=== PATIENT | male | born 1955 ===

== ENCOUNTER → 2020-10-21 10:22 | Outpatient (BNVA) | payer OTHER, SELFPAY | PROVIDERS: PCP Internal Medicine Medical Oncology; Visit Provider Surgery Vascular Surgery ==

== ENCOUNTER 2020-11-01 09:42 | Outpatient (REF) | payer OTHER, SELFPAY ==
--- NOTE | ~2020-11-01 | US_ITS ---
EXAMINATION: US ANTONY COMPLETE US COLOR-FLOW ARTERIAL DUPLEX, LOWER EXTREMITY, BILATERAL VELOCITY MEASUREMENTS TO THE POPLITEAL ARTERIES CLINICAL INFORMATION: Peripheral vascular disease. COMPARISON: None. TECHNIQUE: Real-time ultrasound and Doppler techniques (integrating B-mode 2D vascular images, Doppler spectral analysis and color flow Doppler imaging) were utilized to interrogate the bilateral lower extremities. . FINDINGS: ANTONY: Right: 0.68. Left: 0.85. The right brachial artery measures 170 mmHg with the left brachial artery pressure measuring 192 mmHg, question right innominate or subclavian artery stenosis. RIGHT LOWER EXTREMITY: The right common femoral artery has a triphasic waveform with peak systolic velocity of 195 cm/s. The right profunda femoral artery has a triphasic waveform with peak systolic velocity of 329 cm/s. The proximal superficial femoral artery has a triphasic waveform with peak systolic velocity of 141 cm/s. There is calcified plaque seen throughout the superficial femoral artery. Mid superficial femoral artery has a monophasic waveform with peak systolic velocity of 319. The distal superficial femoral artery has a monophasic waveform with peak systolic velocity of 55 cm/s. The popliteal artery has a monophasic waveform with peak systolic velocity of 35 cm/s. The posterior tibial artery has a biphasic waveform with peak systolic velocity of 55 cm/s. The peroneal has a monophasic waveform with a peak systolic velocity of 36 cm/s. LEFT LOWER EXTREMITY: Common femoral artery demonstrates a triphasic waveform with peak systolic velocity of 170 cm/s. The profunda femoral artery has a biphasic waveform with peak systolic velocity of 213 cm/s. The proximal superficial femoral artery has a biphasic waveform with peak systolic velocity of 132 cm/s. The mid superficial femoral artery has a biphasic waveform with peak systolic velocity of 264 cm/s. The distal superficial femoral artery has a biphasic waveform with peak systolic velocity of 84 cm/s. The popliteal artery has a biphasic waveform with peak systolic velocity of 97 cm/s. Posterior tibial artery has a biphasic waveform with peak systolic velocity of 60 cm/s. The peroneal has a biphasic waveform with peak systolic velocity of 65 cm/s. US/US arterial duplex LE BI IMPRESSION: 1. Bilateral calcified vessels throughout. 2. Right ANTONY of 0.68 corresponding to moderate arterial disease. 3. Left ANTONY is 0.85 corresponding to a mild arterial disease. 4. Right lower extremity duplex Doppler evaluation demonstrates elevation of the right profunda femoral artery velocity consistent with hemodynamically significant stenosis at its origin. There is also elevation of the mid superficial femoral artery velocity with monophasic waveform present and large amount of calcified plaque representing a hemodynamically significant stenosis. 5. Left lower extremity duplex Doppler ultrasound evaluation demonstrates hemodynamically significant stenoses within the profunda femoral artery and mid superficial femoral artery.
== END 2020-11-01 09:43 | disposition home or self-care (01) ==
LOC: HO.US 09:42
PROVIDERS: PCP Internal Medicine Medical Oncology; Visit Provider Surgery Vascular Surgery
DX: I70.213 Atherosclerosis of native arteries of extremities with intermittent claudication, bilateral legs (principal)
CPT/HCPCS: 93923; 93925

== ENCOUNTER → 2020-11-19 11:39 | Outpatient (BNVA) | payer OTHER, SELFPAY | PROVIDERS: PCP Internal Medicine Medical Oncology; Visit Provider Surgery Vascular Surgery ==

== ENCOUNTER 2020-11-24 07:28 | Day surgery (SDC) | payer OTHER, SELFPAY ==
[2020-11-24 07:51] VITALS: BMI 25.9
[2020-11-24 08:02] LABS: MANUAL DIFF FLAG NO
[2020-11-24 08:04] LABS: Basophils Percent Auto 0.4 % (0-2); Eosinophils Absolute Auto 0.2 X10*3/uL (0.0-0.4); Eosinophils Percent Auto 3.2 % (0-4); Hemoglobin 15.4 g/dl (14.0-18.0); Imm Gran Abs Auto 0.01 X10*3/uL (0.00-0.03); Imm Gran Pct Auto 0.1 % (0.0-0.4); Lymphocytes Absolute Auto 2.5 X10*3/uL (1.2-4.9); Lymphocytes Percent Auto 34.7 % (20-40); Mean Corpuscular HGB Conc 32.8 g/dl (31.0-36.0); Mean Corpuscular Hemoglobin 28.1 pg (27.0-33.0); Mean Corpuscular Volume 85.6 fL (80-98); Mean Platelet Volume 9.9 fL (9.4-12.4); Monocytes Absolute Auto 0.6 X10*3/uL (0.1-1.2); Monocytes Percent Auto 8.9 % (2-11); Neutrophils Absolute Auto 3.8 X10*3/uL (2.0-8.3); Neutrophils Percent Auto 52.7 % (45-73); Platelet Count 162 X10*3/uL (160-400); Red Blood Count 5.49 X10*6/uL (4.60-5.80); White Blood Count 7.2 X10*3/uL (4.8-10.8)
[2020-11-24] MEDS: 0.9 % Sodium Chloride 1,000 ML 100 ML IVCONT (08:12)
[2020-11-24 08:15] LABS: Partial Thromboplastin Time 32.2 SEC (24.1-38.0)
[2020-11-24 08:16] LABS: Prothrombin Time 11.4 SEC (10.8-13.0)
[2020-11-24 08:35] LABS: Anion Gap 10 (12-20); Blood Urea Nitrogen 16 mg/dL (9-16); Calcium 9.3 mg/dL (8.4-10.2); Carbon Dioxide 30 mmol/L (22-29); Chloride 103 mmol/L (96-108); Creatinine Clr Calc Pharmacy 65.4; Estimated Glomerular Filt Rate > 60; Glucose Random 112 mg/dL (60-115); Potassium 4.6 mmol/L (3.3-5.1); Sodium 138 mmol/L (135-145)
--- NOTE | 2020-11-24 12:09 | W.PM.OPN ---
Operative Note Operative Note Date of Service: 11/24/20 Narrative: Angiogram report from [facility] Preoperative diagnosis: Atherosclerosis of right lower extremity with activity limiting claudication Postoperative diagnosis: Same Procedure: 1. Ultrasound-guided left common femoral access 2. Aortogram with bilateral lower extremity runoff 3. Atherectomy and plasty of right SFA Surgeon:David Shelton M.D. Electromechanical Assembly Technician:None Anesthesia: Local with moderate conscious sedation for a total of 54 minutes, performed by md Specimens:none Drains:none Estimated blood loss: Less than 10 ml Indications: 65-year-old gentleman with activity limiting claudication. He had noninvasive testing which demonstrated SFA disease. He now presents for endovascular intervention. The patient has signed the informed consent after reviewing risks, complications, benefits, and alternatives previously discussed with the patient in my office. The patient was given the opportunity to ask any additional questions or voice any concerns. All questions were answered to the patient's satisfaction. Procedure in detail: Patient was brought to the angiography suite prior to which a time-out was called for patient identification and site verification. Bilateral groins were prepped and draped in the standard surgical fashion. Under ultrasound guidance left common femoral was punctured with micro puncture needle and wire. Subsequently a precision 4 [place] sheath was then placed. The FeedRoom wire was advanced to the level of the aorta. 4 [place] Flush catheter was brought up and parked at the level of the renal arteries. Aortogram was then undertaken. Catheter was brought down to the level of the iliac bifurcation. Iliacs were subsequently imaged. Catheter was then brought in up and over to the right side SFA. Runoff study was then undertaken. At this point we identified the mid SFA high-grade lesion. We were able to traverse this with an 035 wire. At this 5000 units of systemic heparin was given. An up and over 6 [place] sheath was then placed and have right side. We then exchanged out for a spider wire. A Hawk 1 atherectomy device was used in the mid SFA. For passes of the atherectomy device was then undertaken. Once this was accomplished it demonstrated reasonable result. We followed this up with a drug coated 6 x 80 balloon. This was brought into position under 3 minutes. And insufflated for a total of 3 minutes in duration. Once this was accomplished catheter wire sheath was brought back to the ipsilateral side. Through the sheath the left lower extremity runoff was then undertaken. Once this is accomplished StarClose closure device was then placed. At the end of the case sponge instrument counts were correct. Patient tolerated the procedure well. Returned to recovery with stable vitals. Interpretation of films: 1. Ultrasound demonstrates appropriate femoral puncture. Image of which was saved. 2. Aortogram demonstrates appropriate caliber aorta. Minimal disease. Appropriate take-off of the renals. 3. Iliac images demonstrate good flow through bilateral iliacs. Mild tortuosity. 4. Right lower extremity study demonstrated good flow through the common femoral and profundus SFA had good flow in the proximal portion midportion had high-grade stenosis immediately reconstituted good flow through the popliteal and 3 vessel runoff. 5. Left over lower extremity runoff study was a mere image of the right. Good flow through the common femoral and profundus mid SFA had a high-grade stenosis. Goes all the way down normal flow down into the popliteal and good 3 vessel runoff. 6. Completion right lower extremity image demonstrated excellent flow through the right SFA. Conclusion: 1. Successful atherectomy and plasty of right SFA. Due to the use of a drug coated balloon he will require a minimum of 6 months of Plavix and aspirin. This note is constructed using voice recognition software. While every effort has been made to ensure accuracy, hand singer errors may have been included. Thank you for allowing me to participate in the care of your patient. Yours sincerely, David Shelton MD, FACS, R.P.V.I.
[2020-11-24 12:30] VITALS: BP 170/78; PULSE 85; RESP 17; TEMP 36.2; O2SAT 98
[2020-11-24] MEDS: Clopidogrel Bisulfate 300 MG TABLET PO (12:43)
[2020-11-24 12:45] VITALS: BP 167/80; PULSE 80; RESP 17; O2SAT 98
[2020-11-24 13:00] VITALS: BP 177/80; PULSE 83; RESP 17; O2SAT 98
[2020-11-24 13:15] VITALS: BP 160/79; PULSE 88; RESP 17; O2SAT 98
[2020-11-24 13:30] VITALS: BP 171/83; PULSE 81; RESP 17; TEMP 36.4; O2SAT 98
--- NOTE | 2020-11-24 13:45 | PC.NURSE ---
Patient arrived to pacu with a nickel size hematoma to left groin. 1230 noted hematoma to be increasing in size from nickel to golfball then to tennis ball by 1245. Pressure and ice applied hematoma stable. Dr. shelton notified and questioned if still ok to be discharged at 1400. Dr. Shelton said yes.
[2020-11-24 14:00] VITALS: BP 153/85; PULSE 81; RESP 17; TEMP 36.7; O2SAT 97
== END 2020-11-24 11:20 | disposition home or self-care (01) ==
PROVIDERS: PCP Internal Medicine Medical Oncology; Visit Provider Surgery Vascular Surgery
DX: I70.211 Atherosclerosis of native arteries of extremities with intermittent claudication, right leg (principal); H91.90 Unspecified hearing loss, unspecified ear; E78.5 Hyperlipidemia, unspecified; Z79.82 Long term (current) use of aspirin
CPT/HCPCS: 36415; 37225; 76937; 80048; 85025; 85610; 85730; 99152; 99153; C1714; C1725; C1760; C1769; C1884; C1887; J2250; J3010; Q9967

== ENCOUNTER → 2020-12-09 14:58 | Outpatient (BNVA) | payer OTHER, SELFPAY | PROVIDERS: PCP Internal Medicine Medical Oncology; Visit Provider Surgery Vascular Surgery ==

== ENCOUNTER 2021-03-07 08:22 | Outpatient (REF) | payer OTHER, SELFPAY ==
--- NOTE | ~2021-03-07 | US_ITS ---
EXAMINATION: US ANTONY COMPLETE US COLOR-FLOW ARTERIAL DUPLEX, LOWER EXTREMITY, BILATERAL VELOCITY MEASUREMENTS TO THE POPLITEAL ARTERIES CLINICAL INFORMATION: Peripheral vascular disease. COMPARISON: Comparison is made to a previous study dated 11/01/2020. TECHNIQUE: Real-time ultrasound and Doppler techniques (integrating B-mode 2D vascular images, Doppler spectral analysis and color flow Doppler imaging) were utilized to interrogate the bilateral lower extremities. . FINDINGS: ANTONY: Right: 0.89. Previously, 0.68. This is improved. Left: 0.84. Previously, 0.85. The right brachial artery measures 195 mmHg with the left brachial artery pressure measuring 179 mmHg, question right innominate or subclavian artery stenosis. RIGHT LOWER EXTREMITY: The right common femoral artery has a triphasic waveform with peak systolic velocity of 240 cm/s. Previously, this measured 1 95 cm/s. The right profunda femoral artery has a triphasic waveform with peak systolic velocity of 259 cm/s. Previously, this measured 329 cm/s. The proximal superficial femoral artery has a triphasic waveform with peak systolic velocity of 217 cm/s. Previously, this measured 141 cm/s. There is calcified plaque seen throughout the superficial femoral artery. Mid superficial femoral artery has a biphasic waveform with peak systolic velocity of 124 cm/s. Previously, 319. This represents an improvement. The distal superficial femoral artery has a biphasic waveform with peak systolic velocity of 227 cm/s. Previously, 55 cm/s. This represents a change or a measurement that overlaps with the mid area previously. The popliteal artery has a biphasic waveform with peak systolic velocity of 93 cm/s. Previously, 35 cm/s. The posterior tibial artery has a biphasic waveform with peak systolic velocity of 95 cm/s. Previously, 55 cm/s. LEFT LOWER EXTREMITY: Common femoral artery demonstrates a biphasic waveform with peak systolic velocity of 160 cm/s. Previously, 170 cm/s. The profunda femoral artery has a triphasic waveform with peak systolic velocity of 184 cm/s. Previously, 213 cm/s. The proximal superficial femoral artery has a biphasic waveform with peak systolic velocity of 1 42 cm/s. Previously, 132 cm/s. The mid superficial femoral artery has a biphasic waveform with peak systolic velocity of 329 cm/s. Previously, 264 cm/s. The distal superficial femoral artery has a biphasic waveform with peak systolic velocity of 84 cm/s. Previously, 84 cm/s. The popliteal artery has a biphasic waveform with peak systolic velocity of 80 cm/s. Previously, 97 cm/s. Posterior tibial artery has a biphasic waveform with peak systolic velocity of 25 cm/s. Previously, 60 cm/s. US/US arterial duplex LE BI IMPRESSION: 1. Bilateral calcified vessels throughout. 2. Right ANTONY of 0.89 is improved and represents mild arterial disease. Previously this measured 0.68. 3. Left ANTONY is 0.84 corresponding to a mild arterial disease and is not significantly changed. 4. Right lower extremity duplex Doppler evaluation demonstrates elevation of the right common femoral artery, profunda femoral artery, proximal right superficial femoral artery, distal right superficial femoral artery velocity consistent with hemodynamically significant stenosis. 5. Left lower extremity duplex Doppler ultrasound evaluation demonstrates hemodynamically significant stenoses within the mid superficial femoral artery. This was seen previously and is likely unchanged.
== END 2021-03-07 08:23 | disposition home or self-care (01) ==
LOC: HO.US 08:22
PROVIDERS: PCP Internal Medicine Medical Oncology; Visit Provider Surgery Vascular Surgery
DX: I70.213 Atherosclerosis of native arteries of extremities with intermittent claudication, bilateral legs (principal)
CPT/HCPCS: 93923; 93925

== ENCOUNTER → 2021-03-24 15:10 | Outpatient (BNVA) | payer OTHER, SELFPAY | PROVIDERS: PCP Internal Medicine Medical Oncology; Visit Provider Surgery Vascular Surgery ==

== ENCOUNTER 2021-06-16 06:17 | Outpatient (REF) | payer OTHER, SELFPAY ==
[2021-06-16 06:23] LABS: MANUAL DIFF FLAG NO
[2021-06-16 07:40] LABS: Basophils Percent Auto 0.5 % (0-2); Eosinophils Absolute Auto 0.2 X10*3/uL (0.0-0.4); Eosinophils Percent Auto 3.6 % (0-4); Hematocrit 45.3 % (42.0-52.0); Imm Gran Abs Auto 0.02 X10*3/uL (0.00-0.03); Imm Gran Pct Auto 0.3 % (0.0-0.4); Lymphocytes Absolute Auto 2.3 X10*3/uL (1.2-4.9); Lymphocytes Percent Auto 37.9 % (20-40); Mean Corpuscular HGB Conc 33.1 g/dl (31.0-36.0); Mean Corpuscular Hemoglobin 28.1 pg (27.0-33.0); Mean Platelet Volume 10.5 fL (9.4-12.4); Monocytes Absolute Auto 0.6 X10*3/uL (0.1-1.2); Monocytes Percent Auto 9.8 % (2-11); Neutrophils Absolute Auto 2.9 x10*3/uL (2.0-8.3); Neutrophils Percent Auto 47.9 % (45-73); Platelet Count 179 X10*3/uL (160-400); Red Blood Count 5.33 X10*6/uL (4.60-5.80); Red Cell Distribution Width 12.7 % (11.0-16.0); White Blood Count 6.1 X10*3/uL (4.8-10.8)
[2021-06-16 08:30] LABS: Alanine Aminotransferase 21 U/L (0-40); Albumin Level 4.1 g/dL (3.5-5.0); Alkaline Phosphatase 69 U/L (39-117); Anion Gap 11 (12-20); Aspartate Amino Transferase 20 U/L (5-37); Bilirubin Total 0.6 mg/dL (0.0-1.0); Blood Urea Nitrogen 17 mg/dL (9-16); Calcium 8.9 mg/dL (8.4-10.2); Carbon Dioxide 27 mmol/L (22-29); Chloride 106 mmol/L (96-108); Cholesterol 193 mg/dL; Estimated Glomerular Filt Rate > 60; Glucose Fasting 120 mg/dL (60-99); HDL Cholesterol 51 mg/dL; LDL Cholesterol Calculated 124 mg/dl; Potassium 4.7 mmol/L (3.3-5.1); Sodium 139 mmol/L (135-145); Total Protein 6.9 g/dL (6.5-8.0); Triglycerides 91 mg/dL; Uric Acid 7.3 mg/dL (3.4-7.0)
[2021-06-16 08:40] LABS: Prostate Specific Antigen 1.71 ng/mL (<0.05-4.0)
== END 2021-06-16 06:18 | disposition home or self-care (01) ==
LOC: HO.LAB 06:17
PROVIDERS: PCP Internal Medicine Medical Oncology; Visit Provider Internal Medicine Medical Oncology
DX: Z12.5 Encounter for screening for malignant neoplasm of prostate (principal); E78.5 Hyperlipidemia, unspecified; E66.3 Overweight
CPT/HCPCS: 36415; 80053; 80061; 84153; 84550; 85025

== ENCOUNTER 2021-06-23 11:26 | Outpatient (REF) | payer OTHER, SELFPAY | END 2021-06-23 11:27 | disposition home or self-care (01) | LOC: HO.LAB 11:26 | PROVIDERS: PCP Internal Medicine Medical Oncology; Visit Provider Internal Medicine Medical Oncology | DX: Z20.822 Contact with and (suspected) exposure to COVID-19 (principal) | CPT/HCPCS: C9803; U0003; U0005 ==

== ENCOUNTER 2021-09-29 13:18 | Outpatient (REF) | payer OTHER, SELFPAY ==
--- NOTE | ~2021-09-29 | US_ITS ---
EXAMINATION: ANKLE-BRACHIAL INDICES SINGLE LEVEL PULSE VOLUME RECORDING ARTERIAL DUPLEX BILATERAL LEGS CLINICAL INFORMATION: Peripheral arterial disease. Right atherectomy. COMPARISON: 03/07/2021 TECHNIQUE: Ankle-brachial indices and PVR at the ankle were obtained. Duplex Doppler of the bilateral lower extremity arterial systems was performed. FINDINGS: RIGHT: Ankle-brachial index: 1.02 PVR: Normal Common femoral: PSV 229 cm/s. Triphasic waveform. Deep femoral: PSV 253 cm/s. Triphasic waveform. Proximal superficial femoral: PSV 297 cm/s. Biphasic waveform. Visible moderate stenosis. Mid superficial femoral: PSV 142 cm/s. Biphasic waveform. Distal superficial femoral: PSV 202 cm/s. Biphasic waveform. Popliteal: PSV 94 cm/s. Biphasic waveform. Posterior tibial: PSV 110 cm/s. Biphasic waveform. Peroneal: PSV 54 cm/s. Biphasic waveform. LEFT: Ankle-brachial index: 0.74 PVR: Mildly abnormal Common femoral: PSV 152 cm/s. Biphasic waveform. Deep femoral: PSV 221 cm/s. Triphasic waveform. Proximal superficial femoral: PSV 129 cm/s. Triphasic waveform. Mid superficial femoral: PSV 456 cm/s. Triphasic waveform. Visible severe stenosis. Distal superficial femoral: PSV 72 cm/s. Triphasic waveform. Popliteal: PSV 75 cm/s. Monophasic waveform. Posterior tibial: PSV the cm/s. Monophasic waveform. Peroneal: PSV 38 cm/s. Monophasic waveform. US/US arterial duplex LE BI IMPRESSION: Right: Normal ANTONY 1.02 and normal PVR. Diffuse femoropopliteal and tibial atherosclerotic disease with a moderate focal stenosis in the proximal superficial femoral artery. Left: Abnormal ANTONY 0.74 and abnormal PVR. Diffuse femoropopliteal and tibial atherosclerotic disease with a severe focal stenosis in the mid superficial femoral artery.
--- NOTE | ~2021-09-29 | US_ITS ---
EXAMINATION: ANKLE-BRACHIAL INDICES SINGLE LEVEL PULSE VOLUME RECORDING ARTERIAL DUPLEX BILATERAL LEGS CLINICAL INFORMATION: Peripheral arterial disease. Right atherectomy. COMPARISON: 03/07/2021 TECHNIQUE: Ankle-brachial indices and PVR at the ankle were obtained. Duplex Doppler of the bilateral lower extremity arterial systems was performed. FINDINGS: RIGHT: Ankle-brachial index: 1.02 PVR: Normal Common femoral: PSV 229 cm/s. Triphasic waveform. Deep femoral: PSV 253 cm/s. Triphasic waveform. Proximal superficial femoral: PSV 297 cm/s. Biphasic waveform. Visible moderate stenosis. Mid superficial femoral: PSV 142 cm/s. Biphasic waveform. Distal superficial femoral: PSV 202 cm/s. Biphasic waveform. Popliteal: PSV 94 cm/s. Biphasic waveform. Posterior tibial: PSV 110 cm/s. Biphasic waveform. Peroneal: PSV 54 cm/s. Biphasic waveform. LEFT: Ankle-brachial index: 0.74 PVR: Mildly abnormal Common femoral: PSV 152 cm/s. Biphasic waveform. Deep femoral: PSV 221 cm/s. Triphasic waveform. Proximal superficial femoral: PSV 129 cm/s. Triphasic waveform. Mid superficial femoral: PSV 456 cm/s. Triphasic waveform. Visible severe stenosis. Distal superficial femoral: PSV 72 cm/s. Triphasic waveform. Popliteal: PSV 75 cm/s. Monophasic waveform. Posterior tibial: PSV the cm/s. Monophasic waveform. Peroneal: PSV 38 cm/s. Monophasic waveform. US/US ANTONY complete IMPRESSION: Right: Normal ANTONY 1.02 and normal PVR. Diffuse femoropopliteal and tibial atherosclerotic disease with a moderate focal stenosis in the proximal superficial femoral artery. Left: Abnormal ANTONY 0.74 and abnormal PVR. Diffuse femoropopliteal and tibial atherosclerotic disease with a severe focal stenosis in the mid superficial femoral artery.
== END 2021-09-29 13:19 | disposition home or self-care (01) ==
LOC: HO.US 13:18
PROVIDERS: PCP Internal Medicine Medical Oncology; Visit Provider Surgery Vascular Surgery
DX: I73.9 Peripheral vascular disease, unspecified (principal)
CPT/HCPCS: 93923; 93925

== ENCOUNTER → 2021-10-06 14:58 | Outpatient (BNVA) | payer OTHER, SELFPAY | PROVIDERS: PCP Internal Medicine Medical Oncology; Visit Provider Surgery Vascular Surgery ==

== ENCOUNTER 2021-12-01 06:37 | Outpatient (REF) | payer OTHER, SELFPAY ==
[2021-12-01 06:52] LABS: MANUAL DIFF FLAG NO
[2021-12-01 07:22] LABS: Basophils Percent Auto 0.5 % (0-2); Eosinophils Absolute Auto 0.2 X10*3/uL (0.0-0.4); Eosinophils Percent Auto 3.5 % (0-4); Hematocrit 44.3 % (42.0-52.0); Hemoglobin 14.6 g/dl (14.0-18.0); Imm Gran Abs Auto 0.01 X10*3/uL (0.00-0.03); Imm Gran Pct Auto 0.2 % (0.0-0.4); Lymphocytes Absolute Auto 2.5 X10*3/uL (1.2-4.9); Lymphocytes Percent Auto 41.5 % (20-40); Mean Corpuscular Volume 84.9 fL (80.0-98.0); Mean Platelet Volume 10.1 fL (9.4-12.4); Monocytes Absolute Auto 0.6 X10*3/uL (0.1-1.2); Neutrophils Absolute Auto 2.7 x10*3/uL (2.0-8.3); Neutrophils Percent Auto 44.3 % (45-73); Platelet Count 153 X10*3/uL (160-400); Red Blood Count 5.22 X10*6/uL (4.60-5.80); Red Cell Distribution Width 12.5 % (11.0-16.0)
[2021-12-01 07:49] LABS: Alanine Aminotransferase 20 U/L (0-40); Albumin Level 4.1 g/dL (3.5-5.0); Alkaline Phosphatase 69 U/L (39-117); Anion Gap 12 (12-20); Aspartate Amino Transferase 19 U/L (5-37); Bilirubin Total 0.7 mg/dL (0.0-1.0); Blood Urea Nitrogen 16 mg/dL (9-16); Calcium 9.4 mg/dL (8.4-10.2); Carbon Dioxide 26 mmol/L (22-29); Chloride 105 mmol/L (96-108); Cholesterol 204 mg/dL; Estimated Glomerular Filt Rate > 60; Glucose Fasting 124 mg/dL (60-99); HDL Cholesterol 50 mg/dL; LDL Cholesterol Calculated 138 mg/dl; Potassium 5.4 mmol/L (3.3-5.1); Sodium 138 mmol/L (135-145); Total Protein 6.8 g/dL (6.5-8.0); Triglycerides 84 mg/dL
[2021-12-01 08:12] LABS: Prostate Specific Antigen 1.43 ng/mL (<0.05-4.0)
== END 2021-12-01 06:38 | disposition home or self-care (01) ==
LOC: HO.LAB 06:37
PROVIDERS: PCP Internal Medicine Medical Oncology; Visit Provider Internal Medicine Medical Oncology
DX: E78.5 Hyperlipidemia, unspecified (principal); I10 Essential (primary) hypertension; N52.9 Male erectile dysfunction, unspecified
CPT/HCPCS: 36415; 80053; 80061; 84153; 85025

== ENCOUNTER 2022-06-05 15:55 | Outpatient (REF) | payer OTHER, SELFPAY ==
--- NOTE | ~2022-06-05 | XR_ITS ---
EXAMINATION: XR HIP, RIGHT XR HIP, LEFT CLINICAL INFORMATION: Bilateral hip pain. COMPARISON: Pelvic radiographs 06/05/2022. TECHNIQUE: Each hip is imaged in AP and frog-lateral projections. There are a total of 4 views, 2 on each side. FINDINGS: No hip joint narrowing or erosive change on either side. No visible chondrocalcinosis. Minor bilateral spurring greater trochanters. Soft tissue planes appears symmetric. Normal bony mineralization. No destructive process. Pubis unremarkable. Vasectomy clips present. XR/XR hip RT min 2V IMPRESSION: -No hip joint narrowing or erosive change. -Minor bilateral spurring greater trochanters.
--- NOTE | ~2022-06-05 | XR_ITS ---
EXAMINATION: XR HIP, RIGHT XR HIP, LEFT CLINICAL INFORMATION: Bilateral hip pain. COMPARISON: Pelvic radiographs 06/05/2022. TECHNIQUE: Each hip is imaged in AP and frog-lateral projections. There are a total of 4 views, 2 on each side. FINDINGS: No hip joint narrowing or erosive change on either side. No visible chondrocalcinosis. Minor bilateral spurring greater trochanters. Soft tissue planes appears symmetric. Normal bony mineralization. No destructive process. Pubis unremarkable. Vasectomy clips present. XR/XR hip LT min 2V IMPRESSION: -No hip joint narrowing or erosive change. -Minor bilateral spurring greater trochanters.
--- NOTE | ~2022-06-05 | XR_ITS ---
EXAMINATION: XR PELVIS XR SACRUM/COCCYX CLINICAL INFORMATION: Low back pain and bilateral hip pain. COMPARISON: Bilateral hip radiographs 06/05/2022 TECHNIQUE: AP view pelvis is performed. The sacrum and coccyx are imaged in 3 views. There are a total of 4 views FINDINGS: Normal bony mineralization. No fracture, dislocation, destructive process. There are degenerative changes lower lumbar spine with disc narrowing and vertebral spurring. The SI joints show no diastases or ankylosis or erosive change. The pubis is unremarkable. Bowel gas normal. There are atherosclerotic calcifications iliac and femoral arteries. XR/XR pelvis 1-2V IMPRESSION: 1. No fracture or destructive process. 2. Degenerative changes lower lumbar spine. 3. Unremarkable SI joints.
--- NOTE | ~2022-06-05 | XR_ITS ---
EXAMINATION: XR PELVIS XR SACRUM/COCCYX CLINICAL INFORMATION: Low back pain and bilateral hip pain. COMPARISON: Bilateral hip radiographs 06/05/2022 TECHNIQUE: AP view pelvis is performed. The sacrum and coccyx are imaged in 3 views. There are a total of 4 views FINDINGS: Normal bony mineralization. No fracture, dislocation, destructive process. There are degenerative changes lower lumbar spine with disc narrowing and vertebral spurring. The SI joints show no diastases or ankylosis or erosive change. The pubis is unremarkable. Bowel gas normal. There are atherosclerotic calcifications iliac and femoral arteries. XR/XR sacrum coccyx min 2V IMPRESSION: 1. No fracture or destructive process. 2. Degenerative changes lower lumbar spine. 3. Unremarkable SI joints.
== END 2022-06-05 15:56 | disposition home or self-care (01) ==
LOC: HO.XRAY 15:55
PROVIDERS: PCP Internal Medicine Medical Oncology; Visit Provider Internal Medicine Medical Oncology
DX: M25.551 Pain in right hip (principal); M25.552 Pain in left hip; M54.50 Low back pain, unspecified
CPT/HCPCS: 72170; 72220; 73502

== ENCOUNTER 2022-09-28 13:13 | Outpatient (REF) | payer OTHER, SELFPAY ==
--- NOTE | ~2022-09-28 | US_ITS ---
EXAMINATION: ANKLE-BRACHIAL INDICES SINGLE LEVEL PULSE VOLUME RECORDING ARTERIAL DUPLEX BILATERAL LEGS CLINICAL INFORMATION: Peripheral vascular disease COMPARISON: 09/29/21. TECHNIQUE: Ankle-brachial indices and PVR at the ankle were obtained. Duplex Doppler of the bilateral lower extremity arterial systems was performed. FINDINGS: RIGHT: Ankle-brachial index: 1.06. Prior 1.02. PVR: Normal Common femoral: PSV 258 cm/s. Biphasic waveform. Deep femoral: PSV 122 cm/s. Triphasic waveform. Proximal superficial femoral: PSV 141 cm/s. Triphasic waveform. Mid superficial femoral: PSV 122 cm/s. Triphasic waveform. Distal superficial femoral: PSV 128 cm/s. Biphasic waveform. Popliteal: PSV 73 cm/s. Triphasic waveform. Posterior tibial: PSV 90 cm/s. Biphasic waveform. Peroneal: PSV 60 cm/s. Triphasic waveform. LEFT: Ankle-brachial index: 0.75. Prior 0.74. PVR: Mildly abnormal Common femoral: PSV 114 cm/s. Biphasic waveform. Deep femoral: PSV 94 cm/s. Triphasic waveform. Proximal superficial femoral: PSV 76 cm/s. Triphasic waveform. Mid superficial femoral: PSV 239 cm/s. Monophasic waveform. Moderate focal stenosis. Distal superficial femoral: PSV 74 cm/s. Monophasic waveform. Popliteal: PSV 52 cm/s. Monophasic waveform. Posterior tibial: PSV 66 cm/s. Monophasic waveform. Peroneal: PSV 40 cm/s. Monophasic waveform. US/US arterial duplex LE BI IMPRESSION: Right: Normal ANTONY 1.06 and normal PVR. Diffuse femoropopliteal and tibial atherosclerotic disease without hemodynamically significant stenosis. Left: Abnormal ANTONY 0.75 and mildly abnormal PVR. Diffuse femoropopliteal and tibial atherosclerotic disease with a moderate focal stenosis in the mid superficial femoral artery.
== END 2022-09-28 13:14 | disposition home or self-care (01) ==
LOC: HO.US 13:13
PROVIDERS: PCP Internal Medicine Medical Oncology; Visit Provider Surgery Vascular Surgery
DX: I70.213 Atherosclerosis of native arteries of extremities with intermittent claudication, bilateral legs (principal)
CPT/HCPCS: 93925

== ENCOUNTER → 2022-11-03 08:05 | Outpatient (REF) | payer OTHER, SELFPAY ==
--- NOTE | 2022-11-03 08:08 | CA_ITS ---
Acquisition Time: 2022-11-03 08:19:40 Total Exercise Time: 00:06:00 Test Indications: SOB Medications: Protocol: RASHEED Max HR: 131 BPM 86% of Pred: 151 BPM Max BP: 200/044 mmHG Max Work Load: 7.0 METS Exercise stress test with exercise 6 min of Rasheed protocol, achieving 86% MPHR, with report of hip pain and calf tightness with request to stop, without anginal symptoms, with isolated PACs and PVCs, atrial cuplets, with hypertensive response to exercise with max BP 200/44, with EKG changes meeting critieria for ischemia: 2-3mm downsloping ST depression inferiorly, V3-V6 with slow gradual improvement in recovery. EKGs back to baseline after 12 minutes. Test reviewed with Dr Mcgarry. Pt is on aspirin and metoprolol. He denies exertional angina Informed of + stress test findings and that he needs further cardiac evaluation. Instructed on light physical activity only. ED care if needed for any symptoms. Message sent to Dr Perez with report and recommendation for exercise nuclear stress test and cardiology consult. Referred By: Daniele Perez Overread By: BC RASHEED
== END ==
LOC: HO.CARD 08:05
PROVIDERS: PCP Internal Medicine Medical Oncology; Visit Provider Internal Medicine Medical Oncology
DX: I77.9 Disorder of arteries and arterioles, unspecified (principal); R06.09 Other forms of dyspnea
CPT/HCPCS: 93017

== ENCOUNTER 2022-11-03 09:05 | Outpatient (REF) | payer OTHER, SELFPAY ==
[2022-11-03 09:15] LABS: MANUAL DIFF FLAG NO
[2022-11-03 09:55] LABS: Basophils Absolute Auto 0.1 X10*3/uL (0.0-0.2); Basophils Percent Auto 0.8 % (0-2); Eosinophils Absolute Auto 0.1 X10*3/uL (0.0-0.4); Eosinophils Percent Auto 1.6 % (0-4); Hematocrit 43.5 % (42.0-52.0); Hemoglobin 14.5 g/dl (14.0-18.0); Imm Gran Abs Auto 0.02 X10*3/uL (0.00-0.03); Imm Gran Pct Auto 0.3 % (0.0-0.4); Lymphocytes Absolute Auto 1.8 X10*3/uL (1.2-4.9); Lymphocytes Percent Auto 28.6 % (20-40); Mean Corpuscular HGB Conc 33.3 g/dl (31.0-36.0); Mean Corpuscular Hemoglobin 28.4 pg (27.0-33.0); Mean Corpuscular Volume 85.1 fL (80.0-98.0); Mean Platelet Volume 10.4 fL (9.4-12.4); Monocytes Absolute Auto 0.6 X10*3/uL (0.1-1.2); Neutrophils Absolute Auto 3.7 x10*3/uL (2.0-8.3); Neutrophils Percent Auto 59.7 % (45-73); Platelet Count 191 X10*3/uL (160-400); Red Blood Count 5.11 X10*6/uL (4.60-5.80); Red Cell Distribution Width 12.6 % (11.0-16.0); White Blood Count 6.2 X10*3/uL (4.8-10.8)
[2022-11-03 10:25] LABS: Alanine Aminotransferase 23 U/L (0-40); Albumin Level 4.1 g/dL (3.5-5.0); Alkaline Phosphatase 76 U/L (39-117); Anion Gap 13 (12-20); Aspartate Amino Transferase 20 U/L (5-37); Bilirubin Total 0.7 mg/dL (0.0-1.0); Blood Urea Nitrogen 16 mg/dL (9-16); Calcium 9.1 mg/dL (8.4-10.2); Carbon Dioxide 26 mmol/L (22-29); Chloride 107 mmol/L (96-108); Cholesterol 210 mg/dL; Estimated Glomerular Filt Rate 57; Glucose Fasting 111 mg/dL (60-99); HDL Cholesterol 50 mg/dL; LDL Cholesterol Calculated 145 mg/dl; Potassium 5.1 mmol/L (3.3-5.1); Sodium 141 mmol/L (135-145); Total Protein 6.9 g/dL (6.5-8.0); Triglycerides 77 mg/dL
== END 2022-11-03 09:06 | disposition home or self-care (01) ==
LOC: HO.LAB 09:05
PROVIDERS: Visit Provider Internal Medicine Medical Oncology
DX: Z13.89 Encounter for screening for other disorder (principal)
CPT/HCPCS: 36415; 80053; 80061; 84153; 85025

== ENCOUNTER → 2022-11-09 09:01 | Outpatient (BNVA) | payer OTHER, SELFPAY | PROVIDERS: PCP Internal Medicine Medical Oncology; Visit Provider Surgery Vascular Surgery | DX: Z13.89 Encounter for screening for other disorder (principal) ==

== ENCOUNTER → 2022-11-14 07:54 | Outpatient (REF) | payer OTHER, SELFPAY ==
--- NOTE | ~2022-11-14 | NM_ITS ---
EXERCISE MYOCARDIAL PERFUSION STUDY INDICATION: Chest pain, assess for ischemia TECHNIQUE: The patient was brought in for an exercise perfusion study on 11/14/2022. Patient performed exercise as per Jomar protocol and was injected 25 mCi of sestamibi once target heart rate was achieved. Images were obtained using the SPECT gamma camera interlaced with the gating device. Images were obtained in supine position. Resting perfusion study was performed on 11/15/2022. Patient was administered 25 mCi of sestamibi intravenously at rest. Images were then obtained in supine position. Images were processed with the software and compared side to side in short axis, horizontal long axis and vertical long axis views. Total DLP 90mGy-cm. FINDINGS: Raw images were reviewed. The stress perfusion study showed no significant perfusion abnormality. Both uncorrected as well as CT attenuation corrected images were reviewed. The gated study shows normal LV systolic function with calculated LVEF of 53%. LV cavity is normal in size. The gated study shows normal wall thickening and contraction of segments. Resting study shows no significant perfusion abnormality. Gating at rest reveals normal wall motion with ejection fraction at 68%. The findings are consistent with no clear reversible or fixed perfusion defects. NM/NM amanda perf SPECT rest & str IMPRESSION: 1. Myocardial perfusion imaging study shows likely normal myocardial perfusion. 2. Gated LVEF is 53% during stress and 68% during rest. 3. Transient ischemic dilatation not present. EKG component of the test reported separately.
--- NOTE | 2022-11-14 08:01 | CA_ITS ---
Acquisition Time: 2022-11-14 08:11:34 Total Exercise Time: 00:04:00 Test Indications: ABN ETT Medications: SEE H Protocol: RASHEED Max HR: 134 BPM 88% of Pred: 151 BPM Max BP: 194/058 mmHG Max Work Load: 5.7 METS Exercise stress test exercise 4 min of Rasheed protocol achieving 88% MPHR, with 3/10 right chest pressure, with PAC, PVCs, short atrial runs, with elevated blood pressures at baseline and normotensive response to exercise, with EKG changes meeting criteria for ischemia: 2-3mm downslop depression lead V3-V6, and inferiorly with slow gradual improvement in recovery. In recovery his chest discomfort quickly resolved, Nuclear images pending. Test reviewed with Dr Hurtado Finding of abnormal stress test reviewed with pt. Tang Treadmill score Neg 15, high risk. Need for cardiac cath reviewed with him and he states understanding. Will obtain preprocedure labs today. Will arrange for echocardiogram. Will continue on aspirin and Metoprolol. Will add Atorvastatin and Isosorbide. Need for each medication reviewed with him and the importance stressed. Instructed on light physical activity only and to seek ED care for symptoms that persist. Informed of high risk for ID. Cardiology consult as soon as can be arranged. Referred By: Daniele Perez Overread By: BC RASHEED
[2022-11-14 10:28] LABS: MANUAL DIFF FLAG NO
[2022-11-14 10:41] LABS: Basophils Percent Auto 0.4 % (0-2); Eosinophils Absolute Auto 0.1 X10*3/uL (0.0-0.4); Eosinophils Percent Auto 1.1 % (0-4); Hematocrit 45.2 % (42.0-52.0); Hemoglobin 14.8 g/dl (14.0-18.0); Imm Gran Abs Auto 0.02 X10*3/uL (0.00-0.03); Imm Gran Pct Auto 0.3 % (0.0-0.4); Lymphocytes Absolute Auto 1.7 X10*3/uL (1.2-4.9); Lymphocytes Percent Auto 23.7 % (20-40); Mean Corpuscular HGB Conc 32.7 g/dl (31.0-36.0); Mean Corpuscular Hemoglobin 27.7 pg (27.0-33.0); Mean Corpuscular Volume 84.5 fL (80.0-98.0); Mean Platelet Volume 9.9 fL (9.4-12.4); Monocytes Absolute Auto 0.6 X10*3/uL (0.1-1.2); Neutrophils Absolute Auto 4.9 x10*3/uL (2.0-8.3); Neutrophils Percent Auto 66.5 % (45-73); Platelet Count 150 X10*3/uL (160-400); Red Blood Count 5.35 X10*6/uL (4.60-5.80); Red Cell Distribution Width 12.8 % (11.0-16.0); White Blood Count 7.3 X10*3/uL (4.8-10.8)
[2022-11-14 10:45] LABS: INTERNATIONAL NORM RATIO 0.9 (0.9-1.1); Prothrombin Time 10.8 SEC (10.0-13.1)
[2022-11-14 11:26] LABS: Anion Gap 10 (12-20); Blood Urea Nitrogen 16 mg/dL (9-16); Calcium 9.2 mg/dL (8.4-10.2); Carbon Dioxide 29 mmol/L (22-29); Chloride 107 mmol/L (96-108); Estimated Glomerular Filt Rate 57; Glucose Random 116 mg/dL (60-115); Potassium 5.4 mmol/L (3.3-5.1); Sodium 141 mmol/L (135-145)
== END ==
LOC: HO.CARD 07:54
PROVIDERS: Nurse Practitioner Family; PCP Internal Medicine Medical Oncology; Visit Provider Internal Medicine Medical Oncology
DX: R94.39 Abnormal result of other cardiovascular function study (principal); I24.9 Acute ischemic heart disease, unspecified; I25.10 Atherosclerotic heart disease of native coronary artery without angina pectoris; R07.89 Other chest pain; E87.5 Hyperkalemia
CPT/HCPCS: 36415; 78452; 80048; 85025; 85610; 93005; 93017; A9500; J0280; J2785

== ENCOUNTER → 2022-11-15 08:02 | Outpatient (REF) | payer OTHER, SELFPAY ==
--- NOTE | 2022-11-15 08:05 | CA_ITS ---
Transthoracic Echocardiogram Patient (Last, First, Middle): Wilbert Dinero, Gender: Male Date of : 1955 Age: 67 Procedure Date: 11/15/2022 Procedure Type: Transthoracic Echocardiogram Location: OP Height: 175.26 cm Weight: 82.1 kg BSA: 1.98 m2 Heart Rate: 72 bpm BP: 160 / 70 mmHg Wardrobe Specialist: JENNIFER Referring MD: Cassi Frankel SALES ENGAGEMENT MANAGER-Miguel Boiler Water Tester: William Hurtado MD Symptoms: R94.39 - Abnormal result of other cardiovascular function study Study Quality: Adequate ECG Rhythm: Sinus Conclusions: - 1. Low normal LV ejection fraction 50-55% with impaired relaxation filling pattern with possible RCA territory wall motion abnormality 2. Mild mitral calcification with mild mitral regurgitation 3. Normal RV systolic pressure 4. No gross pericardial effusion Findings Left Ventricle Normal left ventricular cavity size. There is normal left ventricular wall thickness. The left ventricular systolic function is low normal. The visually estimated ejection fraction is between 50-55%. Spectral Doppler is indicative of an impaired relaxation filling pattern. E/E prime ratio is between 8 and 15 consistent with indeterminate filling pressures. Wall Motion Rest Echo Findings The basal inferior and basal inferoseptal segments are hypokinetic. All other scored wall segments showed normal motion. Right Ventricle Normal right ventricular cavity size and systolic function. Atria The left atrium is mildly dilated. Interatrial shunt cannot be excluded. The right atrium is normal in size. Aortic Valve Normal aortic valve structure and function. There is no aortic valve stenosis. There is no aortic valve regurgitation. Mitral Valve There is mild anterior and posterior mitral leaflet thickening. There is mild mitral annular calcification. There is mild mitral valve regurgitation. There is no mitral valve stenosis. Pulmonic Valve The pulmonic valve was not well visualized. Tricuspid Valve Likely normal tricuspid valve structure and function. There is trace tricuspid valve regurgitation. The right ventricular systolic pressure is normal. Normal right atrial pressure. There is no evidence of pulmonary hypertension. Great Vessels All visible segments of the aorta are normal in size. The pulmonary artery was not well visualized. Venous The inferior vena cava is normal in size and collapses greater than 50% with inspiration. Pericardium/Pleural There is no evidence of pericardial effusion. Prior Study Comparison No prior study available for comparison. Measurements 2D Linear Measurements IVSd: 1.14 0.6-0.9/0.6-1.0 cm LVIDd: 4.55 3.9-5.3/4.2-5.9 cm LVIDd Index: 2.30 2.4-3.2/2.2-3.1 cm/m2 LVIDs: 3.09 2.0-3.6 cm LVPWd: 0.97 0.7-1.1 cm LA Diam: 4.10 2.7-3.8/3.0-4.0 cm LAIDs Index: 2.07 1.5-2.3 cm/m2 LV Mass: 209.12 67-162/88-224 g LV Mass Index: 105.62 43-95/49-115 g/m2 LVOT Diam: 1.90 3.0+(-)1.3 cm 2D Systolic Function EF 4C: 53.20 >55% EF 2C: 50.80 >55% EF BiP: 53.50 >55% Mitral Valve MV Pk E: 0.74 MV PK A: 0.70 MV Decel Time: 189.00 E/A: 1.00 E'Lateral: 8.59 E'Medial: 7.53 E/E' Med: 9.80 E/E' Lat: 8.60 PHT: 55.00 MVA PHT: 4.00 Decel Henry: 3.90 Aortic Valve AoV Pk Francisco J: 1.22 AoV Mn Francisco J: 0.87 AoV VTI: 0.29 AoV Pk Grad: 6.00 Aov Mn Grad: 3.00 QIANA Cont.VTI: 2.04 LVOT LVOT Pk Francisco J: 0.86 LVOT Mn Francisco J: 0.63 LVOT VTI: 0.21 LVOT Pk Grad: 3.00 LVOT Mn Grad: 2.00 LVOT Diam: 1.90 LVOT Area: 2.84 Diastolic Function MV Pk E: 0.74 MV Pk A: 0.70 E/A: 1.00 E'Medial: 7.53 E/E' Med: 9.80 E' Laterial: 8.59 E/E' Lat: 8.60 Right Ventricle TAPSE (mm): 26.30 Tricuspid Valve TR Pk Francisco J: 1.83 TR Pk Grad: 13.00 RA Press: 3.00 RVSP: 16.00 Great Vessels Aorta Sinus of Valsalva: 3.20 2.0-3.5 cm Ao Asc: 3.10 2.1-3.4 cm Pulmonary Valve PV Pk Francisco J: 1.00 Peak PV Grad: 4.00 Updated in Other Vendor System with Status of Final William Hurtado MD electronically signed on 11/15/2022 3:40:06 PM with status of Final
[2022-11-15 09:07] LABS: Anion Gap 12 (12-20); Blood Urea Nitrogen 17 mg/dL (9-16); Calcium 9.2 mg/dL (8.4-10.2); Carbon Dioxide 27 mmol/L (22-29); Chloride 107 mmol/L (96-108); Estimated Glomerular Filt Rate 58; Glucose Random 163 mg/dL (60-115); Potassium 4.8 mmol/L (3.3-5.1); Sodium 141 mmol/L (135-145)
== END ==
LOC: HO.CARD 08:02
PROVIDERS: Nurse Practitioner Family; PCP Internal Medicine Medical Oncology; Visit Provider Internal Medicine
DX: R07.89 Other chest pain (principal); R94.39 Abnormal result of other cardiovascular function study; E87.5 Hyperkalemia
CPT/HCPCS: 36415; 80048; 93306

== ENCOUNTER → 2022-12-25 13:49 | Outpatient (BNVA) | payer OTHER, SELFPAY | PROVIDERS: PCP Internal Medicine Medical Oncology; Visit Provider Internal Medicine ==

== ENCOUNTER 2023-01-12 15:51 | Outpatient (REF) | payer OTHER, SELFPAY ==
[2023-01-12 17:09] LABS: Anion Gap 15 (12-20); Blood Urea Nitrogen 30 mg/dL (9-16); Calcium 9.5 mg/dL (8.4-10.2); Carbon Dioxide 25 mmol/L (22-29); Chloride 104 mmol/L (96-108); Estimated Glomerular Filt Rate 50; Glucose Random 114 mg/dL (60-115); Potassium 4.8 mmol/L (3.3-5.1); Sodium 139 mmol/L (135-145)
== END 2023-01-12 15:52 | disposition home or self-care (01) ==
LOC: HO.LAB 15:51
PROVIDERS: PCP Internal Medicine Medical Oncology; Visit Provider Internal Medicine
DX: I10 Essential (primary) hypertension (principal)
CPT/HCPCS: 36415; 80048

== ENCOUNTER → 2023-01-22 09:06 | Outpatient (REF) | payer OTHER, SELFPAY ==
--- NOTE | 2023-01-22 09:09 | CA_ITS ---
Transthoracic Echocardiogram Patient (Last, First, Middle): Wilbert Dinero, Gender: Male Date of : 1955 Age: 67 Procedure Date: 01/22/2023 Procedure Type: Transthoracic Echocardiogram Location: OP Height: 175.26 cm Weight: 75.75 kg BSA: 1.91 m2 Heart Rate: bpm BP: 140 / 60 mmHg Citizenship Instructor: FRANCY Referring MD: Jason Lynn MD Symptoms: I25.10 - Atherosclerotic heart disease of [place] coronary artery without... Study Quality: Adequate ECG Rhythm: Sinus Conclusions: - The left ventricular systolic function is normal. The calculated ejection fraction is 64% by biplane method. - The basal inferior and basal inferolateral segments are hypokinetic. - Evidence suggests grade III (severe) diastolic dysfunction. - Moderate biatrial enlargement. - There is mild mitral valve regurgitation. Findings Left Ventricle Normal left ventricular cavity size. There is normal left ventricular wall thickness. The left ventricular systolic function is normal. The calculated ejection fraction is 64% by biplane method. Evidence suggests grade III (severe) diastolic dysfunction. LV peak GLS -19.4%. Wall Motion Rest Echo Findings The basal inferior and basal inferolateral segments are hypokinetic. Right Ventricle Mildly increased right ventricular cavity size. There is mildly decreased right ventricular systolic function. Atria Moderate biatrial enlargement. Aortic Valve There is a normal trileaflet aortic valve. There is no aortic valve stenosis. There is no aortic valve regurgitation. Mitral Valve There is mild anterior mitral leaflet thickening. There is mild mitral annular calcification. There is mild mitral valve regurgitation. There is no mitral valve stenosis. Pulmonic Valve The pulmonic valve is likely normal. Tricuspid Valve Normal tricuspid valve structure. There is mild tricuspid valve regurgitation. There is no evidence of pulmonary hypertension. Great Vessels The asc aorta is normal in size. Venous The inferior vena cava is normal in size and collapses greater than 50% with inspiration. Pericardium/Pleural There is a trivial pericardial effusion. Prior Study Comparison Changes noted compared to prior study dated: 11/15/2022. Progression of diastolic dysfunction. Measurements 2D Linear Measurements IVSd: 0.92 0.6-0.9/0.6-1.0 cm LVIDd: 4.98 3.9-5.3/4.2-5.9 cm LVIDd Index: 2.61 2.4-3.2/2.2-3.1 cm/m2 LVIDs: 3.38 2.0-3.6 cm LVPWd: 0.95 0.7-1.1 cm LA Diam: 3.90 2.7-3.8/3.0-4.0 cm LAIDs Index: 2.04 1.5-2.3 cm/m2 LV Mass: 206.27 67-162/88-224 g LV Mass Index: 107.99 43-95/49-115 g/m2 LVOT Diam: 2.10 3.0+(-)1.3 cm 2D Systolic Function EF 4C: 62.10 >55% EF 2C: 64.30 >55% EF BiP: 64.20 >55% Mitral Valve MV Pk E: 1.03 MV PK A: 0.50 MV Decel Time: 170.00 E/A: 2.00 E'Lateral: 9.57 E'Medial: 5.11 E/E' Med: 20.20 E/E' Lat: 10.80 PHT: 50.00 MVA PHT: 4.40 Decel Rankin: 6.06 Aortic Valve AoV Pk Francisco J: 1.34 AoV Mn Francisco J: 0.89 AoV VTI: 0.36 AoV Pk Grad: 7.00 Aov Mn Grad: 3.00 QIANA Cont.VTI: 2.24 LVOT LVOT Pk Francisco J: 1.01 LVOT Mn Francisco J: 0.64 LVOT VTI: 0.23 LVOT Pk Grad: 4.00 LVOT Mn Grad: 2.00 LVOT Diam: 2.10 LVOT Area: 3.46 Diastolic Function MV Pk E: 1.03 MV Pk A: 0.50 E/A: 2.00 E'Medial: 5.11 E/E' Med: 20.20 E' Laterial: 9.57 E/E' Lat: 10.80 Right Ventricle TAPSE (mm): 16.50 TVS' Francisco J: 9.57 Tricuspid Valve TR Pk Francisco J: 2.80 TR Pk Grad: 31.00 RA Press: 3.00 RVSP: 34.00 Great Vessels Aorta Sinus of Valsalva: 3.07 2.0-3.[address] [place]: 2.52 1.7-3.4 cm Ao Asc: 3.10 2.1-3.4 cm Updated in Other Vendor System with Status of Final Jason Lynn MD electronically signed on 01/24/2023 10:59:19 AM with status of Final
== END ==
LOC: HO.CARD 09:06
PROVIDERS: PCP Internal Medicine Medical Oncology; Visit Provider Internal Medicine
DX: I25.10 Atherosclerotic heart disease of native coronary artery without angina pectoris (principal); Z95.1 Presence of aortocoronary bypass graft
CPT/HCPCS: 93306; 93356

== ENCOUNTER 2023-01-31 15:36 | Outpatient (REF) | payer OTHER, SELFPAY ==
[2023-01-31 17:03] LABS: Anion Gap 14 (12-20); Blood Urea Nitrogen 27 mg/dL (9-16); Carbon Dioxide 25 mmol/L (22-29); Chloride 108 mmol/L (96-108); Estimated Glomerular Filt Rate 56; Glucose Random 117 mg/dL (60-115); Potassium 4.5 mmol/L (3.3-5.1); Sodium 142 mmol/L (135-145)
== END 2023-01-31 15:37 | disposition home or self-care (01) ==
LOC: HO.LAB 15:36
PROVIDERS: PCP Internal Medicine Medical Oncology; Visit Provider Internal Medicine
DX: R89.9 Unspecified abnormal finding in specimens from other organs, systems and tissues (principal)
CPT/HCPCS: 36415; 80048

== ENCOUNTER 2023-03-06 06:24 | Outpatient (REF) | payer OTHER, SELFPAY ==
[2023-03-06 06:33] LABS: MANUAL DIFF FLAG NO
[2023-03-06 07:07] LABS: Basophils Percent Auto 0.4 % (0-2); Eosinophils Absolute Auto 0.4 X10*3/uL (0.0-0.4); Eosinophils Percent Auto 5.3 % (0-4); Hematocrit 37.2 % (42.0-52.0); Hemoglobin 12.2 g/dl (14.0-18.0); Imm Gran Abs Auto 0.02 X10*3/uL (0.00-0.03); Imm Gran Pct Auto 0.3 % (0.0-0.4); Lymphocytes Absolute Auto 2.3 X10*3/uL (1.2-4.9); Lymphocytes Percent Auto 31.9 % (20-40); Mean Corpuscular HGB Conc 32.8 g/dl (31.0-36.0); Mean Corpuscular Hemoglobin 27.3 pg (27.0-33.0); Mean Corpuscular Volume 83.2 fL (80.0-98.0); Mean Platelet Volume 10.2 fL (9.4-12.4); Monocytes Absolute Auto 0.7 X10*3/uL (0.1-1.2); Monocytes Percent Auto 9.3 % (2-11); Neutrophils Absolute Auto 3.8 x10*3/uL (2.0-8.3); Neutrophils Percent Auto 52.8 % (45-73); Platelet Count 151 X10*3/uL (160-400); Red Blood Count 4.47 X10*6/uL (4.60-5.80); Red Cell Distribution Width 14.4 % (11.0-16.0); White Blood Count 7.2 X10*3/uL (4.8-10.8)
[2023-03-06 07:30] LABS: Alanine Aminotransferase 18 U/L (0-40); Albumin Level 4.1 g/dL (3.5-5.0); Alkaline Phosphatase 82 U/L (39-117); Anion Gap 15 (12-20); Aspartate Amino Transferase 20 U/L (5-37); Bilirubin Total 0.4 mg/dL (0.0-1.0); Blood Urea Nitrogen 26 mg/dL (9-16); Calcium 9.5 mg/dL (8.4-10.2); Carbon Dioxide 22 mmol/L (22-29); Chloride 108 mmol/L (96-108); Cholesterol 143 mg/dL; Estimated Glomerular Filt Rate 50; Glucose Fasting 115 mg/dL (60-99); HDL Cholesterol 54 mg/dL; LDL Cholesterol Calculated 76 mg/dl; Potassium 4.9 mmol/L (3.3-5.1); Sodium 140 mmol/L (135-145); Triglycerides 68 mg/dL
[2023-03-06 07:50] LABS: PSA,Total (Free>4and<10) 0.88 ng/mL (0.00-4.00)
== END 2023-03-06 06:25 | disposition home or self-care (01) ==
LOC: HO.LAB 06:24
PROVIDERS: PCP Internal Medicine Medical Oncology; Visit Provider Internal Medicine Medical Oncology
DX: E78.5 Hyperlipidemia, unspecified (principal); I10 Essential (primary) hypertension; N52.9 Male erectile dysfunction, unspecified; Z12.5 Encounter for screening for malignant neoplasm of prostate
CPT/HCPCS: 36415; 80053; 80061; 84153; 85025

== ENCOUNTER 2023-04-02 08:13 | Outpatient (AMB) | payer OTHER, SELFPAY ==
--- NOTE | 2023-04-02 08:22 | A.OFFVIS_ITS ---
Intake Vital Signs 04/02/23 08:24 Height 5 ft 9 in Weight 166 lb 3.657 oz BMI 24.5 BP 114/50 L Blood Pressure Location Lt brachial Position Sitting Pulse 59 Intake Visit Reasons: 3 month follow up Intake Note: 3 month follow up Dietetics Director Required: No Accompanied by: Self / Same As Patient Allergies No Known Allergies Allergy (Verified 04/02/23 08:25) Medication List - Last Reconciled 04/02/23 by Jason Lynn MD amlodipine 10 mg PO DAILY aspirin 81 mg PO DAILY atorvastatin 40 mg PO BEDTIME clopidogrel (Plavix) 75 mg PO DAILY hydrochlorothiazide 25 mg PO DAILY lisinopril 10 mg PO DAILY metoprolol tartrate 75 mg PO BID 90 days HPI HPI Comments 2 History of Present Illness Details Wilbert returns for follow-up. Due to anginal-type symptoms as well as abnormal stress test, he underwent cardiac catheterization. That showed ostial left main as well as right coronary artery disease leading to bypass surgery. Overall, he is doing fine. No specific complaints. No angina or shortness of breath. Blood pressure is running high in the past but seems better control now. Has dyslipidemia on statins. Remote history of smoking. Otherwise, has a history of vascular disease in lower extremities too. Overall, seems to be getting along fine. [facility] Medical History (Updated 12/25/22 @ 14:05 by Jason Lynn MD) Hearing loss Hyperlipemia Surgical History History of appendectomy History of hernia repair Hx of CABG Hx of colonoscopy Hx of vasectomy Family History Father No problems noted. Mother No problems noted. Sister No problems noted. Daughter No problems noted. Son No problems noted. Social History Alcohol intake: former Patient Tobacco Use Status: Former Tobacco user Review of Systems Const Denies weakness ENT Denies dizziness Card Denies chest pain, Denies chest pain with activity, Denies syncope, Denies rapid heart rate, Denies pedal edema, Denies edema, Denies leg edema, Denies lightheadedness, Denies palpitations, Denies dyspnea, Denies dyspnea on exertion and Denies orthopnea Resp Denies cough, Denies dyspnea and Denies dyspnea on exertion GI Denies hematochezia and Denies change in stool character Musc Denies abnormal gait, Denies muscle cramps, Denies muscle weakness, Denies numbness, Denies radiating pain into limb and Denies tingling Neuro Denies abnormal gait, Denies dizziness, Denies syncope, Denies numbness, Denies tingling and Denies weakness Endo Denies palpitations Physical Exam Vital Signs: Last Vital Signs Pulse 59 04/02/23 08:24 BP 114/50 L 04/02/23 08:24 BMI result Body Mass Index 24.5 Const General: comfortable and no acute distress Orientation/consciousness: patient oriented x3 HEENT Other: Unremarkable Head: Yes normal to inspection Neck Neck: Yes normal visual inspection Chest Chest palpation & inspection: normal inspection of the chest Resp Auscultation: clear to auscultation bilaterally Cardio Palpation: normal PMI Heart sounds: S1 normal heart sound present, S2 normal heart sound present, no gallops, no murmurs and no rubs GI Palpation (GI): Soft to palpation Back/Spine/Pelvis Other: unremarkable Skin General skin exam: no rashes or lesions noted Neuro General: patient oriented x3 Extrem General: Yes normal to inspection Psych Mental Status: mental status grossly normal Assessment & Plan Assessment & Plan (1) Atherosclerotic cardiovascular disease: Code(s): I25.10 - Atherosclerotic heart disease of [place] coronary artery without angina pectoris (2) Status post aorto-coronary artery bypass graft: Code(s): Z95.1 - Presence of aortocoronary bypass graft (3) Essential hypertension: Code(s): I10 - Essential (primary) hypertension (4) Other and unspecified hyperlipidemia: Code(s): E78.5 - Hyperlipidemia, unspecified Plan Overall, he is doing fine from cardiac. Continue aspirin indefinitely. Plavix for 1 year from time of surgery. Blood pressure seems well controlled. Continue beta-blockers/amlodipine. He states other blood pressure is also well within normal range and not high anymore. Continue high-dose statins. Lipids are also good. LDL 76 mg/dL. Prior to this, 145 mg/dL. Follow-up in 6 months. He will contact us with ongoing concerns. Coding Level of Care Code Est Pt Level 4 (12560) Diagnoses Atherosclerotic cardiovascular disease I25.10 Status post aorto-coronary artery bypass graft Z95.1 Essential hypertension I10 Other and unspecified hyperlipidemia E78.5
[2023-04-02 08:24] VITALS: BP 114/50; PULSE 59; BMI 24.5
== END 2023-04-02 08:35 | disposition home or self-care (01) ==
PROVIDERS: PCP Internal Medicine Medical Oncology; Referring Provider Internal Medicine Medical Oncology; Visit Provider Internal Medicine
DX: I25.10 Atherosclerotic heart disease of native coronary artery without angina pectoris (principal); Z95.1 Presence of aortocoronary bypass graft; I10 Essential (primary) hypertension; E78.5 Hyperlipidemia, unspecified
CPT/HCPCS: 99214

== ENCOUNTER → 2023-04-02 08:13 | Outpatient (BNVA) | payer OTHER, SELFPAY | PROVIDERS: PCP Internal Medicine Medical Oncology; Referring Provider Internal Medicine Medical Oncology; Visit Provider Internal Medicine ==

== ENCOUNTER 2023-06-14 12:07 | Outpatient (REF) | payer OTHER, SELFPAY ==
--- NOTE | ~2023-06-14 | XR_ITS ---
EXAMINATION: XR SHOULDER, RIGHT CLINICAL INFORMATION: Pain. COMPARISON: None available. TECHNIQUE: AP neutral and scapular Y views of the right shoulder are submitted. FINDINGS: The bones and soft tissues are normal. No fracture. Glenohumeral and acromioclavicular alignment is anatomic with normal joint space. No abnormal soft tissue calcifications. XR/XR shoulder RT min 2V IMPRESSION: Normal right shoulder.
== END 2023-06-14 12:08 | disposition home or self-care (01) ==
LOC: HO.HOSX 12:07
PROVIDERS: Visit Provider Orthopaedic Surgery
DX: M25.511 Pain in right shoulder (principal); M25.811 Other specified joint disorders, right shoulder
CPT/HCPCS: 73030

== ENCOUNTER 2023-06-14 14:29 | Outpatient (AMB) | payer OTHER, SELFPAY ==
--- NOTE | 2023-06-14 14:31 | A.OFFVIS_ITS ---
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 Pt states his pain started in November 2022 with no known injury. Pt denies any previous injections,surgeries, or PT. Pt states he has more pain at nighttime when sleeping on it and in the morning. He denies any weakness. He does not take any medicines for his discomfort. He has been stretching his shoulder which gave him fairly good relief. Allergies No Known Allergies Allergy (Verified 06/14/23 14:40) Medication List - Last Reconciled 06/15/23 by Eb Wylie MD amlodipine 10 mg PO DAILY aspirin 81 mg PO DAILY atorvastatin 40 mg PO BEDTIME clopidogrel (Plavix) 75 mg PO DAILY hydrochlorothiazide 25 mg PO DAILY lisinopril 10 mg PO DAILY metoprolol tartrate 75 mg PO BID 90 days PFSH Medical History Hearing loss Hyperlipemia Surgical History Hx of CABG Hx of colonoscopy History of hernia repair Hx of vasectomy History of appendectomy Family History Father No problems noted. Mother No problems noted. Sister No problems noted. Daughter No problems noted. Son No problems noted. Social History (Updated 06/14/23 @ 14:42 by Stefani Darby MA) Household Members: Spouse Housing: House Alcohol intake: current Alcohol intake frequency: a few times a month Patient Tobacco Use Status: Former Tobacco user Current occupational status: employed Current occupation: Right hand dominant Physical Exam Const Other: Well-nourished well-developed very friendly male awake alert and oriented x3 in no acute distress Extrem Other: Bilateral upper extremity examination shows good capillary refill, no skin lesions noted, normal sensation light touch Right shoulder examination shows almost full range of motion when compared to his left shoulder, 5/5 strength with supraspinatus testing, positive impingement signs, no instability Results Reviewed Results Reviewed: X-rays of the patient's right shoulder show moderate acromioclavicular joint narrowing, a type 2 acromion, no acute bony abnormalities Assessment & Plan Assessment & Plan (1) Impingement of right shoulder: Code(s): M25.811 - Other specified joint disorders, right shoulder Plan Mr. Dinero presents with intermittent right shoulder discomfort most likely due to impingement syndrome and rotator cuff tendinosis. I had a lengthy discussion with the patient regarding the treatment options. At this point the patient's symptoms are improving with activity modifications and stretching exercises. We will hold off on a cortisone injection. He will follow up with me on an as- needed basis should his symptoms not plateau at an unacceptable level over the next few months. Feel free to call me at any time should questions regarding his orthopedic management arise. Thank you very much for asking me to see this very friendly gentleman. I spent 22 minutes in reviewing the patient's records and imaging studies, seeing the patient and documenting in the medical record. Orders: Orders XR shoulder RT min 2V 06/14/23 M25.511 - Pain in right shoulder Coding Level of Care Code New Pt Level 2 (79633) Diagnoses Impingement of right shoulder M25.811
== END 2023-06-14 15:14 | disposition home or self-care (01) ==
PROVIDERS: PCP Internal Medicine Medical Oncology; Visit Provider Orthopaedic Surgery
DX: M25.811 Other specified joint disorders, right shoulder (principal)
CPT/HCPCS: 99202

== ENCOUNTER 2023-10-01 06:01 | Outpatient (REF) | payer OTHER, SELFPAY ==
[2023-10-01 06:14] LABS: MANUAL DIFF FLAG NO
[2023-10-01 07:10] LABS: Basophils Percent Auto 0.7 % (0-2); Eosinophils Absolute Auto 0.3 X10*3/uL (0.0-0.4); Eosinophils Percent Auto 5.2 % (0-4); Hematocrit 39.4 % (42.0-52.0); Hemoglobin 13.3 g/dl (14.0-18.0); Imm Gran Abs Auto 0.01 X10*3/uL (0.00-0.03); Imm Gran Pct Auto 0.2 % (0.0-0.4); Lymphocytes Absolute Auto 2.4 X10*3/uL (1.2-4.9); Lymphocytes Percent Auto 39.7 % (20-40); Mean Corpuscular HGB Conc 33.8 g/dl (31.0-36.0); Mean Corpuscular Hemoglobin 28.6 pg (27.0-33.0); Mean Corpuscular Volume 84.7 fL (80.0-98.0); Mean Platelet Volume 10.3 fL (9.4-12.4); Monocytes Absolute Auto 0.6 X10*3/uL (0.1-1.2); Monocytes Percent Auto 9.1 % (2-11); Neutrophils Absolute Auto 2.8 x10*3/uL (2.0-8.3); Neutrophils Percent Auto 45.1 % (45-73); Platelet Count 150 X10*3/uL (160-400); Red Blood Count 4.65 X10*6/uL (4.60-5.80); Red Cell Distribution Width 13.1 % (11.0-16.0); White Blood Count 6.2 X10*3/uL (4.8-10.8)
[2023-10-01 07:32] LABS: Alanine Aminotransferase 15 U/L (0-40); Albumin Level 3.9 g/dL (3.5-5.0); Alkaline Phosphatase 77 U/L (39-117); Anion Gap 11 (12-20); Aspartate Amino Transferase 18 U/L (5-37); Bilirubin Total 0.4 mg/dL (0.0-1.0); Blood Urea Nitrogen 30 mg/dL (9-16); Carbon Dioxide 26 mmol/L (22-29); Chloride 108 mmol/L (96-108); Cholesterol 139 mg/dL (<200); Estimated Glomerular Filt Rate 52; Glucose Fasting 109 mg/dL (60-99); HDL Cholesterol 49 mg/dL (>40); LDL Cholesterol Calculated 80 mg/dL (<100); Potassium 4.7 mmol/L (3.3-5.1); Sodium 140 mmol/L (135-145); Total Protein 6.7 g/dL (6.5-8.0); Triglycerides 54 mg/dL (<150)
== END 2023-10-01 06:02 | disposition home or self-care (01) ==
LOC: HO.LAB 06:01
PROVIDERS: PCP Internal Medicine Medical Oncology; Visit Provider Internal Medicine Medical Oncology
DX: Z00.00 Encounter for general adult medical examination without abnormal findings (principal); Z12.5 Encounter for screening for malignant neoplasm of prostate; E78.5 Hyperlipidemia, unspecified; N52.9 Male erectile dysfunction, unspecified; E66.3 Overweight
CPT/HCPCS: 36415; 80053; 80061; 84153; 85025

== ENCOUNTER → 2023-10-09 14:43 | Outpatient (BNVA) | payer OTHER, SELFPAY | PROVIDERS: PCP Internal Medicine Medical Oncology; Visit Provider Internal Medicine | DX: I25.10 Atherosclerotic heart disease of native coronary artery without angina pectoris (principal); I10 Essential (primary) hypertension; E78.5 Hyperlipidemia, unspecified; Z95.1 Presence of aortocoronary bypass graft; Z79.82 Long term (current) use of aspirin; Z79.899 Other long term (current) drug therapy | CPT/HCPCS: 93005 ==

== ENCOUNTER 2023-10-09 14:44 | Outpatient (AMB) | payer OTHER, SELFPAY ==
--- NOTE | 2023-10-09 14:52 | MHC.OFFVIS ---
Intake Vital Signs 10/09/23 14:55 Height 5 ft 9 in Weight 177 lb 11.081 oz BMI 26.2 BP 150/56 H Blood Pressure Location Lt brachial Position Sitting Pulse 54 Intake Visit Reasons: 6 month follow up Intake Note: 6 month follow up Rope Tier Required: No Accompanied by: Self / Same As Patient Allergies No Known Allergies Allergy (Verified 10/09/23 14:56) Medication List - Last Reconciled 10/09/23 by Jason Lynn MD amlodipine 10 mg PO DAILY aspirin 81 mg PO DAILY atorvastatin 40 mg PO BEDTIME clopidogrel (Plavix) 75 mg PO DAILY hydrochlorothiazide 25 mg PO DAILY lisinopril 10 mg PO DAILY metoprolol tartrate 75 mg PO BID 90 days HPI HPI Comments History of Present Illness Details Wilbert returns for follow-up. Due to anginal-type symptoms as well as abnormal stress test, he underwent cardiac catheterization. That showed ostial left main as well as right coronary artery disease leading to bypass surgery. From a clinical standpoint, he states he is feeling fine. No cardiac symptoms. Blood pressure still seems be on the higher side. [facility] Medical History Hearing loss Hyperlipemia Surgical History Hx of CABG Hx of colonoscopy History of hernia repair Hx of vasectomy History of appendectomy Family History Father No problems noted. Mother No problems noted. Sister No problems noted. Daughter No problems noted. Son No problems noted. Social History Household Members: Spouse Housing: House Alcohol intake: current Alcohol intake frequency: a few times a month Patient Tobacco Use Status: Former Tobacco user Current occupational status: employed Current occupation: Right hand dominant Review of Systems Const Denies weakness ENT Denies dizziness Card Denies chest pain, Denies chest pain with activity, Denies syncope, Denies rapid heart rate, Denies pedal edema, Denies edema, Denies leg edema, Denies lightheadedness, Denies palpitations, Denies dyspnea, Denies dyspnea on exertion and Denies orthopnea Resp Denies cough, Denies dyspnea and Denies dyspnea on exertion GI Denies hematochezia and Denies change in stool character Musc Denies abnormal gait, Denies muscle cramps, Denies muscle weakness, Denies numbness, Denies radiating pain into limb and Denies tingling Neuro Denies abnormal gait, Denies dizziness, Denies syncope, Denies numbness, Denies tingling and Denies weakness Endo Denies palpitations Physical Exam Vital Signs: Last Vital Signs Pulse 54 10/09/23 14:55 BP 150/56 H 10/09/23 14:55 BMI result Body Mass Index 26.2 Const General: comfortable and no acute distress Orientation/consciousness: patient oriented x3 HEENT Other: Unremarkable Head: Yes normal to inspection Neck Neck: Yes normal visual inspection Chest Chest palpation & inspection: normal inspection of the chest Resp Auscultation: clear to auscultation bilaterally Cardio Palpation: normal PMI Heart sounds: S1 normal heart sound present, S2 normal heart sound present, no gallops, no murmurs and no rubs GI Palpation (GI): Soft to palpation Back/Spine/Pelvis Other: unremarkable Skin General skin exam: no rashes or lesions noted Neuro General: patient oriented x3 Extrem General: Yes normal to inspection Psych Mental Status: mental status grossly normal Office Procedures EKG Details: EKG with sinus bradycardia at 54/Min; no significant ST-T changes and otherwise unremarkable[place] [id number], Complete Assessment & Plan Assessment & Plan (1) Atherosclerotic cardiovascular disease: Code(s): I25.10 - Atherosclerotic heart disease of [place] coronary artery without angina pectoris (2) Status post aorto-coronary artery bypass graft: Code(s): Z95.1 - Presence of aortocoronary bypass graft (3) Essential hypertension: Code(s): I10 - Essential (primary) hypertension (4) Other and unspecified hyperlipidemia: Code(s): E78.5 - Hyperlipidemia, unspecified Plan Overall, stable cardiac status. Continue long-term aspirin. Can stop Plavix. Blood pressure seems to be on higher side. He is already on beta-blockers/amlodipine. We will increase the lisinopril dose. Check BMP in a few days. Discussed about this with patient. With regard to cholesterol, seems improved but could be better. We can increase the atorvastatin to 80 mg daily. Plan discussed with patient and he understands and agrees. Medications: New lisinopril 20 mg PO DAILY 90 tabs 3RF atorvastatin 80 mg PO QPM 90 tabs 3RF Discontinued clopidogrel (Plavix) Discontinued Reason: Doctor's Order 75 mg PO DAILY 90 tabs 3RF atorvastatin Discontinued Reason: Doctor's Order 40 mg PO BEDTIME 90 tabs 3RF lisinopril Discontinued Reason: Doctor's Order 10 mg PO DAILY 90 tabs 3RF Coding Level of Care Code Est Pt Level 4 (60048) Diagnoses Atherosclerotic cardiovascular disease I25.10 Status post aorto-coronary artery bypass graft Z95.1 Essential hypertension I10 Other and unspecified hyperlipidemia E78.5 CPT Codes EKG - CPT: 78490-[id number], Complete ([id number])
[2023-10-09 14:55] VITALS: BP 150/56; PULSE 54; BMI 26.2
== END 2023-10-09 15:13 | disposition home or self-care (01) ==
PROVIDERS: PCP Internal Medicine Medical Oncology; Visit Provider Internal Medicine
DX: I25.10 Atherosclerotic heart disease of native coronary artery without angina pectoris (principal); Z95.1 Presence of aortocoronary bypass graft; I10 Essential (primary) hypertension; E78.5 Hyperlipidemia, unspecified
CPT/HCPCS: 93010; 99214

== ENCOUNTER 2023-10-30 12:45 | Outpatient (REF) | payer OTHER, SELFPAY ==
--- NOTE | ~2023-10-30 | US_ITS ---
EXAMINATION: Noninvasive assessment of the bilateral lower extremities with ARTERIAL DUPLEX and ANKLE BRACHIAL INDICES (ABIs). CLINICAL INFORMATION: Peripheral vascular disease TECHNIQUE: Duplex Doppler techniques with waveform analysis and measurement of velocities in the bilateral common femoral, profunda femoris, superficial femoral, popliteal and tibial arteries were performed. Additionally, ankle pulse volume recordings, ankle pressure measurements and ankle brachial indices were obtained of the lower extremity arterial system bilaterally. The study was performed only at rest. COMPARISON: 09/28/2022 FINDINGS: DIRECT DUPLEX DOPPLER FINDINGS: RIGHT LEG: Common femoral artery: 156 cm/s, phasicity: Triphasic. Mild calcified plaque Profunda femoris artery: 273 cm/s, phasicity: Triphasic Superficial femoral artery (proximal): 181 cm/s, phasicity: Biphasic. Moderate noncalcified plaque Superficial femoral artery (mid): 104 cm/s, phasicity: Triphasic. Mild calcified plaque Superficial femoral artery (distal): 98.4 cm/s, phasicity: Triphasic. Mild calcified plaque Popliteal artery: 71.0 cm/s, phasicity: Biphasic. Mild calcified and noncalcified plaque Posterior tibial artery: 148 cm/s, phasicity: Triphasic Peroneal artery: 52.3 cm/s, phasicity: Biphasic Anterior tibial artery: 40.0 cm/s, phasicity: Biphasic Dorsalis pedis artery: 13.7 cm/s, phasicity:Monophasic LEFT LEG: Common femoral artery: 151 cm/s, phasicity: Triphasic. Mild calcified plaque Profunda femoris artery: 219 cm/s, phasicity: Triphasic Superficial femoral artery (proximal): 98.3 cm/s, phasicity: Biphasic. Mild calcified plaque Superficial femoral artery (mid): 185 cm/s, phasicity: Biphasic. Moderate calcified plaque Superficial femoral artery (distal): 91.1 cm/s, phasicity: Triphasic. Mild calcified plaque Popliteal artery: 65.7 cm/s, phasicity: Biphasic. Mild calcified plaque Posterior tibial artery: 29.7 cm/s, phasicity: Monophasic Peroneal artery: 41.0 cm/s, phasicity: Biphasic Anterior tibial artery: 32.9 cm/s, phasicity: Biphasic Dorsalis pedis artery: 50.4 cm/s, phasicity: Biphasic ANKLE-BRACHIAL INDEX: Right: 1.05?, previously 1.06 Left: 0.79, previously 0.75 ANKLE PRESSURES: Right: PT 140, DP 114 Left: PT?104, DP?105 ANKLE PVR WAVEFORMS: Right: Abnormal Left: Abnormal US/US arterial duplex BI w/ ANTONY IMPRESSION: Right leg: Stable ankle brachial index. Elevated velocity in the proximal superficial femoral artery with noncalcified plaque consistent with mild stenosis. No significant change. Left leg: Stable ankle brachial index. Elevated velocity in the mid to superficial femoral artery with moderate atherosclerotic plaque consistent with mild stenosis. No significant change. ANTONY Reference: - >1.4 = calcified vessels - 0.9 - 1.4 = normal - no significant arterial disease - 0.7 - 0.89 = mild peripheral arterial disease - 0.51 - 0.69 = moderate peripheral arterial disease - ? 0.50 = severe peripheral arterial disease - < .30 = critical arterial disease
== END 2023-10-30 12:46 | disposition home or self-care (01) ==
LOC: HO.US 12:45
PROVIDERS: PCP Internal Medicine Medical Oncology; Visit Provider Surgery Vascular Surgery
DX: I70.213 Atherosclerosis of native arteries of extremities with intermittent claudication, bilateral legs (principal)
CPT/HCPCS: 93922; 93925

== ENCOUNTER 2023-11-08 15:21 | Outpatient (AMB) | payer OTHER, SELFPAY ==
--- NOTE | 2023-11-08 15:23 | MHC.OFFVIS ---
Intake Vital Signs 11/08/23 15:27 Height 5 ft 9 in Weight 176 lb BMI 26.0 Intake Visit Reasons: Follow Up 10/29 Arterial Ultrasound Intake Note: Patient presents for arterial follow up. Ultrasound was performed on 10/30/23. States his legs feel fine does not have any cramping or weakness. Accompanied by: Self / Same As Patient Allergies No Known Allergies Allergy (Verified 11/08/23 15:25) HPI Follow Up 10/29 Arterial Ultrasound HPI Details Very pleasant 68-year-old gentleman presents for follow-up regarding peripheral vascular disease. Continues to do fairly well. He remains very active and walks nearly a mi with no difficulty. He skis twice a week during the winter with no difficulties. Of note since his last visit he has undergone a CABG. No other complaints at the current time. He now presents for follow-up with arterial testing. [facility] Medical History Hearing loss Hyperlipemia Surgical History Hx of CABG Hx of colonoscopy History of hernia repair Hx of vasectomy History of appendectomy Family History Father No problems noted. Mother No problems noted. Sister No problems noted. Daughter No problems noted. Son No problems noted. Social History Household Members: Spouse Housing: House Alcohol intake: current Alcohol intake frequency: a few times a month Patient Tobacco Use Status: Former Tobacco user Current occupational status: employed Current occupation: Right hand dominant Review of Systems Const All systems reviewed & are unremarkable except as noted in HPI and below Reports no additional complaints ENT Reports Normal hearing present Card Denies chest pain, Denies chest pain at rest, Denies chest pain with activity and Denies pedal edema Resp Denies cough GI Denies abdominal pain Musc Denies abnormal gait, Denies muscle cramps and Denies radiating pain into limb Skin/Breast Denies skin ulcer and Denies wounds Neuro Reports Normal hearing present and Denies abnormal gait Psych Reports no additional complaints Physical Exam Vital Signs: BMI result Body Mass Index 26.0 Const General: cooperative, healthy appearing and comfortable Orientation/consciousness: oriented to person, oriented to place and oriented to time HEENT Head: Yes normal to inspection Neck Neck: Yes normal visual inspection Carotids: no bruits Chest Chest palpation & inspection: normal inspection of the chest Resp Effort & Inspection: normal respiratory effort and able to speak in complete sentences Auscultation: clear to auscultation bilaterally, no crackles, no rales, no rhonchi and no wheezes Cardio Rate: regular rate Rhythm: regular rhythm Heart sounds: S1 normal heart sound present and S2 normal heart sound present Bruits: no carotid bruits Peripheral pulses: Peripheral pulses 2+ throughout GI Inspection: Yes normal to inspection Skin Wounds: no wounds Hair: normal Neuro General: oriented to person, oriented to place and oriented to time Cranial nerves: Yes CN's II-XII intact bilaterally and Yes Normal hearing present Cognition (Neuro): normal cognition Motor exam (neuro): 5/5 motor strength present throughout Extrem Other: venous exam: No significant superficial varicosities or spider telangiectasias, minimal edema General: No clubbing, No cyanosis and No edema Psych Appearance: grossly normal Mental Status: mental status grossly normal Speech and movement: Normal speech and movement present Results Reviewed Results Reviewed: Noninvasive arterial testing dated 10/30/2023 demonstrates ANTONY on the right of 1.05 and on the left of 0.79. Written report and images were reviewed. Assessment & Plan Assessment & Plan (1) PAD (peripheral artery disease): Comment: 11/24/2020 - atherectomy and plasty of right SFA Code(s): I73.9 - Peripheral vascular disease, unspecified Plan: In short patient has stable claudication. I did review the pathophysiology of peripheral vascular disease with the patient. In addition we did discuss routine conservative measures including a healthy diet and the importance of exercise and ambulation. We did discuss risk factor modification. The patient will continue to to follow-up with surveillance follow-up in approximately 1 year. Thank you for allowing us to participate in this patient's care. If there are any questions or concerns please do not hesitate to contact us. Orders: Orders US arterial duplex LE BI 1 Year I73.9 - Peripheral vascular disease, unspecified Coding Level of Care Code Est Pt Level 4 (30913) Diagnoses PAD (peripheral artery disease) I73.9
[2023-11-08 15:27] VITALS: BMI 26.0
== END 2023-11-08 15:43 | disposition home or self-care (01) ==
PROVIDERS: PCP Internal Medicine Medical Oncology; Visit Provider Surgery Vascular Surgery
DX: I73.9 Peripheral vascular disease, unspecified (principal); Z95.1 Presence of aortocoronary bypass graft; Z98.62 Peripheral vascular angioplasty status
CPT/HCPCS: 99213

== ENCOUNTER 2023-11-08 15:21 | Outpatient (REF) | payer OTHER, SELFPAY ==
[2023-11-08 17:11] LABS: Anion Gap 9 (12-20); Blood Urea Nitrogen 25 mg/dL (9-16); Calcium 9.5 mg/dL (8.4-10.2); Carbon Dioxide 28 mmol/L (22-29); Chloride 106 mmol/L (96-108); Estimated Glomerular Filt Rate > 60; Glucose Random 94 mg/dL (60-115); Potassium 4.5 mmol/L (3.3-5.1); Sodium 138 mmol/L (135-145)
== END 2023-11-08 15:22 | disposition home or self-care (01) ==
LOC: HO.LAB 15:21
PROVIDERS: Absent Provider Internal Medicine; PCP Internal Medicine Medical Oncology; Visit Provider Surgery Vascular Surgery
DX: I10 Essential (primary) hypertension (principal); I73.9 Peripheral vascular disease, unspecified
CPT/HCPCS: 36415; 80048

== ENCOUNTER 2024-01-10 06:00 | Outpatient (REF) | payer OTHER, SELFPAY ==
[2024-01-10 06:19] LABS: MANUAL DIFF FLAG NO
[2024-01-10 07:34] LABS: Basophils Percent Auto 0.6 % (0-2); Eosinophils Absolute Auto 0.3 X10*3/uL (0.0-0.4); Eosinophils Percent Auto 4.7 % (0-4); Hematocrit 37.9 % (42.0-52.0); Hemoglobin 12.8 g/dl (14.0-18.0); Imm Gran Abs Auto 0.03 X10*3/uL (0.00-0.03); Imm Gran Pct Auto 0.4 % (0.0-0.4); Lymphocytes Absolute Auto 2.5 X10*3/uL (1.2-4.9); Lymphocytes Percent Auto 35.1 % (20-40); Mean Corpuscular HGB Conc 33.8 g/dl (31.0-36.0); Mean Corpuscular Hemoglobin 28.9 pg (27.0-33.0); Mean Corpuscular Volume 85.6 fL (80.0-98.0); Mean Platelet Volume 10.5 fL (9.4-12.4); Monocytes Absolute Auto 0.7 X10*3/uL (0.1-1.2); Monocytes Percent Auto 9.6 % (2-11); Neutrophils Absolute Auto 3.6 x10*3/uL (2.0-8.3); Neutrophils Percent Auto 49.6 % (45-73); Platelet Count 149 X10*3/uL (160-400); Red Blood Count 4.43 X10*6/uL (4.60-5.80); Red Cell Distribution Width 13.2 % (11.0-16.0); White Blood Count 7.2 X10*3/uL (4.8-10.8)
[2024-01-10 08:01] LABS: Alanine Aminotransferase 16 U/L (0-40); Albumin Level 3.9 g/dL (3.5-5.0); Alkaline Phosphatase 72 U/L (39-117); Anion Gap 12 (12-20); Aspartate Amino Transferase 17 U/L (5-37); Bilirubin Total 0.4 mg/dL (0.0-1.0); Blood Urea Nitrogen 29 mg/dL (9-16); Calcium 9.5 mg/dL (8.4-10.2); Carbon Dioxide 26 mmol/L (22-29); Chloride 107 mmol/L (96-108); Cholesterol 141 mg/dL (<200); Estimated Glomerular Filt Rate 52; Glucose Fasting 108 mg/dL (60-99); HDL Cholesterol 48 mg/dL (>40); LDL Cholesterol Calculated 81 mg/dL (<100); Potassium 4.7 mmol/L (3.3-5.1); Sodium 140 mmol/L (135-145); Total Protein 6.7 g/dL (6.5-8.0); Triglycerides 61 mg/dL (<150)
== END 2024-01-10 06:01 | disposition home or self-care (01) ==
LOC: HO.LAB 06:00
PROVIDERS: PCP Internal Medicine Medical Oncology; Visit Provider Internal Medicine Medical Oncology
DX: I10 Essential (primary) hypertension (principal); E78.5 Hyperlipidemia, unspecified; E66.3 Overweight
CPT/HCPCS: 36415; 80053; 80061; 85025

== ENCOUNTER 2024-04-22 08:27 | Outpatient (REF) | payer OTHER, SELFPAY ==
--- NOTE | ~2024-04-22 | US_ITS ---
EXAMINATION: Noninvasive assessment of the bilateral lower extremities with ARTERIAL DUPLEX and ANKLE BRACHIAL INDICES (ABIs). CLINICAL INFORMATION: Peripheral vascular disease TECHNIQUE: Duplex Doppler techniques with waveform analysis and measurement of velocities in the bilateral common femoral, profunda femoris, superficial femoral, popliteal and tibial arteries were performed. Additionally, ankle pulse volume recordings, ankle pressure measurements and ankle brachial indices were obtained of the lower extremity arterial system bilaterally. The study was performed only at rest. COMPARISON: 10/30/2023 FINDINGS: DIRECT DUPLEX DOPPLER FINDINGS: RIGHT LEG: Common femoral artery: 99.4 cm/s, phasicity: Biphasic. Stable calcified plaque Profunda femoris artery: 239 cm/s, phasicity: Biphasic Superficial femoral artery (proximal): 308 cm/s, phasicity: Biphasic. Stable noncalcified plaque Superficial femoral artery (mid): 111 cm/s, phasicity: Biphasic Superficial femoral artery (distal): 84.7 cm/s, phasicity: Biphasic Popliteal artery: 59.1 cm/s, phasicity: Biphasic Posterior tibial artery: 62.3 cm/s, phasicity: Biphasic Peroneal artery: 41.9 cm/s, phasicity: Biphasic Anterior tibial artery: 29.5 cm/s, phasicity: Biphasic Dorsalis pedis artery: 48.0 cm/s, phasicity:Biphasic LEFT LEG: Common femoral artery: 176 cm/s, phasicity: Biphasic. Stable calcified plaque Profunda femoris artery: 218 cm/s, phasicity: Biphasic Superficial femoral artery (proximal): 101 cm/s, phasicity: Biphasic Superficial femoral artery (mid): 249 cm/s, phasicity: Biphasic. Moderate calcified plaque Superficial femoral artery (distal): 48.0 cm/s, phasicity: Biphasic Popliteal artery: 64.7 cm/s, phasicity: Biphasic Posterior tibial artery: 18.1 cm/s, phasicity: Biphasic Peroneal artery: 31.8 cm/s, phasicity: Biphasic Anterior tibial artery: 32.2 cm/s, phasicity: Biphasic Dorsalis pedis artery: 36.1 cm/s, phasicity: Biphasic ANKLE-BRACHIAL INDEX: Right: 0.93, previously 1.05 Left: 0.71, previously 0.79 ANKLE PRESSURES: Right: PT 157, DP 124 Left: PT 119, DP 115 ANKLE PVR WAVEFORMS: Right: Abnormal Left: Abnormal US/US arterial duplex BI w/ ANTONY IMPRESSION: Right leg: Relatively stable ankle-brachial index. Elevated velocity in the proximal superficial femoral artery with noncalcified plaque consistent with moderate stenosis Left leg: Relatively stable ankle-brachial index. Elevated velocity in the mid superficial femoral artery with calcified plaque consistent with moderate stenosis ANTONY Reference: - >1.4 = calcified vessels - 0.9 - 1.4 = normal - no significant arterial disease - 0.7 - 0.89 = mild peripheral arterial disease - 0.51 - 0.69 = moderate peripheral arterial disease - d 0.50 = severe peripheral arterial disease - < .30 = critical arterial disease Electronically signed by: Cristobal Choi MD 04/25/2024 01:02 PM EDT RP
== END 2024-04-22 08:28 | disposition home or self-care (01) ==
LOC: HO.US 08:27
PROVIDERS: PCP Internal Medicine Medical Oncology; Visit Provider Surgery Vascular Surgery
DX: I73.9 Peripheral vascular disease, unspecified (principal)
CPT/HCPCS: 93922; 93925

== ENCOUNTER 2024-05-01 14:52 | Outpatient (AMB) | payer OTHER, SELFPAY ==
[2024-05-01 15:00] VITALS: BMI 26.0
--- NOTE | 2024-05-01 15:00 | MHC.OFFVIS ---
Vital Signs 05/01/24 15:00 Height 5 ft 9 in Weight 176 lb BMI 26.0 Intake Visit Reasons: follow up s/p ART US 04/22/24 Intake Note: Arterial US follow up 04/22/24 for LE pain and cramping. Pt said he is unsure if caused by vascular or something else, has been seen by ortho and has appt w/ spine doctor. Was last seen by us in November 2023 and ordered a 1 yr follow up. Pt states left LE is worse than the Right LE Accompanied by: Self / Same As Patient Allergies No Known Allergies Allergy (Verified 05/01/24 15:02) HPI HPI follow up s/p ART US 04/22/24: Details: Very pleasant 69-year-old gentleman presents for follow-up regarding lower extremity pain. Actually had a recent surveillance ultrasound and reported recurrent pain. We sent him for repeat ultrasounds of the arterial lower extremity network. Upon further discussion with him he describes it more so as hip pain. It has been persistent for some time and has been progressing over the last few years. He is able to ambulate a mi or 2 with no significant difficulty. He now presents for surveillance with noninvasive arterial testing [facility] Medical History Hearing loss Hyperlipemia Surgical History Hx of CABG Hx of colonoscopy History of hernia repair Hx of vasectomy History of appendectomy Family History Father No problems noted. Mother No problems noted. Sister No problems noted. Daughter No problems noted. Son No problems noted. Social History Household Members: Spouse Housing: House Alcohol intake: current Alcohol intake frequency: a few times a month Patient Tobacco Use Status: Former Tobacco user Current occupational status: employed Current occupation: Right hand dominant Review of Systems Const All systems reviewed & are unremarkable except as noted in HPI and below Reports no additional complaints ENT Reports Normal hearing present Card Denies chest pain, Denies chest pain at rest, Denies chest pain with activity and Denies pedal edema Resp Denies cough GI Denies abdominal pain Musc Denies abnormal gait, Denies muscle cramps and Denies radiating pain into limb Skin/Breast Denies skin ulcer and Denies wounds Neuro Reports Normal hearing present and Denies abnormal gait Psych Reports no additional complaints Physical Exam Vital Signs: BMI result Body Mass Index 26.0 Const General: cooperative, healthy appearing and comfortable Orientation/consciousness: oriented to person, oriented to place and oriented to time HEENT Head: Yes normal to inspection Neck Neck: Yes normal visual inspection Carotids: no bruits Chest Chest palpation & inspection: normal inspection of the chest Resp Effort & Inspection: normal respiratory effort and able to speak in complete sentences Auscultation: clear to auscultation bilaterally, no crackles, no rales, no rhonchi and no wheezes Cardio Other: Right lower extremity palpable DP left side signals Rate: regular rate Rhythm: regular rhythm Heart sounds: S1 normal heart sound present and S2 normal heart sound present Bruits: no carotid bruits Peripheral pulses: Peripheral pulses 2+ throughout GI Inspection: Yes normal to inspection Skin Wounds: no wounds Hair: normal Neuro General: oriented to person, oriented to place and oriented to time Cranial nerves: Yes CN's II-XII intact bilaterally and Yes Normal hearing present Cognition (Neuro): normal cognition Motor exam (neuro): 5/5 motor strength present throughout Extrem Other: venous exam: No significant superficial varicosities or spider telangiectasias, minimal edema General: No clubbing, No cyanosis and No edema Psych Appearance: grossly normal Mental Status: mental status grossly normal Speech and movement: Normal speech and movement present Results Reviewed Results Reviewed: Noninvasive arterial testing dated 04/22/2024 demonstrates ANTONY on the right of 0.93 and on the left of 0.71. Written report and images were reviewed Assessment & Plan Assessment & Plan (1) PAD (peripheral artery disease): Comment: 11/24/2020 - atherectomy and plasty of right SFA Code(s): I73.9 - Peripheral vascular disease, unspecified Category: Medical Plan: In short I do think patient has stable PA D. It appears to be more musculoskeletal in nature and may be relating to his hip pain. Should pain persist may recommend orthopedic or pain management evaluation. He will keep his annual surveillance follow-up with us. Thank you for allowing us to assist in his care. If there are any questions or concerns please do not hesitate to contact us. Please note a longitudinal relationship has been created with the patient and we have been following and surveillance this chronic condition. Coding Level of Care Code Est Pt Level 4 (05970) Complex EM visit Add On G2211 Diagnoses PAD (peripheral artery disease) I73.9
== END 2024-05-01 15:29 | disposition home or self-care (01) ==
LOC: HO.HVS 14:52
PROVIDERS: PCP Internal Medicine Medical Oncology; Visit Provider Surgery Vascular Surgery
DX: I73.9 Peripheral vascular disease, unspecified (principal)
CPT/HCPCS: 99214

== ENCOUNTER → 2024-05-01 14:52 | Outpatient (BNVA) | payer OTHER, SELFPAY | PROVIDERS: PCP Internal Medicine Medical Oncology; Visit Provider Surgery Vascular Surgery ==

== ENCOUNTER 2024-07-09 06:16 | Outpatient (REF) | payer OTHER, SELFPAY ==
[2024-07-09 06:29] LABS: MANUAL DIFF FLAG NO
[2024-07-09 07:22] LABS: Basophils Percent Auto 0.5 % (0-2); Eosinophils Absolute Auto 0.4 X10*3/uL (0.0-0.4); Eosinophils Percent Auto 6.8 % (0-4); Hematocrit 38.3 % (42.0-52.0); Hemoglobin 12.7 g/dl (14.0-18.0); Imm Gran Abs Auto 0.01 X10*3/uL (0.00-0.03); Imm Gran Pct Auto 0.2 % (0.0-0.4); Lymphocytes Absolute Auto 2.3 X10*3/uL (1.2-4.9); Lymphocytes Percent Auto 36.1 % (20-40); Mean Corpuscular HGB Conc 33.2 g/dl (31.0-36.0); Mean Corpuscular Hemoglobin 28.2 pg (27.0-33.0); Mean Corpuscular Volume 85.1 fL (80.0-98.0); Mean Platelet Volume 10.5 fL (9.4-12.4); Monocytes Absolute Auto 0.7 X10*3/uL (0.1-1.2); Monocytes Percent Auto 10.5 % (2-11); Neutrophils Absolute Auto 2.9 x10*3/uL (2.0-8.3); Neutrophils Percent Auto 45.9 % (45-73); Platelet Count 152 X10*3/uL (160-400); Red Cell Distribution Width 13.2 % (11.0-16.0); White Blood Count 6.3 X10*3/uL (4.8-10.8)
[2024-07-09 07:47] LABS: Alanine Aminotransferase 44 U/L (0-40); Alkaline Phosphatase 92 U/L (39-117); Anion Gap 11 (12-20); Aspartate Amino Transferase 40 U/L (5-37); Bilirubin Total 0.6 mg/dL (0.0-1.0); Blood Urea Nitrogen 33 mg/dL (9-16); Calcium 9.5 mg/dL (8.4-10.2); Carbon Dioxide 25 mmol/L (22-29); Chloride 109 mmol/L (96-108); Cholesterol 130 mg/dL (<200); Estimated Glomerular Filt Rate 42; Glucose Fasting 121 mg/dL (60-99); HDL Cholesterol 47 mg/dL (>40); LDL Cholesterol Calculated 69 mg/dL (<100); Potassium 4.7 mmol/L (3.3-5.1); Sodium 140 mmol/L (135-145); Total Protein 6.8 g/dL (6.5-8.0); Triglycerides 73 mg/dL (<150)
[2024-07-09 08:07] LABS: Prostate Specific Antigen 0.94 ng/mL (<0.05-4.0)
== END 2024-07-09 06:17 | disposition home or self-care (01) ==
LOC: HO.LAB 06:16
PROVIDERS: PCP Internal Medicine Medical Oncology; Visit Provider Internal Medicine Medical Oncology
DX: Z00.00 Encounter for general adult medical examination without abnormal findings (principal); Z12.5 Encounter for screening for malignant neoplasm of prostate
CPT/HCPCS: 36415; 80053; 80061; 84153; 85025

== ENCOUNTER 2024-08-01 06:17 | Outpatient (REF) | payer OTHER, SELFPAY ==
[2024-08-01 08:27] LABS: Alanine Aminotransferase 66 U/L (0-40); Albumin Level 3.9 g/dL (3.5-5.0); Alkaline Phosphatase 91 U/L (39-117); Anion Gap 10 (12-20); Aspartate Amino Transferase 44 U/L (5-37); Bilirubin Total 0.5 mg/dL (0.0-1.0); Blood Urea Nitrogen 27 mg/dL (9-16); Calcium 8.7 mg/dL (8.4-10.2); Carbon Dioxide 26 mmol/L (22-29); Chloride 108 mmol/L (96-108); Estimated Glomerular Filt Rate 57; Glucose Fasting 118 mg/dL (60-99); Potassium 5.1 mmol/L (3.3-5.1); Sodium 139 mmol/L (135-145); Total Protein 6.6 g/dL (6.5-8.0); Uric Acid 7.4 mg/dL (3.4-7.0)
== END 2024-08-01 06:18 | disposition home or self-care (01) ==
LOC: HO.LAB 06:17
PROVIDERS: PCP Internal Medicine Medical Oncology; Visit Provider Internal Medicine Medical Oncology
DX: I11.0 Hypertensive heart disease with heart failure (principal); E66.9 Obesity, unspecified; R74.8 Abnormal levels of other serum enzymes; E79.0 Hyperuricemia without signs of inflammatory arthritis and tophaceous disease
CPT/HCPCS: 36415; 80053; 84550

== ENCOUNTER 2024-10-09 12:36 | Outpatient (AMB) | payer OTHER, SELFPAY ==
--- NOTE | 2024-10-09 12:51 | MHC.OFFVIS ---
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 Due to anginal-type symptoms as well as abnormal stress test, he underwent cardiac catheterization. That showed ostial left main as well as right coronary artery disease leading to bypass surgery. He states that he feels very good. No complaints whatsoever. Extremely active including skiing all winter with no issues. [facility] Medical History Hearing loss Hyperlipemia Surgical History Hx of CABG Hx of colonoscopy History of hernia repair Hx of vasectomy History of appendectomy Family History Father No problems noted. Mother No problems noted. Sister No problems noted. Daughter No problems noted. Son No problems noted. Social History Household Members: Spouse Housing: House Alcohol intake: current Alcohol intake frequency: a few times a month Patient Tobacco Use Status: Former Tobacco user Current occupational status: employed Current occupation: Right hand dominant Review of Systems Const Denies chills, Denies fatigue, Denies fever(s), Denies frequent falls, Denies weakness, Denies weight gain and Denies weight loss ENT Denies dizziness Card Denies chest pain, Denies leg edema, Denies lightheadedness, Denies palpitations, Denies dyspnea and Denies dyspnea on exertion Resp Denies cough, Denies dyspnea and Denies dyspnea on exertion GI Denies hematochezia Musc Denies abnormal gait, Denies muscle weakness, Denies numbness, Denies radiating pain into limb and Denies tingling Neuro Denies abnormal gait, Denies dizziness, Denies frequent falls, Denies numbness, Denies tingling and Denies weakness Endo Denies fatigue and Denies palpitations Physical Exam Vital Signs: Last Vital Signs Pulse 68 10/09/24 12:53 BP 124/54 L 10/09/24 12:53 BMI result Body Mass Index 27.5 Const General: comfortable and no acute distress Orientation/consciousness: patient oriented x3 HEENT Other: Unremarkable Head: Yes normal to inspection Neck Neck: Yes normal visual inspection Chest Chest palpation & inspection: normal inspection of the chest Resp Auscultation: clear to auscultation bilaterally Cardio Palpation: normal PMI Heart sounds: S1 normal heart sound present, S2 normal heart sound present, no gallops, no murmurs and no rubs GI Palpation (GI): Soft to palpation Back/Spine/Pelvis Other: unremarkable Skin General skin exam: no rashes or lesions noted Neuro General: patient oriented x3 Extrem General: Yes normal to inspection Psych Mental Status: mental status grossly normal Office Procedures EKG Details: EKG with underlying sinus rhythm at 68/Min; sinus arrhythmias; nonspecific ST-T changes; [place]. [id number], Complete Assessment & Plan Assessment & Plan (1) Atherosclerotic cardiovascular disease: Code(s): I25.10 - Atherosclerotic heart disease of [place] coronary artery without angina pectoris Category: Medical (2) Status post aorto-coronary artery bypass graft: Code(s): Z95.1 - Presence of aortocoronary bypass graft Category: Surgical (3) Essential hypertension: Code(s): I10 - Essential (primary) hypertension Category: Medical (4) Other and unspecified hyperlipidemia: Code(s): E78.5 - Hyperlipidemia, unspecified Category: Medical Plan Stable cardiac status post CABG. Continue aspirin. Blood pressure stable on the current regimen including amlodipine, lisinopril, hydrochlorothiazide. For lipids, on statins. Last LDL 69 mg/dL with triglycerides of 73 mg/dL. We will follow-up in one year. In the interim, he will call with concerns. Coding Level of Care Code Est Pt Level 4 (38861) Complex EM visit Add On G2211 Diagnoses Atherosclerotic cardiovascular disease I25.10 Status post aorto-coronary artery bypass graft Z95.1 Essential hypertension I10 Other and unspecified hyperlipidemia E78.5 CPT Codes EKG - CPT: [id number], Complete ([id number])
[2024-10-09 12:53] VITALS: BP 124/54; PULSE 68; BMI 27.5
--- OUTSIDE RECORDS SUMMARY | 2024-10-09 15:08 | XMS_ITS ---
Author Organization Daniele Perez III, MD Address [address] [place] [address] Care Team Providers Care Orthotist Name Role Phone Daniele Perez Primary Care Provider Allergies Allergen (clinical drug [...] Date Provider Diagnosis Daniele Perez III, MD [address] [place] [address] [place] [address] 09/30/2024 Daniele Perez HTN (hypertension) I 10 ; Coronary artery disease involving coronary bypass graft of [place] heart without angina pectoris I25.810 ; Hyperlipidemia, [...] artery disease involving coronary bypass graft of [place] heart without angina pectoris (ICD-10 - I25.810) His stress test was quite positive, so he went occurred. Nares artery catheterization and then to coronary artery bypass surgery at [facility]. He recovered well without incident. He is [...] Up: 3 Months, Reason: OV Provider Name:Daniele Perez, 01/02/2025 09:00:00 AM, [address] [place] [address] [address], [place], [address], Provider Name:Daniele Perez, 03/17/2025 02:00:00 PM, [address] [place] [address] [address], [place], [id number], Progress Notes * YOUNG FLOYD CDOB:1955 (69 yo M)Acc No.[id number]:09/30/2024 Progress Notes Patient:?YOUNG FLOYD Provider:?Daniele Perez MD :1955???Age:69 Y???Sex:Male Luca e:09/30/2024 Address:[address] [place] [address], [id number] Subjective: * Chief Complaints: * ???HyperlipidemiaHearing los sHypertensionPeripheral arterial diseaseHyperuricemiaCoronary artery disease * HPI: ???COVID-19 Screening:?Questions?Have you had any new onset fever, chills, cough, congestion, sore throat, shortness of breath, muscle aches??No ???:?The patient, Young, is a 69-year-old male who [...] a branch back in the fall. * ROS:?General/Constitutional:?pain?Mild claudication.?Chills?denies.?Fatigue?admits.?Fever?denies.?ENT:?Decreased hearing?in both ears.?Respiratory:?Cough?denies.?Cardiovascular:?Chest pain with exertion?denies.?Dyspnea on exertion?denies.?Shortness of breath?denies.?Gastrointestinal:?Constipation?occasional.?Decreased appetite?denies.?Diarrhea?denies.?Heartburn?denies.?Nausea?denies.?Rectal bleeding?denies.?Vomiting?denies.?Hematology:?bruising?denies.?petechiae?denies.?Swollen glands?none have been noted.?Genitourinary:?Frequent urination?twice a night.?Musculoskeletal:?Muscle aches?denies.?Painful joints?denies.?Sciatica?denies.?Weakness?denies.?Skin:?Itching?denies.?Rash?denies.?Skin lesion(s)?denies.?Neurologic:?Difficulty speaking?denies.?Dizziness?denies.?Headache?denies.?Low back pain?denies.?Psychiatric:?Depressed mood?denies.? * Medical History:? * Surgical History:?appendecto my vasectomy bilateral inguinal hernia repair 03/2015colonoscopy, negative, Dr. Daniele Alfaro, [facility]. 2019Angioplasty and atherectomy right superficial femoral artery oronary artery bypass grafting x3 11/2012Triple Bi-pass Surgery 11/17/2022No history * Hospitalization/Major Diagno stic Procedure:?No history * Family History:?Father: dece ased 62 yrs, diagnosed with DM, CVD.?Mother: 49 yrs.?Son(s): alive.?Siblings: alive.?1 sister(s) . 1 son(s) , 1 daughter(s) - healthy. .? His father of coronary artery disease and diabetes. His mother of complications of HOSPITAL MANAGER surgery for benign disease. His sister has had a hip replacement after fracture and of complications from that. His sister had cryptogenic hepatic cirrhosis. He has a son and a daughter, Pavan and Nia, who are healthy and well. * Social History:?Tobacco Use:?Tobacco Use/Smoking?Patient is a?former smoker ?How long has it been since you last smoked??> 10 years ?Additional Findings: Tobacco Non-User?Ex-cigarette smoker ???He has been to Anahi for 35 years. They have 2 healthy children. 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 He has no toxic exposures. * Medications:?TakingAspirin 8 1 81 MG Tablet Delayed Release 1 tablet [...] reviewed and reconciled with the patient * Allergies:?No Known Drug All ergyno[Allergies Verified] Objective: * Vitals:?Ht: 68.5, Wt:185, BM I:27.72, BP:140/58, HR:64, Temp:98.1, Ht-cm: 173.99, Wt-k.91. * ???Past Orders: Lab:[facility] * Collection Date 08/01/2024 07/09/2024 01/10/2024 Collection Time 06:28 AM 06:28 AM 06:18 AM Order Date 08/01/2024 07/09/2024 01/10/2024 Sodium 139 (Ref Range: 135-145 mmol/L) 140 (Ref Range: 135-145 mmol/L) 140 (Ref Range: 135-145 mmol/L) Bilirubin Total 0.5 (Ref Range: 0.0-1.0 mg/dL) 0.6 (Ref Range: 0.0-1.0 mg/dL) 0.4 (Ref Range: 0.0-1.0 mg/dL) Aspartate Amino Transferase 44?H (Ref Range: 5-37 U/L) 40?H (Ref Range: 5-37 U/L) 17 (Ref Range: 5-37 U/L) Alanine Aminotransferase 66?H (Ref Range: 0-40 U/L) 44?H (Ref Range: 0-40 U/L) 16 (Ref Range: [...] mmol/L) Chloride 108 (Ref Range: 96-108 mmol/L) 109?H (Ref Range: 96-108 mmol/L) 107 (Ref Range: 96-108 mmol/L) Carbon Dioxide 26 (Ref Range: 22-29 mmol/L) 25 (Ref Range: 22-29 mmol/L) 26 (Ref Range: 22-29 mmol/L) Anion Gap 10?L (Ref Range: 12-20) 11?L (Ref Range: 12-20) 12 (Ref Range: 12-20) Blood Urea Nitrogen 27?H (Ref Range: 9-16 mg/dL) 33?H (Ref Range: 9-16 mg/dL) 29?H (Ref Range: 9-16 mg/dL) Creatinine 1.25 (Ref Range: 0.5-1.4 mg/dL) 1.63?H (Ref Range: 0.5-1.4 mg/dL) 1.35 (Ref Range: 0.5-1.4 mg/dL) Estimated Glomerular Filt Rate 57 42 52 Glucose Fasting 118?H (Ref Range: 60-99 mg/dL) 121?H (Ref Range: 60-99 mg/dL) 108?H (Ref Range: 60-99 mg/dL) Calcium 8.7 (Ref Range: 8.4-10.2 mg/dL) 9.5 (Ref Range: 8.4-10.2 mg/dL) 9.5 (Ref Range: 8.4-10.2 mg/dL) * Lab:Uric Acid * Collection Date 08/01/2024 06/16/2021 Collection Time 06:28 AM 06:22 AM Order Date 08/01/2024 06/16/2021 Uric Acid 7.4?H (Ref Range: 3.4-7.0 mg/dL) 7.3?H (Ref Range: 3.4-7.0 mg/dL) * Lab:Complete Blood Count Aut o Diff * Collection Date 07/09/2024 01/10/2024 10/01/2023 Collection Time 06:28 AM 06:18 AM 06:12 AM Order Date 07/09/2024 01/10/2024 10/01/2023 White Blood Count 6.3 (Ref Range: 4.8-10.8 X10*3/uL) 7.2 (Ref Range: 4.8-10.8 X10*3/uL) 6.2 (Ref Range: 4.8-10.8 X10*3/uL) Red Blood Count 4.50?L (Ref Range: 4.60-5.80 X10*6/uL) 4.43?L (Ref Range: 4.60-5.80 X10*6/uL) 4.65 (Ref Range: 4.60-5.80 X10*6/uL) Hemoglobin 12.7?L (Ref Range: 14.0-18.0 g/dl) 12.8?L (Ref Range: 14.0-18.0 g/dl) 13.3?L (Ref Range: 14.0-18.0 g/dl) Hematocrit 38.3?L (Ref Range: 42.0-52.0 %) 37.9?L (Ref Range: 42.0-52.0 %) 39.4?L (Ref Range: 42.0-52.0 %) Mean Corpuscular Volume [...] 13.1 (Ref Range: 11.0-16.0 %) Platelet Count 152?L (Ref Range: 160-400 X10*3/uL) 149?L (Ref Range: 160-400 X10*3/uL) 150?L (Ref Range: 160-400 X10*3/uL) Mean Platelet Volume [...] (Ref Range: 2-11 %) Eosinophils Percent Auto 6.8?H (Ref Range: 0-4 %) 4.7?H (Ref Range: 0-4 %) 5.2?H (Ref Range: 0-4 %) Basophils Percent Auto [...] 1.70 (Ref Range: <0.05-4.0 ng/mL) * Examination: ???General Examination: ?GENERAL APPEARANCE:?pleasant, well nourished, well developed, in no acute distress, calm and relaxed, overweight, man.?HEAD:?atraumatic, normocephalic.?EYES:?eomi, perrla, anicteric, conjugate.?EARS:?normal.?NOSE:?septum intact.?ORAL CAVITY:?normal, unremarkable.?NECK/THYROID:?no jugular venous distention, no carotid bruit, thyroid normal.?LYMPH NODES:?no enlarged lymph nodes,spleen normal.?SKIN:?no suspicious lesions, anicteric.?HEART:?no clicks, gallops, murmurs, or rubs, regular rhythm, S1, S2 normal, no s3, or vascular bruits.?LUNGS:?, diminished breath sounds throughout, no wheezes, rales, rhonchi, good air movement.?BREASTS:??no masses palpable bilaterally.?ABDOMEN:?bowel sounds normal, no ascites, no organomegaly, no mass, overweight, Bilateral inguinal hernia scars.?RECTAL EXAM:?not examined.?MUSCULOSKELETAL:?extremities unremarkable, no clubbing, cyanosis or edema.?PERIPHERAL PULSES:?normal.?NEUROLOGIC:?alert and oriented, cranial nerves 2-12 grossly intact, deep tendon reflexes 2+ symmetrical, motor strength normal upper and lower extremities, sensory exam intact.?PSYCH:?alert, oriented.? Assessment: * Assessment: 1.?Coronary artery disease i nvolving coronary bypass graft of [place] heart without angina pectoris - I25.810 (Primary)???Notes :His stress test was quite positive, so he went occurred. Nares artery catheterization and then to coronary artery bypass surgery at [facility]. He recovered well without incident. He is no longer in atrial fibrillation. His medications were reviewed with him. His echocardiogram showed good cardiac function. Aggressive risk reduction is in place.???2.?HTN (hypertension) - I10???Notes :His systolic bloood pressure is 140 with a new dose of lisinopril.? He will be brought back to the office in the near future after aggressive sodium restriction and weight loss.? His medication will be titrated.???3.?Hyperlipidemia, unspecified hyperlipidemia type - E78.5???Notes :His lipids are stable and controlled. He is compliant with medication and has no side effects.His total cholesterol is currently 130. No changes in his regimen are needed.???4.?Overweight (BMI 25.0-29.9) - E66.3???Notes :He has lost 9 pounds since his last visit for unclear reasons. He says his appetite is fair. An investigation of the abdominal discomfort is underway.???5.?Former smoker - Z87.891???Notes :He is highly motivated not to smoke. We discussed strategies for prevention of relapse in times of stress and illness.???6.?Sensorineural hearing loss (SNHL) of left ear with unrestricted hearing of right ear - H90.42???Notes :He has been referred to ENT in the past and had hearing tests. If this symptom worsens. He will return.???7.?Peripheral arterial occlusive disease - I77.9???Notes :He has no claudication but decreased pulses in the left leg. This will be observed along with vascular surgery.??? Plan: * Treatment: 2.?Hyperlipidemia, unspecifi ed hyperlipidemia type?LAB: PROFILE, FASTING (COMPREHENSIVE METABOLIC) ?LAB: CBC WITH AUTO DIFF ?LAB: Lipid Panel 3.?Overweight (BMI 25.0-29.9 )?LAB: PROFILE, FASTING (COMPREHENSIVE METABOLIC) ?LAB: CBC WITH AUTO DIFF ?LAB: Lipid Panel * Procedure Codes:? * Preventive Medicine:? ??Counseling:?Care goal follow-up plan:?Counseling for abnormal BMI given?Yes ?Above Normal BMI Follow-up?Dietary management education, guidance, and counseling ?Smoking/Tobacco Use?Patient counseled on the dangers of tobacco use and urged to quit.?10/28/2024 * Follow Up:?3 Months (Reason: OV) * Images: * Sign off status: Completed true * Provider:?Daniele Perez MD Date:?09/07 Generated for Kishore covarrubias/Valentin/Mary Louitting on:?10/09/2024 03:07 PM EST History and Physical Notes * HPI [...]
--- OUTSIDE RECORDS SUMMARY | 2024-10-09 15:08 | XMS_ITS ---
Author Organization Daniele Perez III, MD Address [address] [address] Care Team Providers Care Headmaster/Mistress Name Role Phone Daniele Perez Primary Care [...] Date Provider Diagnosis Daniele Perez III, MD [address] [place] [address] [place] [address] 08/04/2024 Daniele Perez HTN (hypertension) I 10 [...] blood pressure and review medications Provider Name:Daniele Perez, 01/02/2025 09:00:00 AM, [address] [place] [address] [address], [place], [address], Provider Name:Daniele Perez, 03/17/2025 02:00:00 PM, [address] [place] [address] [address], [place], [address], Progress Notes * YOUNG FLOYD CDOB:1955 (69 yo M)Acc No.[id number]:08/04/2024 Progress Notes Patient:?YOUNG FLOYD Provider:?Daniele Perez MD :1955???Age:69 Y???Sex:Male Luca e:08/04/2024 Address:[address] [place] [address], [id number] Subjective: * Chief Complaints: * ???Right groin painHyperlipi demiaHearing lossHypertensionPeripheral arterial diseaseHyperuricemiaRight shoulder painCoronary artery disease * HPI: ???COVID-19 Screening:?Questions?Have you had any new onset fever, chills, cough, congestion, sore throat, shortness of breath, muscle aches??No ???:?The 69-year-old male patient reported a pain in [...] two. Blood Sugar Level is 118. * ROS:?General/Constitutional:?Admits?pain,?Right shoulder with weightbearing or use or elevation, otherwise only normal aches and pains.?Chills?denies.?Fatigue?admits.?Fever?denies.?ENT:?Decreased hearing?mild.?Respiratory:?Cough?denies.?Cardiovascular:?Chest pain with exertion?denies.?Dyspnea on exertion?denies.?Shortness of breath?denies.?Gastrointestinal:?Constipation?occasional.?Decreased appetite?denies.?Diarrhea?denies.?Heartburn?denies.?Nausea?denies.?Rectal bleeding?denies.?Vomiting?denies.?Hematology:?bruising?denies.?petechiae?denies.?Swollen glands?none have been noted.?Genitourinary:?Frequent urination?twice a night.?Musculoskeletal:?Muscle aches?Right groin.?Painful joints?denies.?Sciatica?denies.?Weakness?denies.?Skin:?Itching?denies.?Rash?denies.?Skin lesion(s)?denies.?Neurologic:?Difficulty speaking?denies.?Dizziness?denies.?Headache?denies.?Low back pain?denies.?Psychiatric:?Depressed mood?denies.? * Medical History:? * Surgical History:?appendecto my vasectomy bilateral inguinal hernia repair 03/2015colonoscopy, negative, Dr. Daniele Alfaro, [facility]. 2019Angioplasty and atherectomy right superficial femoral artery oronary artery bypass grafting x3 11/2012Triple Bi-pass Surgery 11/17/2022No history * Hospitalization/Major Diagno stic Procedure:?No history * Family History:?Father: dece ased 62 yrs, diagnosed with CVD, DM.?Mother: 49 yrs.?Son(s): alive.?Siblings: alive.?1 sister(s) . 1 son(s) , 1 daughter(s) - healthy. .? His father of coronary artery disease and diabetes. His mother of complications of REGISTERED PUBLIC HEALTH NURSE surgery for benign disease. His sister has [...] 2 healthy children. 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 He has [...] All ergyno[Allergies Verified] Objective: * Vitals:?Ht: 68.5, Wt:191, BM I:28.62, BP:145/68, HR:65, Temp:97.0, Wt-k.64. * ???Past Orders: Lab:Complete Blood Count Aut o Diff [...] mg/dL) 49 (Ref Range: >40 mg/dL) * Lab:[facility] * Collection Date 08/01/2024 [...] mg/dL) 7.3?H (Ref Range: 3.4-7.0 mg/dL) * Examination: ???General Examination: ?GENERAL APPEARANCE:?pleasant, well nourished, well developed, in no acute distress, calm and relaxed, overweight, man.?HEAD:?atraumatic, normocephalic.?EYES:?eomi, perrla, anicteric, conjugate.?EARS:?Normal anatomy with bilateral hearing loss..?NOSE:?septum intact.?ORAL CAVITY:?normal, unremarkable.?NECK/THYROID:?no jugular venous distention, no carotid bruit, thyroid normal.?LYMPH NODES:?no enlarged lymph nodes,spleen normal.?SKIN:?no suspicious lesions, anicteric.?HEART:?no clicks, gallops, murmurs, or rubs, regular rhythm, S1, S2 normal, no s3, or vascular bruits.?LUNGS:?clear to auscultation .?BREASTS:??no masses palpable bilaterally.?ABDOMEN:?bowel sounds normal, no ascites, no organomegaly, no mass.Inguinal hernia scars, no current hernia noted. Groin pain seems to be an attachment of a muscle to the pelvis.?RECTAL EXAM:?not examined.?MUSCULOSKELETAL:?extremities unremarkable, no clubbing, cyanosis or edema.?PERIPHERAL PULSES:?normal.?NEUROLOGIC:?alert and oriented, cranial nerves 2-12 grossly intact, deep tendon reflexes 2+ symmetrical, motor strength normal upper and lower extremities, sensory exam intact.?PSYCH:?alert, oriented.? Assessment: * Assessment: 1.?HTN (hypertension) - I10 (Primary)???Notes :His blood pressure today is within normal limits. I recommended sodium restriction, but no change in his regimen was necessary. He wants to control his blood pressure and reduce it with lifestyle modification. We discussed this issue at length.???2.?Right groin pain - R10.31???Notes :This seems to be muscular in origin and not a hernia.? Will be observed carefully.? He will use heat and acetaminophen.???3.?Former smoker - Z87.891???Notes :He is highly motivated not to smoke. We discussed strategies for prevention of relapse in times of stress and illness.???4.?Non-recurrent bilateral inguinal hernia without obstruction or gangrene - K40.20???Notes :The hernias have been repaired and are not returning.???5.?Sensorineural hearing loss (SNHL) of left ear with unrestricted hearing of right ear - H90.42???Notes :He has been referred to ENT in the past and had hearing tests. If this symptom worsens. He will return.???6.?Hyperlipidemia, unspecified hyperlipidemia type - E78.5???Notes :His lipids are stable and controlled. He is compliant with medication and has no side effects.His total cholesterol is currently 130.? No changes in his regimen are needed.???7.?Overweight (BMI 25.0-29.9) - E66.3???Notes :His body mass index is 28.6. We discussed lifestyle modifications are way to reduce cardiac risk factors. I recommended a diet low in sodium and calories combined with regular activity.???8.?Peripheral arterial occlusive disease - I77.9???Notes :He has no claudication but decreased pulses in the left leg. This will be observed along with vascular surgery.???9.?Tendinosis of right shoulder - M67.813??? Plan: * Treatment: * Procedure Codes:? * Preventive Medicine:? ??Counseling:?Care goal follow-up plan:?Counseling for abnormal BMI given?Yes ?Above Normal BMI Follow-up?Dietary management education, guidance, and counseling, Dietary needs education ?Smoking/Tobacco Use?Patient counseled on the dangers of tobacco use and urged to quit.?08/04/2024 * Follow Up:?2 Weeks, In two w eeks (Reason: ov BP check no tests, Check blood pressure and review medications) * Images: * Sign off status: Completed true * Provider:?Daniele Perez MD Date:?07/08 Generated for Kishore covarrubias/Valentin/Mary Louitting on:?10/09/2024 03:08 PM EST History and Physical Notes * [...]
--- OUTSIDE RECORDS SUMMARY | 2024-10-09 15:08 | XMS_ITS ---
Author Organization Daniele Perez III, MD Address [address] 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 He has lost substantial weight in his uric acid level was elevated. Abdominal imaging has been ordered. Vital Signs Temperature 97.4 degrees Fahrenheit 08/19/19 25 Blood pressure systolic 150 mm Hg 08/19/19 25 Blood pressure diastolic 60 mm Hg 025 Heart Rate 61 /min 08/19/2024 Height 68.5 in 08/19/2024 Weight 184 lbs 08/19/2024 BMI 27.57 kg/m2 08/19/2024 Encounters Encounter Location Date Provider Diagnosis Daniele Perez III, MD [address] [place] [address] [place] [address] 08/19/2024 Daniele Perez HTN (hypertension) I 10 ; Right lower quadrant abdominal pain R10.31 ; Hyperlipidemia, unspecified hyperlipidemia type E78.5 ; Former smoker Z87.891 ; Overweight (BMI 25.0-29.9) E66.3 ; Sensorineural hearing loss (SNHL) of left ear with unrestricted hearing of right ear H90.42 ; Peripheral arterial occlusive disease I77.9 ; Coronary artery disease involving coronary bypass graft of [place] heart without angina pectoris I25.810 and Hyperuricemia [...] artery disease involving coronary bypass graft of [place] heart without angina pectoris (ICD-10 - I25.810) His stress test was quite positive, so he went occurred. Nares artery catheterization and then to coronary artery bypass surgery at [facility]. He recovered well without incident. He is [...] check-up and blood pressure monitoring Provider Name:Daniele Perez, 01/02/2025 09:00:00 AM, [address] [facility] [place], [place], [address], Provider Name:Daniele Perez, 03/17/2025 02:00:00 PM, [address] [facility] [place], [place], [address], Progress Notes * YOUNG FLOYD CDOB:1955 (69 yo M)Acc No.[id number]:08/19/2024 Progress Notes Patient:?YOUNG FLOYD Provider:?Daniele Perez MD :1955???Age:69 Y???Sex:Male Luca e:08/19/2024 Address:[address] [place] [address] [id number] Subjective: * Chief Complaints: * ???Right groin painHypertens ionHearing loss * HPI: ???COVID-19 Screening:?Questions?Have you had any new onset fever, chills, cough, congestion, sore throat, shortness of breath, muscle aches??No ???:?The patient, a 69-year-old male, reported intermittent pain [...] from 191 lbs to 180 lbs. * ROS:?General/Constitutional:?Admits?pain,?50% improved right groin pain.?Chills?denies.?Fatigue?admits.?Fever?denies.?Admits?Weight loss,?About 10 pounds.?ENT:?Decreased hearing?mild.?Respiratory:?Cough?denies.?Cardiovascular:?Chest pain with exertion?denies.?Dyspnea on exertion?denies.?Shortness of breath?denies.?Gastrointestinal:?Constipation?occasional.?Decreased appetite?that is associated with weight loss.?Diarrhea?denies.?Heartburn?occasional.?Nausea?denies.?Rectal bleeding?denies.?Vomiting?denies.?Hematology:?bruising?denies.?petechiae?denies.?Swollen glands?none have been noted.?Genitourinary:?Frequent urination?twice a night.?Musculoskeletal:?Muscle aches?denies.?Painful joints?denies.?Sciatica?denies.?Weakness?denies.?Skin:?Itching?denies.?Rash?denies.?Skin lesion(s)?denies.?Neurologic:?Difficulty speaking?denies.?Dizziness?denies.?Headache?denies.?Low back pain?denies.?Psychiatric:?Depressed mood?denies.? * Medical History:? * Surgical History:?appendecto my vasectomy bilateral inguinal hernia repair 03/2015colonoscopy, negative, Dr. Daniele Alfaro, [facility]. 2019Angioplasty and atherectomy right superficial femoral artery oronary artery bypass grafting x3 11/2012Triple Bi-pass Surgery 11/17/2022No history * Hospitalization/Major Diagno stic Procedure:?No history * Family History:?Father: dece ased 62 yrs, diagnosed with DM, CVD.?Mother: 49 yrs.?Son(s): alive.?Siblings: alive.?1 sister(s) . 1 son(s) , 1 daughter(s) - healthy. .? His father of coronary artery disease and diabetes. His mother of complications of ROV[place] SIZER surgery for benign disease. His sister has [...] healthy children. 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 He [...] All ergyno[Allergies Verified] Objective: * Vitals:?Ht: 68.5, Wt:184, BM I:27.57, BP:150/60, HR:61, Temp:97.4, Wt-k.46. * ???Past Orders: Lab:[facility]. [facility] * Collection Date 08/01/2024 07/09/2024 [...] no organomegaly, no mass, , No overt hernias.?RECTAL EXAM:?not examined.?MUSCULOSKELETAL:?extremities unremarkable, no clubbing, cyanosis or edema.?PERIPHERAL PULSES:?normal.?NEUROLOGIC:?alert and oriented, cranial nerves 2-12 grossly intact, deep tendon reflexes 2+ symmetrical, motor strength normal upper and lower extremities, sensory exam intact.?PSYCH:?alert, oriented.? Assessment: * Assessment: 1.?Right lower quadrant abdo farhat pain - R10.31 (Primary)???Notes :He says the pain has improved but is still present.? He has lost substantial weight in his uric acid level was elevated.? Abdominal imaging has been ordered.???2.?HTN (hypertension) - I10???Notes :His blood pressure has been borderline in the past.? It is elevated today at 150/90 despite lying down and resting for a prolonged period of time.? I have increased his lisinopril from 10 mg daily to 20 mg daily with a followup visit in 21 days.???3.?Hyperlipidemia, unspecified hyperlipidemia type - E78.5???Notes :His lipids are stable and controlled. He is compliant with medication and has no side effects.His total cholesterol is currently 130. No changes in his regimen are needed.???4.?Former smoker - Z87.891???Notes :He is highly motivated not to smoke. We discussed strategies for prevention of relapse in times of stress and illness.???5.?Overweight (BMI 25.0-29.9) - E66.3???Notes :He has lost 9 pounds since his last visit for unclear reasons.? He says his appetite is fair.? An investigation of the abdominal discomfort is underway.???6.?Sensorineural hearing loss (SNHL) of left ear with unrestricted hearing of right ear - H90.42???Notes :He has been referred to ENT in the past and had hearing tests. If this symptom worsens. He will return.???7.?Peripheral arterial occlusive disease - I77.9???Notes :He has no claudication but decreased pulses in the left leg. This will be observed along with vascular surgery.???8.?Coronary artery disease involving coronary bypass graft of [place] heart without angina pectoris - I25.810???Notes :His stress test was quite positive, so he went occurred. Nares artery catheterization and then to coronary artery bypass surgery at [facility]. He recovered well without incident. He is no longer in atrial fibrillation. His medications were reviewed with him. His echocardiogram showed good cardiac function. Aggressive risk reduction is in place.???9.?Hyperuricemia - E79.0???Notes :His uric acid level has been 7.3, and then 7.4.? He has no history of gout.? I have suggested he see a dietitian but he has declined.? I discussed with him the risks of hyperuricemia.? I made him aware of the existence of allopurinol.? I told him if he ever has an attack of gout we should begin him on treatment.? He agreed with this but does not want to be treated now.??? Plan: * Treatment: 2.?HTN (hypertension)? Continue Aspirin 81 Tablet Delayed Release, 81 MG, 1 tablet, Orally, Once a day;?Continue Metoprolol Tartrate Tablet, 75 MG, Oral;?Continue Atorvastatin Calcium Tablet, 40 MG, TAKE 1 TABLET BY MOUTH AT BEDTIME, Oral;?Continue hydroCHLOROthiazide Tablet, 25 MG, Oral;?Continue amLODIPine Besylate Tablet, 10 MG, Oral;?Start Metoprolol Succinate ER Tablet Extended Release 24 Hour, 50 MG, 1 tablet, Orally, Once a day, 30 days, 30, Refills 11;?Start Lisinopril Tablet, 20 MG, 1 tablet, Orally, Once a day, 30 days, 30, Refills 11.?? * Procedure Codes:? * Preventive Medicine:? ??Counseling:?Care goal follow-up plan:?Counseling for abnormal BMI given?Yes ?Above Normal BMI Follow-up?Dietary needs education, Exercise promotion: strength training ?Smoking/Tobacco Use?Patient counseled on the dangers of tobacco use and urged to quit.?08/19/2024 * Follow Up:?6 Weeks, four to six weeks (Reason: ov bp check, Routine check-up and blood pressure monitoring) * Images: * Sign off status: Completed true * Provider:?Daniele Perez MD Date:?08/06 Generated for Kishore covarrubias/Valentin/Brad on:?10/09/2024 03:08 PM EST History and Physical [...]
--- OUTSIDE RECORDS SUMMARY | 2024-10-09 15:09 | XMS_ITS | Data Portability ---
Author Organization [facility], [facility] Address [address] [place] [address] Assessment Encounter Date Assessment Date Assessment LastModified by Organization Details LastModified Time 12/04/2023 12/04/2023 Nature the diagnosis was discussed with the patient today. At this time symptoms are most consistent with impingement and AC joint arthropathy. Discussed multiple treatment options both surgical and nonsurgical. Discussed role of anti-inflammatorie s physical therapy cortisone injection as well as shoulder arthroscopy. Patient at this time would like to go forward with a course of physical therapy. If no significant improvement will call back for discussion of possible surgical intervention versus injection therapy. All questions were answered to patient's satisfaction. Follow-up as symptoms dictate. [email or web address] Not available 12/05/2023 06:44:33 04/24/2024 04/24/2024 Patient seen und er general supervision of Dr. Vuong who was available but who did not see the patient. HPI: 68-year-old male seen today regarding bilateral leg weakness and fatigue. Patient denies any real pain in this regard but reports when he walks a certain distance he starts to feel fatigue which she describes in the area of the hips and buttocks extending down the legs. Patient reports that he is able to take breaks in this improves. Also reports is able to walk a grocery store for longer periods without the symptoms occurring. Patient denies any falls or trauma. Has been seen in the past with which point trochanteric bursitis was discussed. Patient reports that this continues to worsen, has been involved in physical therapy without significant relief or alleviation. Patient denies history of difficulty with his low back. Denies numbness or tingling bilateral lower extremities. Examination: 68-year-old male no acute distress alert and oriented. On examination of bilateral hips no ecchymosis or erythema or warmth noted, full range of motion appreciated. No tenderness to palpation about the bilateral trochanteric bursa noted. On examination of low back no ecchymosis or erythema or warmth noted. No significant tenderness to palpation. Negative seated straight leg raise bilaterally. Bilateral lower extremities neurovascularly intact. X-rays ordered, obtained and reviewed at [facility] 2 views of the lumbar spine revealed diffuse degenerative change, no evidence of spondylosis or retrolisthesis noted. Impression: Question spinal stenosis Plan: At this time given patient's symptoms question whether this may be the etiology of his difficulty. Patient will be referred to [facility] for further evaluation in this regard. If it is felt to be more hip oriented patient will come back for possible injections although I am unable to elicit much in terms of hip symptoms today. Follow-up ju [facility] speech recognition java grails developer software was used to create portions of this document. An attempt at proofreading has been made to minimize errors. Please call for corrections. [email or web address] Not available 04/24/2024 15:41:58 Plan of Treatment Reminders Order Date Submit Date Provider Last Modified By Organization Details Last Modified Time Details Appointments None record ed. Lab None record ed. Referral pain manage ment referr al - PSSP- eval ?spina l stenos is 2023 024 michael [facility], [address] [place] [address], [address], 4 07:58:57 physic al therap ist referr al - End range stretc hingRo tator cuff and perisc apular streng thenin g Home exerci se progra m 2023 024 [email or web address] [facility] ([facility]), [address], [place], [address], 4 06:39:24 Procedures None record ed. Surgeries None record ed. Imaging XR, lumbar spine, 2 view 2023 024 michael [facility], [address], [address], [place], [address], 4 07:58:58 XR, hip + pelvis , bilate ral, 3 or 4 view 2023 024 [email or web address] Not available 4 07:50:52 MRI, should er, w/o contra st 2023 024 [email or web address] [facility] ([facility]), [address], [place], [address], 13:17:37 XR, should er, 2 or more view - rm 220 RT shldr 2023 024 [email or web address] Not available 13:17:37 Medication Orders Diclo Gel 1 % topica l kit 2023 024 [facility][id number], [address] [facility], [place], [place], [id number], 17:16:59 Patient TargetsNo targets recorded. Patient Instructions Encounter Date Encounter Id Patient Instructions Last Modified By Organization Details Last Modified Time 10/30/2023 [id number] iliotibial band syndrome: exercises [email or web address] Not available 10/30/2023 17:15:38 Reason for Referral Physical Therapist Referral for Impingement syndrome of right shoulder region End range stretchingRotator cuff and periscapular strengthening Home exercise program Referring Physician: Pasha Miranda, Orthopedic Surgery, [id number] Encounter Date: 12/04/2023 Pain Management Referral for Low back pain eval ?spinal stenosis PSSP- eval ?spinal stenosis Referring Physician: Julio Vásquez, Orthopedic Surgery, Encounter Date: 04/24/2024 Results Created Date Observation Date Name Description Value Unit Range Abnormal Flag Note LastModifiedBy Organization Detail LastModifiedTime 11/06/1911/05/2023 MRI, boby evaristo, w/o contr ast [facility] Access ion Number : [id number] Frank t Name: Bar Wilbert Chuy pierce Record Number : [id number] Date of : 1954 Date of Exam: 2023 Referr janel Pradhan carson: Jimmy Ayon [address] [place] [address] Exam: MR Should er (C-) CPT 66269 - Right Room Descri ption: [place] GE Pion 3T Should er MRI right Clinic al Histor y: Pain Findin gs: Mild acromi oclavi cular osteoa rthrit is. Mild thicke rochelle of the coraco acromi al ligame nt. Narrow ed medial and latera l outlet s. Small subacr omial/ subdel toid bursit is. Mild supras pinatu s and infras pinatu s tendin opathy . Superi mposed small, low-gr elijah partia l intras ubstan ce versus bursal surfac e tear within latera l outlet fibers at the conflu ence of the supras pinatu s and infras pinatu s tendon s. The teres minor tendon is intact . The subsca pulari s tendon is intact . The long head of the biceps tendon is intact . Mild glenoh umeral osteoa rthrit is with small osteop hytes. Impres keara: Supras pinatu s and infras pinatu s tendin opathy with superi mposed small, low-gr elijah partia l tear Mild acromi oclavi cular osteoa rthrit is. Small subacr omial/ subdel toid bursit is. Mild glenoh umeral osteoa rthrit is with small osteop hytes. Electr onical ly Signed By: Kati bhatt [facility] ([facility]) [address], [place], [address], 11/07/2023 07:23:16 04/24/20 24 04/24/2024 XR, lumba r spine , 2 view http:/ [email or web address] ?Encry pted=s hAaTro YD8dLq bEUv6g %2BXZw aYqtaq 0bqfl% 2Fg9IQ a4ajBk vP9nXo QUaueC m3YtLR FvZlgJ JJ8mAn HZtai3 0t7532 AC0Kqa nuBV6G jKiQtr MwF INTERFACE [facility] [address], [place], [address], 04/24/2024 14:49:13 04/24/20 24 04/24/2024 XR, lumba r spine , 2 view http:/ [email or web address] ?Encry pted=s hAaTro YD8dLq bEUv6g %2BXZw aYqtaq 0bqfl% 2Fg9IQ a4ajBk vP9nXo QUaueC m3YtLR FvZlgJ JJ8mAn HZtai3 0h9593 AC0Kqa nuBV6G jKiQtr MwF INTERFACE [facility] [address], [place], [address], 04/24/2024 14:49:15 Result Notes None recorded. Problems Name Problem SNOMED Code Status Onset Date Resolution Date Notes Provider Name and Address Organization Details Recorded Time Pain of right shoulder joint 5093336867497 9100 Active 2023 [place], [place] - [facility] 4 13:44:05 Derangement of right shoulder joint 7525411904702 9105 Active 2023 [place], [place] - [facility] 4 14:02:15 Problem Notes None recorded. Procedures Surgical History None recorded. Imaging Results Imaging Date Name Status LastModified by Organiz ation Details LastModified Time 11/05/2023 MRI, shoulder, w/o contrast completed [facility] ([facility]) [address], [place], [address], 11/07/2023 07:23:16 04/24/2024 XR, lumbar spine, 2 view completed INTERFACE [facility] [address], [place], [address], 04/24/2024 14:49:13 04/24/2024 XR, lumbar spine, 2 view completed [facility] [address], [place], [address], 04/24/2024 14:49:15 Procedure Notes None recorded. Medical Equipment None Reported. Allergies No known drug allergies Medications Name Sig Start Date Stop Date Status Note LastModified by Organization Details LastModified Time furosemide 40 mg tablet TAKE 1 TABLET BY MOUTH TWO TIMES A DAY 10/29 completed Not Available Not Available Not Available atorvastati n 40 mg tablet TAKE 1 TABLET BY MOUTH AT BEDTIME active Not Available Not Available No t Available atorvastati n 80 mg tablet TAKE 1 TABLET BY MOUTH EVERY EVENING active Not Available Not Available No t Available amiodarone 200 mg tablet TAKE 2 TABLETS BY MOUTH TWO TIMES A DAY THROUGH 11/26/22. THEN STARTING 11/27/22 TAKE 1 TABLET TWO TIMES A DAY UNTIL FINISHED ON 12/25/2210/29 completed Not Available Not Available Not Available lisinopril 20 mg tablet TAKE 1 TABLET BY MOUTH DAILY active Not Available Not Available No t Available isosorbide mononitrate ER 30 mg tablet,exte nded release 24 hr TAKE 1 TABLET BY MOUTH DAILY 10/29 completed Not Available Not Available Not Available clopidogrel 75 mg tablet TAKE 1 TABLET BY MOUTH DAILY active Not Available Not Available No t Available amlodipine 5 mg tablet TAKE 1 TABLET BY MOUTH DAILY 10/29 completed Not Available Not Available Not Available amlodipine 10 mg tablet TAKE 1 TABLET BY MOUTH DAILY active Not Available Not Available No t Available lisinopril 10 mg tablet TAKE 1 TABLET BY MOUTH DAILY active Not Available Not Available No t Available hydrochloro thiazide 25 mg tablet TAKE 1 TABLET BY MOUTH DAILY active Not Available Not Available No t Available Asprin Ec Low Dose active Not Available Not Available Not Available diclofenac 1 % topical gel APPLY SMALL AMOUNT TO AREA THREE TIMES DAILY NEEDED FOR PAIN active Not Available Not Available No t Available metoprolol tartrate 75 mg tablet TAKE 1 TABLET BY MOUTH TWICE DAILY active Not Available Not Available No t Available Diclo Gel 1 % topical kit Apply small amount to area tid prn pain 2023 active Not Available Not Available Not Avai lable Vitals Date Recorded Body height Heart rate Body mass index (BMI) Body weight Provider Name and Address Organization Details Last Updated DateTime 10/26/2023 175.26 cm 5 /min 25.1 kg/m2 05751.7 g JD BOWERS [facility] 10/26/2023 13:42:39 Date Recorded Body height Body mass index (BMI) Body weight Provider Name and Address Organization Details Last Updated DateTime 10/30/2023 175.26 cm 25.1 kg/m2 52776.7 g AILEEN WELSH [facility] 10/30/2023 16:36:51 Date Recorded Body height Provider Name an d Address Organization Details Last Updated DateTime 12/04/2023 175.26 cm WILMA LEUNG [facility] 12/04/2023 15:48:19 Date Recorded Body height Body mass index (BMI) Body weight Provider Name and Address Organization Details Last Updated DateTime 04/24/2024 175.26 cm 25.8 kg/m2 14959.66 g ROBLES CADEN [facility] 04/24/2024 14:15:48 Social History None recorded. Functional Status None recorded. Mental Status None recorded. Family History Nothing Reported. Medical History Condition Response Allergies/Hayfever N Coronary Artery Disease N Anxiety/Depression N Emphysema N Thyroid Problems N COPD N Pacemaker N Kidney/Bladder Problems N Anemia N Vascular Disease N Heart Attack (IN) N Gastrointestinal Disease N Diabetes N Autoimmune disease N Bleeding Disorder N Orthotics N Seizures/Epilepsy N Arthritis N Blood Clot N AIDS/HIV N Congestive Heart Failure (CHF) N Acid Reflux (GERD) N Cancer N Stroke N Asthma N Peripheral Vascular Disease N Sleep Apnea N Hepatitis N Heart Disease Y Rheumatoid Arthritis N Pulmonary Embolism N Arrhythmia N Fibromyalgia N Hypertension Y Osteoporosis N Past Encounters Encounter ID Performer Location Encounter Start Date Encounter Closed Date Diagnosis/Indication Diagnosis SNOMED-CT Code Diagnosis ICD10 Code Diagnosis Note [id number] MD Marlen Mcdowell [address] [place] [address] 10/26/2023 13:30:29 11/15/2023 13:17:37 Pain of right shoulder joint 2146406674 1055903 M25.511 Derangemen t of right shoulder joint 8087900297 9203900 M24.125 [id number] YAMIL Lopez [address] [place] [address] 10/30/2023 16:31:02 11/19/2023 07:50:52 Hip pain 39365475 M25.559 Trochanter ic bursitis of left hip 4055792387 82039 M70.62 Trochanter ic bursitis of right hip 7317878426 74322 M70.61 [id number] YAMIL Morales [address] [place] [address] 12/04/2023 15:33:41 12/25/2023 12:30:26 Impingement syndrome of right shoulder region 2160501646 81048 M75.41 [id number] YAMIL Stewart [address] [place] [address] 04/24/2024 14:06:40 05/06/2024 07:58:57 Low back pain 624240843 M54.50 Health Concerns Section Related Observation LastModified by Organization Detai ls LastModified Time None Recorded Concern Status LastModified by Organization Details LastModified Time None Recorded Advance Directives Directive None Recorded Payers Encounter Date Sequence Insurance Name Policy Number Policy Kerr Covered Member ID Kerr Member ID Guarantor Name 10/26/2023 1 [employer] [facility] [id number] Wilbert Rivera Soltys [id number] Wilbert Soltys 10/30/2023 1 [employer] [id number] Wilbert Rivera Soltys [id number] Wilbert Soltys 12/04/2023 1 [employer] [id number] Wilbert Rivera Soltys [id number] Wilbert Soltys 04/24/2024 1 [employer] [facility] [id number] Wilbert Rivera Soltys [id number] Wilbert Dinero Notes Date Note Type Note Provider Name and Address Organization Details Recorded Time 10/26/2023 text/html She presents tod daphne for evaluation of his right shoulder. 5-year-old right-hand dominant gentleman who reports an acute injury to his right shoulder. History providedPSH and ROS has been reviewed, updated, and signed by me and is located in the patient's chart.On physical examination well-appearing older gentleman acute distress alert and oriented ? ? 3 . Pleasant affect. Cervix spine range of motion today is restricted at terminal ranges without radicular signs or symptoms listed.Right shoulderLeft shoulderROM full, rotator cuff strength 5/5 including supraspinatus, infraspinatus, subscapularis, teres minor. Deltoid is intact including anterior middle and posterior. Good Muscle bulk and strength without atrophy. No evidence of instability of the shoulder. Negative impingement signs. Negative AC joint tenderness. Negative Speed's, Negative O'briens, Negative Bharath. Axillary nerve function intactHEENT is unremarkable without carotid bruits or JVD.Heart regular rate and rhythm without murmurs rubs or gallops.Abdomen soft nontender nondistended positive bowel sounds.Lungs are clear bilaterally without rales rhonchi or wheezes.Patient is neurovascularly intact in both upper and lower extremities.No evidence for significant varicosities or active DVT at this time.Skin is intact to light touch and normal deep tendon reflexes.X-RAY REPORT: X-rays were ordered, obtained and reviewed today at [facility], 4 views obtained right shoulder Jimmy Ayon MD [address] [place] [address] [address], [place], [address], [facility] 10/26/2023 14:31:35 10/30/2023 text/html I am seeing the patient today under the supervision of Dr. Dotson who was available but who did not see the patient.HPI: Patient is a 68-year-old male presents today for evaluation of bilateral hip pain. Has been dealing with symptoms over the past several years with worsening over the ski season during the winter.. Much more bothersome at night when sleeping on that side. Pain is predominantly lateral. No anterior groin pain. No low back pain, numbness, tingling, or radicular symptoms. No treatment modalities to date.PAST MEDICAL/SURGICAL HISTORYPast medical history is reviewed per intake sheet.PHYSICAL FINDINGSOn physical examination, the patient is well appearing and in no apparent distress, alert and oriented x3. Gait is symmetric.Bilateral hip reveals the skin to be intact, normal musculature, tenderness on palpation over the greater trochanter. No pain with range of motion of the hip, has full range of motion, no crepitus noted with range of motion. No significant pain with straight leg raise.X-rays were ordered, obtained and reviewed at [facility]: AP and lateral of the Bilateral hip demonstrates a well maintained joint space in zone 1, 2, and 3. No cam lesion, pincer lesion, crossover sign. No evidence of AVN or acute fracture.ASSESSMENTSy mptomatic trochanteric bursitis Bilateral hip.KO reviewed the findings with the patient, discussed different treatment options. Conservative measures were discussed at length including but not limited to physical therapy, bracing, anti-inflammatories and injection therapies.. Discussed the role of physical therapy for symptom relief. Patient declined and a home exercise program was given instead. Provided the patient a prescription for Voltaren gel. Will use this over the next few weeks to see if it will decrease the inflammation in the hip. If the patient were to continue to have difficulty he may contact the office for bilateral trochanteric bursal injections.The patient understands and agrees with the plan. They know to call if they have any further questions or concerns regarding their symptoms, or to follow up sooner if needed. Pavan Avalos PA-C [address], [place], [address], [facility] 10/30/2023 20:06:56 12/04/2023 text/html I am seeing the patient today under the supervision of {{ Dr Moore#}} who was available but who did not see the patient. Patient comes in today for recheck of right shoulder pain. Previously was seen by Dr. Ayon about a month ago at which time had a injury with pain discomfort over the lateral brachium of the right shoulder, concerns over possible rotator cuff tear therefore MRI was obtained and available for review today. Patient reports that he has been doing ice anti-inflammatory modalities and some activity modification and has seen some improvement in the pain, still has difficulty with overhead motions and reaching behind his back. No new injury. Pasha Miranda PA-C [address], [place], [address], [facility] 12/05/2023 06:44:47
--- OUTSIDE RECORDS SUMMARY | 2024-10-09 15:09 | XMS_ITS | Patient Health Record ---
Author Organization Daniele Perez III, MD Address [address] [place] [address] Care Team Providers Care Carton Maker Name Role Phone Daniele Perez Primary Care Provider Allergies Allergen (clinical drug ingredient) Drug/Non Drug Allergy documented on EMR Reaction Allergy Type Onset Date Status No Known Drug Allergy Unknown Drug Allergy Active Results Component Value Reference Range Notes URINE DIP STICK Reviewed date:03/12/2024 02:12:35 PM Interpretation: Performing Lab: Notes/Report: SG 1.020 1.005 - 1.025 pH 5.0 5.0 - 9.0 ALEJANDRO Negative Negative - NIT Negative Negative - PRO 15 Negative - Trace GLU Negative Negative - KET Negative Negative - UBG 0.2 0.1 - 1.8 CAMPOS Negative 0.2 - 1.3 BLD Negative Negative - US arterial duplex BI w/ ANTONY Reviewed date:01/11/2024 03:53:37 PM Interpretation: Performing Lab: Notes/Report: [address] [address] Ultrasound Report Signed Patient: Young Dinero MR#: [id number] : 1955 Acct:[id number] Age/Sex: 68 / M ADM Date: 10/30/23 Loc: HO.US Attending Dr: David Shelton MD Ordering Physician: David Shelton MD Date of Service: 10/30/23 Procedure(s): US arterial duplex BI w/ ANTONY Accession Number(s): [id number] cc: Daniele Perez MD; Cat,David T MD EXAMINATION: Noninvasive assessment of the bilateral lower extremities with ARTERIAL DUPLEX and ANKLE BRACHIAL INDICES (ABIs). CLINICAL INFORMATION: Peripheral vascular disease TECHNIQUE: Duplex Doppler techniques with waveform analysis and measurement of velocities in the bilateral common femoral, profunda femoris, superficial femoral, popliteal and tibial arteries were performed. Additionally, ankle pulse volume recordings, ankle pressure measurements and ankle brachial indices were obtained of the lower extremity arterial system bilaterally. The study was performed only at rest. COMPARISON: 09/28/2022 FINDINGS: DIRECT DUPLEX DOPPLER FINDINGS: RIGHT LEG: Common femoral artery: 156 cm/s, phasicity: Triphasic. Mild calcified plaque Profunda femoris artery: 273 cm/s, phasicity: Triphasic Superficial femoral artery (proximal): 181 cm/s, phasicity: Biphasic. Moderate noncalcified plaque Superficial femoral artery (mid): 104 cm/s, phasicity: Triphasic. Mild calcified plaque Superficial femoral artery (distal): 98.4 cm/s, phasicity: Triphasic. Mild calcified plaque Popliteal artery: 71.0 cm/s, phasicity: Biphasic. Mild calcified and noncalcified plaque Posterior tibial artery: 148 cm/s, phasicity: Triphasic Peroneal artery: 52.3 cm/s, phasicity: Biphasic Anterior tibial artery: 40.0 cm/s, phasicity: Biphasic Dorsalis pedis artery: 13.7 cm/s, phasicity:Monophasic LEFT LEG: Common femoral artery: 151 cm/s, phasicity: Triphasic. Mild calcified plaque Profunda femoris artery: 219 cm/s, phasicity: Triphasic Superficial femoral artery (proximal): 98.3 cm/s, phasicity: Biphasic. Mild calcified plaque Superficial femoral artery (mid): 185 cm/s, phasicity: Biphasic. Moderate calcified plaque Superficial femoral artery (distal): 91.1 cm/s, phasicity: Triphasic. Mild calcified plaque Popliteal artery: 65.7 cm/s, phasicity: Biphasic. Mild calcified plaque Posterior tibial artery: 29.7 cm/s, phasicity: Monophasic Peroneal artery: 41.0 cm/s, phasicity: Biphasic Anterior tibial artery: 32.9 cm/s, phasicity: Biphasic Dorsalis pedis artery: 50.4 cm/s, phasicity: Biphasic ANKLE-BRACHIAL INDEX: Right: 1.05?, previously 1.06 Left: 0.79, previously 0.75 ANKLE PRESSURES: Right: PT 140, DP 114 Left: PT?104, DP?105 ANKLE PVR WAVEFORMS: Right: Abnormal Left: Abnormal US/US arterial duplex BI w/ ANTONY IMPRESSION: Right leg: Stable ankle brachial index. Elevated velocity in the proximal superficial femoral artery with noncalcified plaque consistent with mild stenosis. No significant change. Left leg: Stable ankle brachial index. Elevated velocity in the mid to superficial femoral artery with moderate atherosclerotic plaque consistent with mild stenosis. No significant change. ANTONY Reference: - >1.4 = calcified vessels - 0.9 - 1.4 = normal - no significant arterial disease - 0.7 - 0.89 = mild peripheral arterial disease - 0.51 - 0.69 = moderate peripheral arterial disease - ? 0.50 = severe peripheral arterial disease - < .30 = critical arterial disease Dictated By: Cristobal Choi MD Signed By: <Electronically signed by Cristobal Choi MD in OV> 11/05/23 0842 DD/ 1344 TD/TT: Student Life Advisor: [place] [id number] Ultrasound Report Signed Patient: Young Dinero MR#: [id number] : 1955 Acct:[id number] Age/Sex: 68 / M ADM Date: 10/30/23 Loc: . Attending Dr: David Shelton MD Ordering Physician: David Shelton MD Date of Service: 10/30/23 Procedure(s): US arterial duplex BI w/ ANTONY Accession Number(s): [id number] cc: Daniele Perez MD; David Shelton MD EXAMINATION: Noninvasive assessme nt of the bilateral lower extremities with ARTERIAL DUPLEX and ANKLE BRACHIAL INDICES (ABIs). CLINICAL INFORMATION: Peripheral vascular disease TECHNIQUE: Duplex Doppler techniques with waveform analysis and measurement of velocities in the bilateral common femoral, profunda femoris, superficial femoral, popliteal and tibial arteries were performed. Additionally, ankle pulse volume recordings, ankle pressure measurements and ank le brachial indices were obtained of the lower extremity arterial system bilaterally. The study was performed only at rest. COMPARISON: 09/28/2022 FINDINGS: DIRECT DUPLEX DOPPLE R FINDINGS: RIGHT LEG: Common femoral arter y: 156 cm/s, phasicity: Triphasic. Mild calcified plaque Profunda femoris artery: 273 cm/s, phasicity: Triphasic Superficial femoral artery (proximal): 181 cm/s, phasicity: Biphasic. Moderate noncalcifie d plaque Superficial femoral artery (mid): 104 cm/s, phasicity: Triphasic. Mild calcified plaque Superficial femoral artery (distal): 98.4 cm/s, phasicity: Triphasic. Mild calcified plaque Popliteal artery: 71 .0 cm/s, phasicity: Biphasic. Mild calcified and noncalcified plaque Posterior tibial artery: 148 cm/s, phasicity: Triphasic Peroneal artery: 52. 3 cm/s, phasicity: Biphasic Anterior tibial sonali ry: 40.0 cm/s, phasicity: Biphasic Dorsalis pedis arter y: 13.7 cm/s, phasicity:Monophasic LEFT LEG: Common femoral arter y: 151 cm/s, phasicity: Triphasic. Mild calcified plaque Profunda femoris artery: 219 cm/s, phasicity: Triphasic Superficial femoral artery (proximal): 98.3 cm/s, phasicity: Biphasic. Mild calcified plaque Superficial femoral artery (mid): 185 cm/s, phasicity: Biphasic. Moderate calcified plaque Superficial femoral artery (distal): 91.1 cm/s, phasicity: Triphasic. Mild calcified plaque Popliteal artery: 65 .7 cm/s, phasicity: Biphasic. Mild calcified plaque Posterior tibial artery: 29.7 cm/s, phasicity: Monophasic Peroneal artery: 41. 0 cm/s, phasicity: Biphasic Anterior tibial sonali ry: 32.9 cm/s, phasicity: Biphasic Dorsalis pedis arter y: 50.4 cm/s, phasicity: Biphasic ANKLE-BRACHIAL INDEX: Right: 1.05?, previously 1.06 Left: 0.79, previous ly 0.75 ANKLE PRESSURES: Right: PT 140, DP 114 Left: PT?104, DP?105 ANKLE PVR WAVEFORMS: Right: Abnormal Left: Abnormal US/US arterial duplex BI w/ ANTONY IMPRESSION: Right leg: Stable an kle brachial index. Elevated velocity in the proximal superficial femoral artery with noncalcified plaque consistent with mild stenosis. No significant change. Left leg: Stable ank le brachial index. Elevated velocity in the mid to superficial femoral artery with moderate atherosclerotic plaque consistent with mild stenosis. No significant change. ANTONY Reference: - >1.4 = calcified vessels - 0.9 - 1.4 = normal - no significant arterial disease - 0.7 - 0.89 = mild peripheral arterial disease - 0.51 - 0.69 = moderate peripheral arterial disease - ? 0.50 = severe peripheral arterial disease - < .30 = critical arterial disease Dictated By: Cristobal Choi MD Signed By: <Electronically signed by Cristobal Choi MD in OV> 11/05/23 0842 DD/ 1344 TD/TT: Student Life Advisor: Basic Metabolic Panel Reviewed date:01/11/2024 03:53:37 PM Interpretation: Performing Lab:[address] [address] Notes/Report: Sodium 138 135-145 mmol/L Potassium 4.5 3.3-5.1 mmol/L Chloride 106 96-108 mmol/L Carbon Dioxide 28 22-29 mmol/L Anion Gap 9 12-20 Blood Urea Nitrogen 25 9-16 mg/dL Creatinine 1.17 0.5-1.4 mg/dL Estimated Glomerular Filt Rate > 60 NOTE: For -Cro[place] individuals, multiply the result by 1.210. Chronic Kidney Disease: Estimated GFR < 60 mL/min/1.73m2 Severe Kidney Disease: Estimated GFR < 15 mL/min/1.73m2 Glucose Random 94 60-115 mg/dL Calcium 9.5 8.4-10.2 mg/dL Complete Blood Count Auto Di ff Reviewed date:01/11/2024 03:53:37 PM Interpretation: Performing Lab:[facility], [address] [place] [phone] Notes/Report: White Blood Count 7.2 4.8-10.8 X10*3/uL Red Blood Count 4.43 4.60-5.80 X10*6/uL Hemoglobin 12.8 14.0-18.0 g/dl Hematocrit 37.9 42.0-52.0 % Mean Corpuscular Volume 85.6 80.0-98.0 fL Mean Corpuscular Hemoglobin 28.9 27.0-33.0 pg Mean Corpuscular HGB Conc 33.8 31.0-36.0 g/dl Red Cell Distribution Width 13.2 11.0-16.0 % Platelet Count 149 160-400 X10*3/uL Mean Platelet Volume 10.5 9.4-12.4 fL Neutrophils Percent Auto 49.6 45-73 % Imm Gran Pct Auto 0.4 0.0-0.4 % Lymphocytes Percent Auto 35.1 20-40 % Monocytes Percent Auto 9.6 2-11 % Eosinophils Percent Auto 4.7 0-4 % Basophils Percent Auto 0.6 0-2 % NRBC Pct Auto 0.0 0.0-0.2 /100WBC Neutrophils Absolute Auto 3.6 2.0-8.3 x10*3/u L Imm Gran Abs Auto 0.03 0.00-0.03 X10*3/uL Lymphocytes Absolute Auto 2.5 1.2-4.9 X10*3/u L Monocytes Absolute Auto 0.7 0.1-1.2 X10*3/uL Eosinophils Absolute Auto 0.3 0.0-0.4 X10*3/u L Basophils Absolute Auto 0.0 0.0-0.2 X10*3/uL NRBC Abs Auto 0.000 0.0-0.012 X10*3/uL Comprehensive [place]. Panel Fa st Reviewed date:01/11/2024 03:53:37 PM Interpretation: Performing Lab:[facility], [address] [place] [phone] Notes/Report: Sodium 140 135-145 mmol/L Potassium 4.7 3.3-5.1 mmol/L Chloride 107 96-108 mmol/L Carbon Dioxide 26 22-29 mmol/L Anion Gap 12 12-20 Blood Urea Nitrogen 29 9-16 mg/dL Creatinine 1.35 0.5-1.4 mg/dL Estimated Glomerular Filt Rate 52 NOTE: For -Croat[place] individuals, multiply the result by 1.210. Chronic Kidney Disease: Estimated GFR < 60 mL/min/1.73m2 Severe Kidney Disease: Estimated GFR < 15 mL/min/1.73m2 Glucose Fasting 108 60-99 mg/dL A fasting glucose from 100-125 mg/dl is considered impaired (pre-diabetes). Calcium 9.5 8.4-10.2 mg/dL Bilirubin Total 0.4 0.0-1.0 mg/dL Aspartate Amino Transferase 17 5-37 U/L Alanine Aminotransferase 16 0-40 U/L Total Protein 6.7 6.5-8.0 g/dL Albumin Level 3.9 3.5-5.0 g/dL Alkaline Phosphatase 72 39-117 U/L Lipid Panel Reviewed date:01/11/2024 03:53:37 PM Interpretation: Performing Lab:[facility], [address] [place] [phone] Notes/Report: Triglycerides 61 <150 mg/dL Desirable Triglyceride: less than 150 mg/dL Borderline High Triglyceride 150-199 mg/dL High Triglyceride: 200-499 mg/dL Very High Triglyceride: greater than or equal to 5OO mg/dL Cholesterol 141 <200 mg/dL Desirable Cholesterol: less than 200 mg/dL Borderline High Cholesterol: 200-239 mg/dL High Cholesterol: greater than 239 mg/dL LDL Cholesterol Calculated 81 <100 mg/dL Desirable LDL: less than 100 mg/dL Near Optimal/Above Optimal LDL: 110-129 mg/dL Borderline High LDL: 130-159 mg/dL High LDL: 160-189 mg/dL Very High LDL: greater than or equal to 190 mg/dL HDL Cholesterol 48 >40 mg/dL Desirable HDL: greater than 40 mg/dL Note: This HDL assay may give artificially low results in patients with liver disease. US arterial duplex BI w/ ANTONY Reviewed date:05/05/2024 08:18:26 AM Interpretation: Performing Lab: Notes/Report: [address] [address] Ultrasound Report Signed Patient: Young Dinero MR#: [id number] : 1955 Acct:[id number] Age/Sex: 68 / M ADM Date: 04/22/24 Loc: HO.US Attending Dr: David Shelotn MD Ordering Physician: David Shelton MD Date of Service: 04/22/24 Procedure(s): US arterial duplex BI w/ ANTONY Accession Number(s): [id number] cc: Daniele Perez MD; David Shelton MD EXAMINATION: Noninvasive assessment of the bilateral lower extremities with ARTERIAL DUPLEX and ANKLE BRACHIAL INDICES (ABIs). CLINICAL INFORMATION: Peripheral vascular disease TECHNIQUE: Duplex Doppler techniques with waveform analysis and measurement of velocities in the bilateral common femoral, profunda femoris, superficial femoral, popliteal and tibial arteries were performed. Additionally, ankle pulse volume recordings, ankle pressure measurements and ankle brachial indices were obtained of the lower extremity arterial system bilaterally. The study was performed only at rest. COMPARISON: 10/30/2023 FINDINGS: DIRECT DUPLEX DOPPLER FINDINGS: RIGHT LEG: Common femoral artery: 99.4 cm/s, phasicity: Biphasic. Stable calcified plaque Profunda femoris artery: 239 cm/s, phasicity: Biphasic Superficial femoral artery (proximal): 308 cm/s, phasicity: Biphasic. Stable noncalcified plaque Superficial femoral artery (mid): 111 cm/s, phasicity: Biphasic Superficial femoral artery (distal): 84.7 cm/s, phasicity: Biphasic Popliteal artery: 59.1 cm/s, phasicity: Biphasic Posterior tibial artery: 62.3 cm/s, phasicity: Biphasic Peroneal artery: 41.9 cm/s, phasicity: Biphasic Anterior tibial artery: 29.5 cm/s, phasicity: Biphasic Dorsalis pedis artery: 48.0 cm/s, phasicity:Biphasic LEFT LEG: Common femoral artery: 176 cm/s, phasicity: Biphasic. Stable calcified plaque Profunda femoris artery: 218 cm/s, phasicity: Biphasic Superficial femoral artery (proximal): 101 cm/s, phasicity: Biphasic Superficial femoral artery (mid): 249 cm/s, phasicity: Biphasic. Moderate calcified plaque Superficial femoral artery (distal): 48.0 cm/s, phasicity: Biphasic Popliteal artery: 64.7 cm/s, phasicity: Biphasic Posterior tibial artery: 18.1 cm/s, phasicity: Biphasic Peroneal artery: 31.8 cm/s, phasicity: Biphasic Anterior tibial artery: 32.2 cm/s, phasicity: Biphasic Dorsalis pedis artery: 36.1 cm/s, phasicity: Biphasic ANKLE-BRACHIAL INDEX: Right: 0.93, previously 1.05 Left: 0.71, previously 0.79 ANKLE PRESSURES: Right: PT 157, DP 124 Left: PT 119, DP 115 ANKLE PVR WAVEFORMS: Right: Abnormal Left: Abnormal US/US arterial duplex BI w/ ANTONY IMPRESSION: Right leg: Relatively stable ankle-brachial index. Elevated velocity in the proximal superficial femoral artery with noncalcified plaque consistent with moderate stenosis Left leg: Relatively stable ankle-brachial index. Elevated velocity in the mid superficial femoral artery with calcified plaque consistent with moderate stenosis ANTONY Reference: - >1.4 = calcified vessels - 0.9 - 1.4 = normal - no significant arterial disease - 0.7 - 0.89 = mild peripheral arterial disease - 0.51 - 0.69 = moderate peripheral arterial disease - d 0.50 = severe peripheral arterial disease - < .30 = critical arterial disease Electronically signed by: Cristobal Choi MD 04/25/2024 01:02 PM EDT RP Dictated By: Cristobal Choi MD Signed By: <Electronically signed by Cristobal Choi MD in OV> 04/25/24 1302 DD/ 9 TD/TT: 04/22/24929 Student Life Advisor: [place] [phone] Ultrasound Report Signed Patient: Young Dinero MR#: [id number] : 1955 Acct:[id number] Age/Sex: 68 / M ADM Date: 04/22/24 Loc: HO.US Attending Dr: David Shelton MD Ordering Physician: David Shelton MD Date of Service: 04/22/24 Procedure(s): US arterial duplex BI w/ ANTONY Accession Number(s): [id number] cc: Daniele Perez MD; David Shelton MD EXAMINATION: Noninvasive assessme nt of the bilateral lower extremities with ARTERIAL DUPLEX and ANKLE BRACHIAL INDICES (ABIs). CLINICAL INFORMATION: Peripheral vascular disease TECHNIQUE: Duplex Doppler techniques with waveform analysis and measurement of velocities in the bilateral common femoral, profunda femoris, superficial femoral, popliteal and tibial arteries were performed. Additionally, ankle pulse volume recordings, ankle pressure measurements and ank le brachial indices were obtained of the lower extremity arterial system bilaterally. The study was performed only at rest. COMPARISON: 10/30/2023 FINDINGS: DIRECT DUPLEX DOPPLE R FINDINGS: RIGHT LEG: Common femoral arter y: 99.4 cm/s, phasicity: Biphasic. Stable calcified plaque Profunda femoris artery: 239 cm/s, phasicity: Biphasic Superficial femoral artery (proximal): 308 cm/s, phasicity: Biphasic. Stable noncalcified plaque Superficial femoral artery (mid): 111 cm/s, phasicity: Biphasic Superficial femoral artery (distal): 84.7 cm/s, phasicity: Biphasic Popliteal artery: 59 .1 cm/s, phasicity: Biphasic Posterior tibial artery: 62.3 cm/s, phasicity: Biphasic Peroneal artery: 41. 9 cm/s, phasicity: Biphasic Anterior tibial sonali ry: 29.5 cm/s, phasicity: Biphasic Dorsalis pedis arter y: 48.0 cm/s, phasicity:Biphasic LEFT LEG: Common femoral arter y: 176 cm/s, phasicity: Biphasic. Stable calcified plaque Profunda femoris artery: 218 cm/s, phasicity: Biphasic Superficial femoral artery (proximal): 101 cm/s, phasicity: Biphasic Superficial femoral artery (mid): 249 cm/s, phasicity: Biphasic. Moderate calcified plaque Superficial femoral artery (distal): 48.0 cm/s, phasicity: Biphasic Popliteal artery: 64 .7 cm/s, phasicity: Biphasic Posterior tibial artery: 18.1 cm/s, phasicity: Biphasic Peroneal artery: 31. 8 cm/s, phasicity: Biphasic Anterior tibial sonali ry: 32.2 cm/s, phasicity: Biphasic Dorsalis pedis arter y: 36.1 cm/s, phasicity: Biphasic ANKLE-BRACHIAL INDEX: Right: 0.93, previou sly 1.05 Left: 0.71, previous ly 0.79 ANKLE PRESSURES: Right: PT 157, DP 124 Left: PT 119, DP 115 ANKLE PVR WAVEFORMS: Right: Abnormal Left: Abnormal US/US arterial duplex BI w/ ANTONY IMPRESSION: Right leg: Relativel y stable ankle-brachial index. Elevated velocity in the proximal superficial femoral artery with noncalcified plaque consistent with moderate stenosis Left leg: Relatively stable ankle-brachial index. Elevated velocity in the mid superficial femoral artery with calcified plaque consistent with moderate stenosis ANTONY Reference: - >1.4 = calcified vessels - 0.9 - 1.4 = normal - no significant arterial disease - 0.7 - 0.89 = mild peripheral arterial disease - 0.51 - 0.69 = moderate peripheral arterial disease - d 0.50 = severe peripheral arterial disease - < .30 = critical arterial disease Electronically camilo d by: Cristobal Choi MD 04/25/2024 01:02 PM EDT RP Dictated By: Cristobal Choi MD Signed By: <Electronically signed by Cristobal Choi MD in OV> 04/25/24 1302 DD/ 9 TD/TT: 04/22/24929 Student Life Advisor: Complete Blood Count Auto Di ff Reviewed date:07/14/2024 05:19:47 AM Interpretation: Performing Lab:[facility], [address] [place] [phone] Notes/Report: White Blood Count 6.3 4.8-10.8 X10*3/uL Red Blood Count 4.50 4.60-5.80 X10*6/uL Hemoglobin 12.7 14.0-18.0 g/dl Hematocrit 38.3 42.0-52.0 % Mean Corpuscular Volume 85.1 80.0-98.0 fL Mean Corpuscular Hemoglobin 28.2 27.0-33.0 pg Mean Corpuscular HGB Conc 33.2 31.0-36.0 g/dl Red Cell Distribution Width 13.2 11.0-16.0 % Platelet Count 152 160-400 X10*3/uL Mean Platelet Volume 10.5 9.4-12.4 fL Neutrophils Percent Auto 45.9 45-73 % Imm Gran Pct Auto 0.2 0.0-0.4 % Lymphocytes Percent Auto 36.1 20-40 % Monocytes Percent Auto 10.5 2-11 % Eosinophils Percent Auto 6.8 0-4 % Basophils Percent Auto 0.5 0-2 % NRBC Pct Auto 0.0 0.0-0.2 /100WBC Neutrophils Absolute Auto 2.9 2.0-8.3 x10*3/u L Imm Gran Abs Auto 0.01 0.00-0.03 X10*3/uL Lymphocytes Absolute Auto 2.3 1.2-4.9 X10*3/u L Monocytes Absolute Auto 0.7 0.1-1.2 X10*3/uL Eosinophils Absolute Auto 0.4 0.0-0.4 X10*3/u L Basophils Absolute Auto 0.0 0.0-0.2 X10*3/uL NRBC Abs Auto 0.000 0.0-0.012 X10*3/uL Comprehensive [place]. Panel Fa Reviewed date:07/14/2024 05:19:47 AM Interpretation: Performing Lab:[facility], [address] [place] [phone] Notes/Report: Sodium 140 135-145 mmol/L Potassium 4.7 3.3-5.1 mmol/L Chloride 109 96-108 mmol/L Carbon Dioxide 25 22-29 mmol/L Anion Gap 11 12-20 Blood Urea Nitrogen 33 9-16 mg/dL Creatinine 1.63 0.5-1.4 mg/dL Estimated Glomerular Filt Rate 42 Chronic Kidney Disease: Estimated GFR < 60 mL/min/1.73m2 Severe Kidney Disease: Estimated GFR < 15 mL/min/1.73m2 Glucose Fasting 121 60-99 mg/dL A fasting glucose from 100-125 mg/dl is considered impaired (pre-diabetes). Calcium 9.5 8.4-10.2 mg/dL Bilirubin Total 0.6 0.0-1.0 mg/dL Aspartate Amino Transferase 40 5-37 U/L Alanine Aminotransferase 44 0-40 U/L Total Protein 6.8 6.5-8.0 g/dL Albumin Level 4.0 3.5-5.0 g/dL Alkaline Phosphatase 92 39-117 U/L Lipid Panel Reviewed date:07/14/2024 05:19:47 AM Interpretation: Performing Lab:[facility], [address] [place] [phone] Notes/Report: Triglycerides 73 <150 mg/dL Desirable Triglyceride: less than 150 mg/dL Borderline High Triglyceride 150-199 mg/dL High Triglyceride: 200-499 mg/dL Very High Triglyceride: greater than or equal to 5OO mg/dL Cholesterol 130 <200 mg/dL Desirable Cholesterol: less than 200 mg/dL Borderline High Cholesterol: 200-239 mg/dL High Cholesterol: greater than 239 mg/dL LDL Cholesterol Calculated 69 <100 mg/dL Desirable LDL: less than 100 mg/dL Near Optimal/Above Optimal LDL: 110-129 mg/dL Borderline High LDL: 130-159 mg/dL High LDL: 160-189 mg/dL Very High LDL: greater than or equal to 190 mg/dL HDL Cholesterol 47 >40 mg/dL Desirable HDL: greater than 40 mg/dL Note: This HDL assay may give artificially low results in patients with liver disease. Prostate Specific Antigen Reviewed date:07/14/2024 05:19:47 AM Interpretation: Performing Lab:[facility], [address] [place] [phone] Notes/Report: Prostate Specific Antigen 0.94 <0.05-4.0 ng/mL PSA methodology: Rosas Alinity i Chemiluminescent Microparticle Immunoassay (CMIA) Comprehensive [place]. Panel Fa st Reviewed date:08/02/2024 08:33:26 AM Interpretation: Performing Lab:[facility], [address] [place] [phone] Notes/Report: Sodium 139 135-145 mmol/L Potassium 5.1 3.3-5.1 mmol/L Chloride 108 96-108 mmol/L Carbon Dioxide 26 22-29 mmol/L Anion Gap 10 12-20 Blood Urea Nitrogen 27 9-16 mg/dL Creatinine 1.25 0.5-1.4 mg/dL Estimated Glomerular Filt Rate 57 Chronic Kidney Disease: Estimated GFR < 60 mL/min/1.73m2 Severe Kidney Disease: Estimated GFR < 15 mL/min/1.73m2 Glucose Fasting 118 60-99 mg/dL A fasting glucose from 100-125 mg/dl is considered impaired (pre-diabetes). Calcium 8.7 8.4-10.2 mg/dL Bilirubin Total 0.5 0.0-1.0 mg/dL Aspartate Amino Transferase 44 5-37 U/L Alanine Aminotransferase 66 0-40 U/L Total Protein 6.6 6.5-8.0 g/dL Albumin Level 3.9 3.5-5.0 g/dL Alkaline Phosphatase 91 39-117 U/L Uric Acid Reviewed date:08/02/2024 08:33:26 AM Interpretation: Performing Lab:[facility], [address] [place] [phone] Notes/Report: Uric Acid 7.4 3.4-7.0 mg/dL Reason For Referral Reason Consult and Treat Bilateral Hip Pain Diagnosis 1 Pain in left hip (M2 5.552) Diagnosis 2 Pain in right hip (M 25.551) Referral Organization Daniele Perez III, MD Referring Provider First Name Daniele Referring Provider Last Name Ana Referring Provider Speciality Internal M edicine Referred Organization [facility] ntdennis Referred Provider David Shelton Referred Address [address],[place], [place],[id number] Referred Provider Specialty Vascular [place] [facility] [...] Referral Priority Routine Referral Appointment Date 05/01/2024 Medications Medication SIG (Take, Route, Frequency, Duration) Notes Start Date End Date Status Atorvastatin Calcium 80 MG 1 tablet Oral ly in the evening Active hydroCHLOROthiazide 25 MG 1 tablet Orall y Once a day Active amLODIPine Besylate 10 MG 1 tablet Orall y Once a day Active Lisinopril 20 MG 1 tablet Orally Once a day 08/19/2024 Active Aspirin 81 81 MG 1 tablet Orally Once a day Active Metoprolol Tartrate 75 MG 1 tablet with food Orally Twice a day Active Social History Tobacco Use: [...] Additional Findings: Tobacco Non-User Ex-cigaret te smoker Alcohol Screen Question Answer Notes Did you have a drink containing alcohol in the p ast year? No Points 0 Interpretation Negative Problems Problem Type SNOMED Code ICD Code Onset Dates Problem Status W/U Status Risk Notes Problem 4831376 Former smoker (Z87.891) Active confirmed He is highly motivated not to smoke. We discussed strategies for prevention of relapse in times of stress and illness. Problem 522753527 Overweight (BMI 25.0-29.9) (E66.3) Active confirmed He has lost 9 pounds since his last visit for unclear reasons. He says his appetite is fair. An investigation of the abdominal discomfort is underway. Problem 618697146 Overweight (E66.3) Active confirmed His body mass index is 27. He has lost a couple of pounds. We discussed his weight loss strategy today and his diet and nutrition. We made a plan to lose weight at a rate of one half of a pound per week. Problem Hypertension (78757148) HTN (hypertension) (I10) Active confirmed His systolic bloood pressure is 140 with a new dose of lisinopril. He will be brought back to the office in the near future after aggressive sodium restriction and weight loss. His medication will be titrated. Problem 275512513 Erectile dysfunction, unspecified erectile dysfunction type (N52.9) Active confirmed This problem abrams s been addressed with medications and is resolved. Problem Hyperlipidaemia (21946463) Hyperlipidemia, unspecified hyperlipidemia type (E78.5) Active confirmed His lipids are stable and controlled. He is compliant with medication and has no side effects.His total cholesterol is currently 130. No changes in his regimen are needed. Problem 694640283 Right lower quadrant abdominal pain (R10.31) Active confirmed He says the fam n has improved but is still present. He has lost substantial weight in his uric acid level was elevated. Abdominal imaging has been ordered. Problem 40145501 Right anterior shoulder pain (M25.511) Active confirmed He has been referred to the orthopedic clinic for definitive diagnosis and treatment. Problem 624369824 Peripheral arterial occlusive disease (I77.9) Active confirmed He has no claudication but decreased pulses in the left leg. This will be observed along with vascular surgery. Problem 65926355 Degenerative disc disease, lumbar (M51.36) Active confirmed He will cont inue with the massages and physical therapy and use ibuprofen. Problem 29070062 Non-recurrent bilateral inguinal hernia without obstruction or gangrene (K40.20) Active confirmed The hernias hav e been repaired and are not returning. Problem 86492975 Hyperuricemia (E79.0) Active confirmed His uric acid level has been 7.3, [...] does not want to be treated now. Problem 656311829 Sensorineural hearing loss (SNHL) of left ear with unrestricted hearing of right ear (H90.42) Active confirmed He has been referred to ENT in the past and had hearing tests. If this symptom worsens. He will return. Problem 106148419 Coronary artery disease involving coronary bypass graft of [place] heart without angina pectoris (I25.810) Active confirmed His stress test was quite positive, so he went occurred. Nares artery catheterization and then to coronary artery bypass surgery at [facility]. He recovered well without incident. He is no longer in atrial fibrillation. His medications were reviewed with him. His echocardiogram showed good cardiac function. Aggressive risk reduction is in place. Problem Low back pain (739099827) Low back pain, unspecified (M54.50) Active confirmed He complains of pain in the back. It radiates into his hips. X-rays of the spine and pelvis and hip joints were ordered. Problem Tendinosis of right shoulder (967204709012160 00) Tendinosis of right shoulder (M67.813) Active confirmed Vital Signs Heart Rate 64 /min 09/30/2024 Temperature 98.1 degrees Fahrenheit 09/30/2024 Blood pressure diastolic 58 mm Hg 09/30/2024 Height 68.5 in 09/30/2024 Blood pressure systolic 140 mm Hg 09/30/2024 Weight 185 lbs 09/30/2024 BMI 27.72 kg/m2 09/30/2024 Encounters Encounter Location Date Provider Diagnosis Daniele Perez III, MD [address] [place] [address] [place] [address] 01/11/2024 Daniele Perez HTN (hypertension) I 10 ; Hyperlipidemia, unspecified hyperlipidemia type E78.5 ; Former smoker Z87.891 ; Non-recurrent bilateral inguinal hernia without obstruction or gangrene K40.20 ; Sensorineural hearing loss (SNHL) of left ear with unrestricted hearing of right ear H90.42 ; Coronary artery disease involving coronary bypass graft of [place] heart without angina pectoris I25.810 and Right anterior shoulder pain M25.511 Daniele Perez III, MD [address] [place] [address] [place] [address] 03/12/2024 Daniele Perez HTN (hypertension) I 10 ; Hyperlipidemia, unspecified hyperlipidemia type E78.5 ; Former smoker Z87.891 ; Erectile dysfunction, unspecified erectile dysfunction type N52.9 ; Non-recurrent bilateral inguinal hernia without obstruction or gangrene K40.20 ; Sensorineural hearing loss (SNHL) of left ear with unrestricted hearing of right ear H90.42 ; Peripheral arterial occlusive disease I77.9 ; Coronary artery disease involving coronary bypass graft of [place] heart without angina pectoris I25.810 ; Right anterior shoulder pain M25.511 and Hyperuricemia E79.0 Daniele Perez III, MD [address] [place] [address] [place] [address] 07/16/2024 Daniele Perez HTN (hypertension) I 10 ; Coronary artery disease involving coronary bypass graft of [place] heart without angina pectoris I25.810 ; Overweight E66.3 ; Hyperuricemia E79.0 ; Hyperlipidemia, unspecified hyperlipidemia type E78.5 ; Former smoker Z87.891 ; Sensorineural hearing loss (SNHL) of left ear with unrestricted hearing of right ear H90.42 ; Peripheral arterial occlusive disease I77.9 and Right groin pain R10.31 Daniele Perez III, MD [address] [place] [address] [address] [place] [address] 08/04/2024 Daniele Perez HTN (hypertension) I 10 [...] I77.9 and Tendinosis of right shoulder M67.813 Daniele Perez III, MD [address] [place] [address] [address] [place] [address] 08/19/2024 Daniele Perez HTN (hypertension) I 10 ; Right lower quadrant abdominal pain R10.31 ; Hyperlipidemia, unspecified hyperlipidemia type E78.5 ; Former smoker Z87.891 ; Overweight (BMI 25.0-29.9) E66.3 ; Sensorineural hearing loss (SNHL) of left ear with unrestricted hearing of right ear H90.42 ; Peripheral arterial occlusive disease I77.9 ; Coronary artery disease involving coronary bypass graft of [place] heart without angina pectoris I25.810 and Hyperuricemia E79.0 Daniele Perez III, MD [address] [place] [address] [address] [place], [place] [address] 09/30/2024 Daniele Perez HTN (hypertension) I 10 ; Coronary artery disease involving coronary bypass graft of [place] heart without angina pectoris I25.810 ; Hyperlipidemia, unspecified hyperlipidemia type E78.5 ; Overweight (BMI 25.0-29.9) E66.3 ; Former smoker Z87.891 ; Sensorineural hearing loss (SNHL) of left ear with unrestricted hearing of right ear H90.42 and Peripheral arterial occlusive disease I77.9 Daniele ePrez III, MD [address] [place] [address] [address] [place] [address] 04/09/2024 Daniele Perez III, MD [address] [place] [address] [address] [place] [address] 06/11/2024 Daniele Perez Assessments Encounter Date Diagnosis (ICD Code) Assessment Notes Treat ment Notes Treatment Clinical Notes 01/11/2024 HTN (hypertension) (ICD-10 - I10) His blood pressure today is 140/70. I recommended sodium restriction, but no change in his regimen was necessary. He wants to control his blood pressure and reduce it with lifestyle modification. We discussed this issue at length. 01/11/2024 Hyperlipidemia, unspecified hyperlipidemia type (ICD-10 - E78.5) His lipids are stable and controlled. He is compliant with medication and has no side effects. 03/12/2024 HTN (hypertension) (ICD-10 - I10) His blood pressure today is within normal limits. I recommended sodium restriction, but no change in his regimen was necessary. He wants to control his blood pressure and reduce it with lifestyle modification. We discussed this issue at length. 03/12/2024 Hyperlipidemia, unspecified hyperlipidemia type (ICD-10 - E78.5) His lipids are stable and controlled. He is compliant with medication and has no side effects. 07/16/2024 HTN (hypertension) (ICD-10 - I10) His blood pressure today is within normal limits. I recommended sodium restriction, but no change in his regimen was necessary. He wants to control his blood pressure and reduce it with lifestyle modification. We discussed this issue at length. 07/16/2024 Coronary artery disease involving coronary bypass graft of [place] heart without angina pectoris (ICD-10 - I25.810) His stress test was quite positive, so he went occurred. Nares artery catheterization and then to coronary artery bypass surgery at [facility]. He recovered well without incident. He is no longer in atrial fibrillation. His medications were reviewed with him. His echocardiogram showed good cardiac function. Aggressive risk reduction is in place. 08/04/2024 HTN (hypertension) (ICD-10 - I10) His [...] carefully. He will use heat and acetaminophen. 08/19/2024 HTN (hypertension) (ICD-10 - I10) His [...] was elevated. Abdominal imaging has been ordered. 09/30/2024 HTN (hypertension) (ICD-10 - I10) His systolic bloood pressure is 140 with a new dose of lisinopril. He will be brought back to the office in the near future after aggressive sodium restriction and weight loss. His medication will be titrated. 09/30/2024 Coronary artery disease involving coronary bypass graft of [place] heart without angina pectoris (ICD-10 - I25.810) His stress test was quite positive, so he went occurred. Nares artery catheterization and then to coronary artery bypass surgery at [facility]. He recovered well without incident. He is no longer in atrial fibrillation. His medications were reviewed with him. His echocardiogram showed good cardiac function. Aggressive risk reduction is in place. 01/11/2024 Former smoker (ICD-10 - Z87.891) He is highly motivated not to smoke. We discussed strategies for prevention of relapse in times of stress and illness. 03/12/2024 Former smoker (ICD-10 - Z87.891) He is highly motivated not to smoke. We discussed strategies for prevention of relapse in times of stress and illness. 07/16/2024 Overweight (ICD-10 - E66.3) His body mass index is 27. He has lost a couple of pounds. We discussed his weight loss strategy today and his diet and nutrition. We made a plan to lose weight at a rate of one half of a pound per week. 08/04/2024 Former smoker (ICD-10 - Z87.891) He is highly motivated not to smoke. We discussed strategies for prevention of relapse in times of stress and illness. 08/19/2024 Hyperlipidemia, unspecified hyperlipidemia type (ICD-10 - E78.5) His lipids are stable and controlled. He is compliant with medication and has no side effects.His total cholesterol is currently 130. No changes in his regimen are needed. 09/30/2024 Hyperlipidemia, unspecified hyperlipidemia type (ICD-10 - E78.5) His lipids are stable and controlled. He is compliant with medication and has no side effects.His total cholesterol is currently 130. No changes in his regimen are needed. 01/11/2024 Non-recurrent bilateral inguinal hernia without obstruction or gangrene (ICD-10 - K40.20) The hernias have been repaired and are not returning. 03/12/2024 Erectile dysfunction, unspecified erectile dysfunction type (ICD-10 - N52.9) This problem has been addressed with medications and is resolved. 07/16/2024 Hyperuricemia (ICD-10 - E79.0) Value will be repeated. He will hydrate. Has had no attacks of gout so far. 08/04/2024 Non-recurrent bilateral inguinal hernia without obstruction or gangrene (ICD-10 - K40.20) The hernias have been repaired and are not returning. 08/19/2024 Former smoker (ICD-10 - Z87.891) He is highly motivated not to smoke. We discussed strategies for prevention of relapse in times of stress and illness. 09/30/2024 Overweight (BMI 25.0-29.9) (ICD-10 - E66.3) He has lost 9 pounds since his last visit for unclear reasons. He says his appetite is fair. An investigation of the abdominal discomfort is underway. 01/11/2024 Sensorineural hearing loss (SNHL) of left ear with unrestricted hearing of right ear (ICD-10 - H90.42) He has been referred to ENT in the past and had hearing tests. If this symptom worsens. He will return. 03/12/2024 Non-recurrent bilateral inguinal hernia without obstruction or gangrene (ICD-10 - K40.20) The hernias have been repaired and are not returning. 07/16/2024 Hyperlipidemia, unspecified hyperlipidemia type (ICD-10 - E78.5) His lipids are stable and controlled. He is compliant with medication and has no side effects. 08/04/2024 Sensorineural hearing loss (SNHL) of left ear with unrestricted hearing of right ear (ICD-10 - H90.42) He has been referred to ENT in the past and had hearing tests. If this symptom worsens. He will return. 08/19/2024 Overweight (BMI 25.0-29.9) (ICD-10 - E66.3) He has lost 9 pounds since his last visit for unclear reasons. He says his appetite is fair. An investigation of the abdominal discomfort is underway. 09/30/2024 Former smoker (ICD-10 - Z87.891) He is highly motivated not to smoke. We discussed strategies for prevention of relapse in times of stress and illness. 01/11/2024 Coronary artery disease involving coronary bypass graft of [place] heart without angina pectoris (ICD-10 - I25.810) His stress test was quite positive, so he went occurred. Nares artery catheterization and then to coronary artery bypass surgery at [facility]. He recovered well without incident. He is no longer in atrial fibrillation. His medications were reviewed with him. His echocardiogram showed good cardiac function. Aggressive risk reduction is in place. 03/12/2024 Sensorineural hearing loss (SNHL) of left ear with unrestricted hearing of right ear (ICD-10 - H90.42) He has been referred to ENT in the past and had hearing tests. If this symptom worsens. He will return. 07/16/2024 Former smoker (ICD-10 - Z87.891) He is highly motivated not to smoke. We discussed strategies for prevention of relapse in times of stress and illness. 08/04/2024 Hyperlipidemia, unspecified hyperlipidemia type (ICD-10 - E78.5) His lipids are stable and controlled. He is compliant with medication and has no side effects.His total cholesterol is currently 130. No changes in his regimen are needed. 08/19/2024 Sensorineural hearing loss (SNHL) of left ear with unrestricted hearing of right ear (ICD-10 - H90.42) He has been referred to ENT in the past and had hearing tests. If this symptom worsens. He will return. 09/30/2024 Sensorineural hearing loss (SNHL) of left ear with unrestricted hearing of right ear (ICD-10 - H90.42) He has been referred to ENT in the past and had hearing tests. If this symptom worsens. He will return. 01/11/2024 Right anterior shoulder pain (ICD-10 - M25.511) He has been referred to the orthopedic clinic for definitive diagnosis and treatment. 03/12/2024 Peripheral arterial occlusive disease (ICD-10 - I77.9) He has no claudication but decreased pulses in the left leg. This will be observed along with vascular surgery. 07/16/2024 Sensorineural hearing loss (SNHL) of left ear with unrestricted hearing of right ear (ICD-10 - H90.42) He has been referred to ENT in the past and had hearing tests. If this symptom worsens. He will return. 08/04/2024 Overweight (BMI 25.0-29.9) (ICD-10 - E66.3) His body mass index is 28.6. We discussed lifestyle modifications are way to reduce cardiac risk factors. I recommended a diet low in sodium and calories combined with regular activity. 08/19/2024 Peripheral arterial occlusive disease (ICD-10 - I77.9) He has no claudication but decreased pulses in the left leg. This will be observed along with vascular surgery. 09/30/2024 Peripheral arterial occlusive disease (ICD-10 - I77.9) He has no claudication but decreased pulses in the left leg. This will be observed along with vascular surgery. 03/12/2024 Coronary artery disease involving coronary bypass graft of [place] heart without angina pectoris (ICD-10 - I25.810) His stress test was quite positive, so he went occurred. Nares artery catheterization and then to coronary artery bypass surgery at [facility]. He recovered well without incident. He is no longer in atrial fibrillation. His medications were reviewed with him. His echocardiogram showed good cardiac function. Aggressive risk reduction is in place. 07/16/2024 Peripheral arterial occlusive disease (ICD-10 - I77.9) He has no claudication but decreased pulses in the left leg. This will be observed along with vascular surgery. 08/04/2024 Peripheral arterial occlusive disease (ICD-10 - I77.9) He has no claudication but decreased pulses in the left leg. This will be observed along with vascular surgery. 08/19/2024 Coronary artery disease involving coronary bypass graft of [place] heart without angina pectoris (ICD-10 - I25.810) His stress test was quite positive, so he went occurred. Nares artery catheterization and then to coronary artery bypass surgery at [facility]. He recovered well without incident. He is no longer in atrial fibrillation. His medications were reviewed with him. His echocardiogram showed good cardiac function. Aggressive risk reduction is in place. 03/12/2024 Right anterior shoulder pain (ICD-10 - M25.511) He has been referred to the orthopedic clinic for definitive diagnosis and treatment. 07/16/2024 Right groin pain (ICD-10 - R10.31) He will continue to use the medication given to him by rehabilitation. He will also use heat and rest. 08/04/2024 Tendinosis of right shoulder (ICD-10 - M67.813) 08/19/2024 Hyperuricemia (ICD-10 - E79.0) His uric [...] does not want to be treated now. 03/12/2024 Hyperuricemia (ICD-10 - E79.0) His uric acid will be measured. Plan Of Treatment Pending Test Test Name Order Date PROFILE, FASTING (COMPREHENSIVE METABOLI C) 06/01/2023 PROFILE, FASTING (COMPREHENSIVE METABOLI C) 04/02/2019 PROFILE, FASTING (COMPREHENSIVE METABOLI C) 07/16/2024 PROFILE, FASTING (COMPREHENSIVE METABOLI C) 03/09/2023 PROFILE, FASTING (COMPREHENSIVE METABOLI C) 03/12/2024 PROFILE, FASTING (COMPREHENSIVE METABOLI C) 03/11/2019 PROFILE, FASTING (COMPREHENSIVE METABOLI C) 09/30/2024 PROFILE, FASTING (COMPREHENSIVE METABOLI C) 01/12/2023 PROFILE, FASTING (COMPREHENSIVE METABOLI C) 10/09/2022 PROFILE, FASTING (COMPREHENSIVE METABOLI C) 10/05/2023 PROFILE, FASTING (COMPREHENSIVE METABOLI C) 07/14/2022 LIPID PANEL 07/14/2022 LIPID PANEL 04/02/2019 LIPID PANEL 03/09/2023 LIPID PANEL 03/11/2019 LIPID PANEL 01/12/2023 LIPID PANEL 10/09/2022 PSA, TOTAL 06/01/2023 PSA, TOTAL 04/02/2019 PSA, TOTAL 03/12/2024 PSA, TOTAL 03/09/2023 PSA, TOTAL 03/11/2019 PSA, TOTAL 01/12/2023 PSA, TOTAL 10/09/2022 PSA, TOTAL SCREEN 07/14/2022 CBC w DIFF 01/12/2023 CBC w DIFF 10/09/2022 CBC w DIFF 07/14/2022 CBC w DIFF 06/01/2023 CBC w DIFF 04/02/2019 CBC w DIFF 03/12/2024 CBC w DIFF 03/09/2023 CBC w DIFF 03/11/2019 Stress Test 10/09/2022 CBC WITH AUTO DIFF 09/30/2024 CBC WITH AUTO DIFF 10/05/2023 Uric Acid 07/16/2024 Lipid Panel 10/05/2023 Lipid Panel 06/01/2023 Lipid Panel 09/30/2024 Lipid Panel 03/12/2024 Next Appt Details Provider Name:Daniele Perez, 01/02/2025 09:00:00 AM, [address] [facility] [address], [place], [address], Provider Name:Daniele Vogtrne, 03/17/2025 02:00:00 PM, [address] [facility] [address], [place], [address], Insurance Providers Payer Name Payer Address Payer Phone Subscriber Number Group Number Insured Name Patient Relationship to Insured Coverage Start Date Coverage End Date [facility] [address] [facility] [place] [phone] [id number] YOUNG DINERO Self - patient is the insured Medical (General) History Medical History History ICD Code Hyperlipidemia E78.5 appendectomy vasectomy ED repaired bilateral inguinal hernias overweight hearing loss, left ear former smoker peripheral arterial disease essential hypertension Peripheral arterial disease, right super ficial femoral artery Surgical History Surgery Date(Month/Year) appendectomy vasectomy bilateral inguinal hernia repair 03/2015 colonoscopy, negative, Dr. Daniele Alfaro, [facility]. 2019 Angioplasty and atherectomy right superf icial femoral artery 11/2020 Coronary artery bypass grafting x3 11/23 13 Triple Bi-pass Surgery 11/17/2022 No history Hospitalization History Reason Date(Month/Year) No history
== END 2024-10-09 13:20 | disposition home or self-care (01) ==
PROVIDERS: PCP Internal Medicine Medical Oncology; Visit Provider Internal Medicine
DX: I25.10 Atherosclerotic heart disease of native coronary artery without angina pectoris (principal); Z95.1 Presence of aortocoronary bypass graft; I10 Essential (primary) hypertension; E78.5 Hyperlipidemia, unspecified
CPT/HCPCS: 93010; 99214

== ENCOUNTER → 2024-10-09 12:36 | Outpatient (BNVA) | payer OTHER, SELFPAY | PROVIDERS: PCP Internal Medicine Medical Oncology; Visit Provider Internal Medicine | DX: I25.10 Atherosclerotic heart disease of native coronary artery without angina pectoris (principal); I10 Essential (primary) hypertension; E78.5 Hyperlipidemia, unspecified; Z79.82 Long term (current) use of aspirin; Z79.899 Other long term (current) drug therapy; Z95.1 Presence of aortocoronary bypass graft | CPT/HCPCS: 93005 ==

== ENCOUNTER 2024-12-31 06:07 | Outpatient (REF) | payer OTHER, SELFPAY ==
--- OUTSIDE RECORDS SUMMARY | 2024-12-31 06:10 | XMS_ITS ---
Author Organization Daniele Perez III, MD Address [address] [place] [address] Care Team Providers Care Animal Care Assistant Name Role Phone Daniele Perez Primary Care Provider [phone] Allergies Allergen (clinical drug ingredient) Drug/Non Drug [...] Provider Diagnosis Daniele Perez III, MD [address] [place] [address] [place] [address] 09/30/2024 Daniele Perez HTN (hypertension) I 10 ; Coronary artery disease involving coronary bypass graft of [place] heart without angina pectoris I25.810 ; Hyperlipidemia, [...] artery disease involving coronary bypass graft of [place] heart without angina pectoris (ICD-10 - I25.810) His stress test was quite positive, so he went occurred. Nares artery catheterization and then to coronary artery bypass surgery at [facility]. He recovered well without incident. [...] OV Provider Name:Daniele Perez, 01/02/2025 09:00:00 AM, [address] [place] [address] [address], [place], [address], Provider Name:Daniele Perez, 03/17/2025 02:00:00 PM, [address] [place] [address] [address], [place], [address], Progress Notes * YOUNG FLOYD CDOB:1955 (69 yo M)Acc No.[id number]:09/30/2024 Progress Notes Patient:?YOUNG FLOYD Provider:?Daniele Perez MD :1955???Age:69 Y???Sex:Male Luca e:09/30/2024 Address:[address] [place] [address], [id number] Subjective: * Chief Complaints: * ???HyperlipidemiaHearing los [...] hernia repair 03/2015colonoscopy, negative, Dr. Daniele Alfaro, [facility]. 2019Angioplasty and atherectomy right superficial femoral artery oronary artery bypass grafting x3 11/2012Triple Bi-pass Surgery 11/17/2022No history * Hospitalization/Major Diagno stic Procedure:?No history * Family History:?Father: dece ased 62 yrs, diagnosed with DM, CVD.?Mother: 49 yrs.?Son(s): alive.?Siblings: alive.?1 sister(s) . 1 son(s) , 1 daughter(s) - healthy. .? His father of coronary artery disease and diabetes. His mother of complications of PROCESSOR GRAIN surgery for benign disease. His sister has [...] healthy children. 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 He has [...] disease i nvolving coronary bypass graft of [place] heart without angina pectoris - I25.810 (Primary)???Notes :His stress test was quite positive, so he went occurred. Nares artery catheterization and then to coronary artery bypass surgery at [facility]. He recovered well without incident. [...] MD Date:?09/07 Generated for Kishore covarrubias/Valentin/Mary Louitting on:?12/31/2024 06:09 AM EDT History and Physical Notes * HPI (History [...]
[2024-12-31 06:17] LABS: MANUAL DIFF FLAG NO
[2024-12-31 07:21] LABS: Basophils Percent Auto 0.6 % (0-2); Eosinophils Absolute Auto 0.3 X10*3/uL (0.0-0.4); Eosinophils Percent Auto 4.8 % (0-4); Hematocrit 35.2 % (42.0-52.0); Hemoglobin 11.5 g/dl (14.0-18.0); Imm Gran Abs Auto 0.01 X10*3/uL (0.00-0.03); Imm Gran Pct Auto 0.2 % (0.0-0.4); Lymphocytes Absolute Auto 2.5 X10*3/uL (1.2-4.9); Lymphocytes Percent Auto 38.7 % (20-40); Mean Corpuscular HGB Conc 32.7 g/dl (31.0-36.0); Mean Corpuscular Volume 85.9 fL (80.0-98.0); Monocytes Absolute Auto 0.6 X10*3/uL (0.1-1.2); Monocytes Percent Auto 9.4 % (2-11); Neutrophils Percent Auto 46.3 % (45-73); Platelet Count 141 X10*3/uL (160-400); Red Cell Distribution Width 13.6 % (11.0-16.0); White Blood Count 6.5 X10*3/uL (4.8-10.8)
[2024-12-31 07:51] LABS: Alanine Aminotransferase 51 U/L (0-40); Albumin Level 4.1 g/dL (3.5-5.0); Alkaline Phosphatase 87 U/L (39-117); Anion Gap 11 (12-20); Aspartate Amino Transferase 39 U/L (5-37); Bilirubin Total 0.5 mg/dL (0.0-1.0); Blood Urea Nitrogen 33 mg/dL (9-16); Calcium 9.2 mg/dL (8.4-10.2); Carbon Dioxide 26 mmol/L (22-29); Chloride 108 mmol/L (96-108); Cholesterol 126 mg/dL (<200); Estimated Glomerular Filt Rate 46; Glucose Fasting 116 mg/dL (60-99); HDL Cholesterol 45 mg/dL (>40); LDL Cholesterol Calculated 66 mg/dL (<100); Potassium 4.8 mmol/L (3.3-5.1); Sodium 140 mmol/L (135-145); Total Protein 6.9 g/dL (6.5-8.0); Triglycerides 77 mg/dL (<150)
== END 2024-12-31 06:08 | disposition home or self-care (01) ==
LOC: HO.LAB 06:07
PROVIDERS: PCP Internal Medicine Medical Oncology; Visit Provider Internal Medicine Medical Oncology
DX: I10 Essential (primary) hypertension (principal); E78.5 Hyperlipidemia, unspecified; E66.3 Overweight
CPT/HCPCS: 36415; 80053; 80061; 85025

== ENCOUNTER 2025-03-13 06:16 | Outpatient (REF) | payer MEDICARE, SELFPAY ==
--- OUTSIDE RECORDS SUMMARY | 2025-01-02 05:00 | XMS_ITS ---
Author Organization Daniele Perez III, MD Address [address] [place] [address] Care Team Providers Care Well Logging Operator Mud Analysis Name Role Phone Daniele Perez Primary Care [...] Problem Status W/U Status Risk Notes Problem [id number] Prediabetes (R73.03) Active confirmed His fasting glucose has been 120 and then 116. He was concerned that he had prediabetes and we discussed this concept at length. I recommended aggressive follow-up as well as weight loss and a diet low in concentrated sweets. Vital Signs Temperature 97.2 degrees Fahrenheit 01/03/20 25 Blood pressure systolic 138 mm Hg 01/03/20 25 Blood pressure diastolic 58 mm Hg 025 Heart Rate 59 /min 01/02/2025 Height 68.5 in 01/02/2025 Weight 180 lbs 01/02/2025 BMI 26.97 kg/m2 01/02/2025 Encounters Encounter Location Date Provider Diagnosis Daniele Perez III, MD [address] [place] [address] [place] [address] 01/02/2025 Daniele Perez HTN (hypertension) I 10 ; Prediabetes R73.03 ; Former smoker Z87.891 ; Hyperlipidemia, unspecified hyperlipidemia type E78.5 ; Sensorineural hearing loss (SNHL) of left ear with unrestricted hearing of right ear H90.42 ; Erectile dysfunction, unspecified erectile dysfunction type N52.9 ; Peripheral arterial occlusive disease I77.9 ; Overweight (BMI 25.0-29.9) E66.3 ; Coronary artery disease involving coronary bypass graft of curyung heart without angina pectoris I25.810 ; Low [...] artery disease involving coronary bypass graft of curyung heart without angina pectoris (ICD-10 - I25.810) His stress test was quite positive, so he went occurred. Nares artery catheterization and then to coronary artery bypass surgery at [facility]. He recovered well without incident. He is [...] Scheduled, Cynthia son: Annual Exam Provider Name:Daniele Perez, 03/17/2025 02:00:00 PM, [address] [place] [address] [address] [place] [address], [place], [address], Progress Notes * YOUNG FLOYD CDOB:1955 (69 yo M)Acc No.[id number]:01/02/2025 Progress Notes Patient: OYUNG CRAIG Provider: Tawanna Perez MD :1955 A ge:69 Y S ex:Male Date:01/02/2025 Address:[address] [place] [address], [place] [id number] Subjective: * Chief Complaints: * H yperlipidemiaHearing lossHypertensionPeripheral arterial diseaseCoronary artery disease * HPI: C OVID-19 Screening: H e reports that he has had no angina [...] hernia repair 03/2015colonoscopy, negative, Dr. Daniele Alfaro, [facility]. 2019Angioplasty and atherectomy right superficial femoral [...] and diabetes. His mother of complications of FOOD SAFETY FIELD SPECIALIST surgery for benign disease. His sister [...] 2 healthy children. 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 He has [...] X10*3/uL) 0.000 (Ref Range: 0.0-0.012 X10*3/uL) * Lab:[facility]. Chanoe l Fast * Collection Date 12/31/2024 [...] artery disease involving coronary bypass graft of curyung heart without angina pectoris - I25.810 N otes :His stress test was quite positive, so he went occurred. Nares artery catheterization and then to coronary artery bypass surgery at [facility]. He recovered well without incident. He is [...] Perez MD Date: 0 01/02/2025 Generated for Kishore covarrubias/Valentin/Vijayasmitting on: 0 03/13/2025 06:19 AM EDT History and Physical Notes * [...]
--- OUTSIDE RECORDS SUMMARY | 2025-03-13 06:20 | XMS_ITS | Patient Health Record ---
Author Organization [facility] Address [address] [place] [address] Care Team Providers Care Collar Setter Overlock Name Role Phone NONE, NONE Primary Care Provider Daniele Carter Unavailable [phone] Reason For Referral No Information Medications Medication SIG (Take, Route, Fr equency, Duration) Notes Start Date End Date Status Aspir-81 81 MG 1 tablet Orally Once a day for 30 day(s) Active Immunizations Vaccine Route Administration Date Status Comme nts Influenza Unknown 08/13/2018 Refused Social History Tobacco Use: Social History Observation Description Date Details (start date - stop date) Never Smoker NA - NA Tobacco Use/Smoking Question Answer Notes Patient is a nonsmoker Alcohol Screen Question Answer Notes Did you have a drink contain ing alcohol in the past year? Yes How often did you have a dri nk containing alcohol in the past year? Monthly or less (1 point) How many drinks did you have on a typical day when you were drinking in the past year? 1 or 2 drinks (0 point) Points 1 Interpretation Negative Section Notes: Nonsmoker; occ alcohol Problems Problem Type SNOMED Code ICD Code Onset Dates Problem Status W/U Status Risk Notes Problem [id number] Encounter for screening for malignant neoplasm of colon (Z12.11) Active confirmed Problem 451584655625691 Preprocedural examination (Z01.818) Active confirmed Plan Of Treatment Pending Test Test Name Order Date GI BIOPSY 11/08/2018 Future Test Test Name Order Date COLONOSCOPY 08/13/2018 Insurance Providers Payer Name Payer Address Payer Phone Subscriber Number Group Number Insured Name Patient Relationship to Insured Coverage Start Date Coverage End Date [facility] [address] [facility] [place], [place] [phone] [id number] YOUNG FLOYD Self - patient is the insured Medical (General) History Medical History History ICD Code Denies [place],DM,CVA,Lung disease,renal dise ase Colonoscopy 12/2007 hyperplastic polyps, diverticulosis, internal hemorrhoids Surgical History Surgery Date(Month/Year) Cholecystectomy Vasectomy
[2025-03-13 06:33] LABS: MANUAL DIFF FLAG NO
[2025-03-13 07:36] LABS: Hematocrit 37.8 % (42.0-52.0); Hemoglobin 12.5 g/dl (14.0-18.0); Imm Gran Abs Auto 0.02 X10*3/uL (0.00-0.03); Imm Gran Pct Auto 0.3 % (0.0-0.4); Lymphocytes Absolute Auto 2.0 X10*3/uL (1.2-4.9); Mean Corpuscular HGB Conc 33.1 g/dl (31.0-36.0); Mean Corpuscular Hemoglobin 28.2 pg (27.0-33.0); Mean Corpuscular Volume 85.1 fL (80.0-98.0); NRBC Abs Auto 0.000 X10*3/uL (0.0-0.012); NRBC Pct Auto 0.0 /100WBC (0.0-0.2); Platelet Count 158 X10*3/uL (160-400); Red Blood Count 4.44 X10*6/uL (4.60-5.80); White Blood Count 6.6 X10*3/uL (4.8-10.8)
[2025-03-13 07:43] LABS: Hemoglobin A1C 139.5969 umol/L; Total Hemoglobin (HGBA1C) 3346.2193 umol/L
[2025-03-13 08:00] LABS: Alanine Aminotransferase 51 U/L (0-40); Albumin Level 4.1 g/dL (3.5-5.0); Alkaline Phosphatase 95 U/L (39-117); Anion Gap 10 (12-20); Aspartate Amino Transferase 38 U/L (5-37); Blood Urea Nitrogen 30 mg/dL (9-16); Calcium 9.0 mg/dL (8.4-10.2); Carbon Dioxide 27 mmol/L (22-29); Chloride 108 mmol/L (96-108); Cholesterol 121 mg/dL (<200); Estimated Glomerular Filt Rate 46; HDL Cholesterol 43 mg/dL (>40); Potassium 4.8 mmol/L (3.3-5.1); Sodium 140 mmol/L (135-145); Total Protein 6.9 g/dL (6.5-8.0); Triglycerides 56 mg/dL (<150); Uric Acid 9.2 mg/dL (3.4-7.0)
== END 2025-03-13 06:17 | disposition home or self-care (01) ==
LOC: HO.LAB 06:16
PROVIDERS: PCP Internal Medicine Medical Oncology; Visit Provider Internal Medicine Medical Oncology
DX: I10 Essential (primary) hypertension (principal); R73.03 Prediabetes; M10.9 Gout, unspecified; E66.3 Overweight
CPT/HCPCS: 36415; 80053; 80061; 83036; 84550; 85025

== ENCOUNTER 2025-07-13 06:19 | Outpatient (REF) | payer MEDICARE, SELFPAY ==
--- OUTSIDE RECORDS SUMMARY | 2024-04-09 05:16 | XMS_ITS ---
Author Organization Daniele Perez III, MD Address [address] [place] [address] [place] [address] Care Team Providers Care Oracle Application Consultant Name Role Phone Dr. Daniele Perez III Primary Care Provider Reason For Referral Reason Consult and Treat Bilateral Hip Pain Diagnosis 1 Pain in left hip (M2 5.552) Diagnosis 2 Pain in right hip (M 25.551) Referral Organization Daniele Perez III, MD Referring Provider First Name Daniele Referring Provider Last Name Ana Referring Provider Speciality Internal M edicine Referred Organization [facility] Referred Provider David Shelton Referred Address [address] [place] [address],[place], [place],[id number], Referred Provider Specialty Vascular [place] General Notes Cece Mancini 2023 01:10:29 PM EDT > Referral was faxed with telehealth encounter., Cece Mancini 04/15/2024 01:12:06 PM EDT > Patient called questioning if the referral has been sent over and if we had called to make him an appointment. Patient was notified that the referral was sent and would be contacted by Dr. Ordaz office to schedule the appointment. Patient was also given the telephone number to contact their office. Referral Priority Routine Referral Appointment Date 05/01/2024 REASON FOR VISIT Hip Pain Social History Sex Assigned At : Social History Observation Description Sex Assigned At Male Encounters Encounter Location Date Provider Diagnosis Danieel Perez III, MD [address] [place] [address] [place] [address] 04/09/2024 Daniele Perez Plan Of Treatment Referrals Referral Date Details 04/09/2024 04/09/2024, Consult and Treat Bilateral Hip Pain, David Shelton, [address] [facility], [place], [phone], Next Appt Details Provider Name:Daniele Frost Ana , 07/15/2025 02:30:00 PM, [address] [place] [address] [address], [place], [address], Provider Name:Daniele Perez , 03/19/2026 02:00:00 PM, [address] [place] [address] [address], [place], [address], Progress Notes * YOUNG DINERO CDOB:1955 (68 yo M)Acc No.[id number]:04/09/2024 Patient: YOUNG CRAIG Miguel :1955 A ge:68 Y S ex:Male Address:[address] [place] [address] [place], [id number] Subjective: * Chief Complaints: * H ip Pain * Medical History: * Surgical History: * Hospitalization/Major Diagno stic Procedure: * Medications: Objective: Assessment: Plan: * Treatment: * Procedure Codes: * true * Date: Generated for Kishore covarrubias/Valentin/eTgabriellesmitting on: 09/13/2024 06:23 AM EST Consultation Request Notes Referral Date Referring Provider Referred Provider Not selam 04/09/2024 Daniele Perez Sandip Consult and Tr eat Bilateral Hip Pain
--- OUTSIDE RECORDS SUMMARY | 2024-06-11 05:03 | XMS_ITS ---
Author Organization Daniele Perez III, MD Address [address] [place] [address] [place] [address] Care Team Providers Care Duck Farmer Name Role Phone Dr. Daniele Perez III Primary Care Provider REASON FOR VISIT ? Rx Social History Sex Assigned At : Social History Observation Description Sex Assigned At Male Encounters Encounter Location Date Provider Diagnosis Daniele Perez III, MD [address] [place] [address] [place] [address] 06/11/2024 Daniele Perez Plan Of Treatment Next Appt Details Provider Name:Daniele Perez , 07/15/2025 02:30:00 PM, [address] [place] [address] [place], [address], Provider Name:Daniele Perez , 03/19/2026 02:00:00 PM, [address] [place] [address] [place], [address], Progress Notes * YOUNG DINERO CDOB:1955 (69 yo M)Acc No.[id number]:06/11/2024 Patient: YOUNG CRAIG Miguel :1955 A ge:69 Y S ex:Male Address:[address] [place] [address] [place] [address] * true * Date: Generated for Printi ng/Faxing/eTransmitting on: 09/13/2024 06:25 AM EST
--- OUTSIDE RECORDS SUMMARY | 2024-07-16 10:30 | XMS_ITS ---
Author Organization Daniele Perez III, MD Address [address] [place] [address] [place] [address] Care Team Providers Care Manager Operational Name Role Phone Dr. Daniele Perez III Primary Care Provider [phone] Allergies Allergen (clinical drug ingredient) Drug/Non Drug Allergy documented on EMR Reaction Allergy Type Onset Date Status No Known Drug Allergy Unknown Drug Allergy Active REASON FOR VISIT Right groin pain, Hyperlipidemia, Hearing loss, Hypertension, Coronary artery disease, Right shoulder pain Medications Medication SIG (Take, Route, Frequency, Duration) Notes Start Date End Date Status Diclofenac Sodium 1 % APPLY SMALL AMOUNT TO AREA THREE TIMES DAILY NEEDED FOR PAIN External Active Aspirin 81 81 MG 1 tablet Orally Once a day Active Celecoxib 200 MG Oral Act александр Clopidogrel Bisulfate 75 MG Oral Active Metoprolol Tartrate 75 MG Oral Active hydroCHLOROthiazide 25 MG Oral Active Atorvastatin Calcium 40 MG TAKE 1 TABLET BY MOUTH AT BEDTIME Oral Active Lisinopril 10 MG Oral Act александр amLODIPine Besylate 10 MG Oral Active Social History Tobacco Use: Social History Observation Description Date Details (start date - stop date) Former Smoker NA - NA Sex Assigned At : Social History Observation Description Sex Assigned At Male Tobacco Use/Smoking Question Answer Notes Patient is a former smoker How long has it been since you last smoked? > 10 years Additional Findings: Tobacco Non-User Ex-cigaret te smoker Problems Problem Type SNOMED Code ICD Code Onset Dates Problem Status W/U Status Risk Notes Problem 861719418 Overweight (E66.3) Active confirmed His body mass index is 27. He has lost a couple of pounds. We discussed his weight loss strategy today and his diet and nutrition. We made a plan to lose weight at a rate of one half of a pound per week. Vital Signs Temperature 97.4 degrees Fahrenheit 07/16/20 24 Blood pressure systolic 135 mm Hg 07/16/20 24 Blood pressure diastolic 65 mm Hg 024 Heart Rate 58 /min 07/16/2024 Height 68.5 in 07/16/2024 Weight 181 lbs 07/16/2024 BMI 27.12 kg/m2 07/16/2024 Encounters Encounter Location Date Provider Diagnosis Daniele Perez III, MD [address] [place] [address] [place] [address] 07/16/2024 Daniele Perez HTN (hypertension) I 10 ; Coronary artery disease involving coronary bypass graft of teller heart without angina pectoris I25.810 ; Overweight E66.3 ; Hyperuricemia E79.0 ; Hyperlipidemia, unspecified hyperlipidemia type E78.5 ; Former smoker Z87.891 ; Sensorineural hearing loss (SNHL) of left ear with unrestricted hearing of right ear H90.42 ; Peripheral arterial occlusive disease I77.9 and Right groin pain R10.31 Assessments Encounter Date Diagnosis (ICD Code) Assessment Notes Treat ment Notes Treatment Clinical Notes 07/16/2024 HTN (hypertension) (ICD-10 - I10) His blood pressure today is within normal limits. I recommended sodium restriction, but no change in his regimen was necessary. He wants to control his blood pressure and reduce it with lifestyle modification. We discussed this issue at length. 07/16/2024 Coronary artery disease involving coronary bypass graft of teller heart without angina pectoris (ICD-10 - I25.810) His stress test was quite positive, so he went occurred. Nares artery catheterization and then to coronary artery bypass surgery at [facility]. He recovered well without incident. He is no longer in atrial fibrillation. His medications were reviewed with him. His echocardiogram showed good cardiac function. Aggressive risk reduction is in place. 07/16/2024 Overweight (ICD-10 - E66.3) His body mass index is 27. He has lost a couple of pounds. We discussed his weight loss strategy today and his diet and nutrition. We made a plan to lose weight at a rate of one half of a pound per week. 07/16/2024 Hyperuricemia (ICD-10 - E79.0) Value will be repeated. He will hydrate. Has had no attacks of gout so far. 07/16/2024 Hyperlipidemia, unspecified hyperlipidemia type (ICD-10 - E78.5) His lipids are stable and controlled. He is compliant with medication and has no side effects. 07/16/2024 Former smoker (ICD-10 - Z87.891) He is highly motivated not to smoke. We discussed strategies for prevention of relapse in times of stress and illness. 07/16/2024 Sensorineural hearing loss (SNHL) of left ear with unrestricted hearing of right ear (ICD-10 - H90.42) He has been referred to ENT in the past and had hearing tests. If this symptom worsens. He will return. 07/16/2024 Peripheral arterial occlusive disease (ICD-10 - I77.9) He has no claudication but decreased pulses in the left leg. This will be observed along with vascular surgery. 07/16/2024 Right groin pain (ICD-10 - R10.31) He will continue to use the medication given to him by rehabilitation. He will also use heat and rest. Plan Of Treatment Medication Medication Name Sig Start Date Stop Date Notes Diclofenac Sodium 1 % APPLY SMALL AMOUNT TO AREA THREE TIMES DAILY NEEDED FOR PAIN External Aspirin 81 81 MG 1 tablet Orally Once a day Celecoxib 200 MG Oral Clopidogrel Bisulfate 75 MG Oral Metoprolol Tartrate 75 MG Oral hydroCHLOROthiazide 25 MG Oral Atorvastatin Calcium 40 MG TAKE 1 TABLET BY MOUTH AT BEDTIME Oral Lisinopril 10 MG Oral amLODIPine Besylate 10 MG Oral Pending Test Test Name Order Date PROFILE, FASTING (COMPREHENSIVE METABOLI C) 07/16/2024 Uric Acid 07/16/2024 Next Appt Details Follow Up: 2 Weeks, After antoinette, Reason: OV, To review lab results and monitor kidney function Provider Name:Daniele Perez , 07/15/2025 02:30:00 PM, [address] [place] [address] [address], [place], [phone], Provider Name:Daniele Perez , 03/19/2026 02:00:00 PM, [address] [place] [address] [address], [place], [phone], Progress Notes * YOUNG DINERO CDOB:1955 (69 yo M)Acc No.[id number]:07/16/2024 Progress Notes Patient: YOUNG CRAIG Provider: Tawanna Perez MD :1955 A ge:69 Y S ex:Male Date:07/16/2024 Address:[address] [place] [address], [place] [address] [id number] Subjective: * Chief Complaints: * R ight groin painHyperlipidemiaHearing lossHypertensionCoronary artery diseaseRight shoulder pain * HPI: * : The patient, a 69-year-old male, presented with a complaint of pain in his right groin that began a couple of weeks ago. The pain has been progressively getting worse. The patient reported that the pain was more intense at the beginning, then subsided, but worsened again after he exerted himself over the weekend. The patient was involved in physical activities such as stretching and lifting, which he was not accustomed to. The patient also reported a history of lower back pain for which he was taking Diclofenac. The patient also reported a history of hernia. The patient also reported feeling exhausted after playing with his dog, which he attributed to the beta blockers he was taking.He was seen recently at [facility] spine and sports or he was examining given a medication for the groin pain. Is beginning to improve. He was told it was a sore muscle. * ROS: G eneral/Constitutional: Admits p ain, R ight groin with walking or lifting leg.?Chills d enies. F atigue a dmits. F ever d enies. E NT: Decreased hearing i n both ears. R espiratory: Cough d enies. C ardiovascular: Chest pain with exertion d enies. D yspnea on exertion?denies. S hortness of breath d enies. G astrointestinal: Constipation o ccasional. D ecreased appetite d enies. D iarrhea d enies. H eartburn o ccasional. N ausea d enies. R ectal bleeding d enies. V omiting d enies. H ematology: bruising d enies. p etechiae d enies. S wollen glands n one have been noted. M en Only: Admits Monika bray. G enitourinary: Frequent urination o nce a night. M usculoskeletal: Muscle aches d enies. P ainful joints d enies. S ciatica d enies. W eakness d enies. S kin: Itching d enies. R baudilio d enies. S kin lesion(s)?denies. N eurologic: Difficulty speaking d enies. D izziness d enies.?Headache d enies. L ow back pain d enies. P sychiatric: Depressed mood d enies. * Medical History: * Surgical History: a ppendectomy vasectomy bilateral inguinal hernia repair 03/2015colonoscopy, negative, Dr. Daniele Alfaro, [facility]. 2019Angioplasty and atherectomy right superficial femoral artery oronary artery bypass grafting x3 11/2012Triple Bi-pass Surgery 11/17/2022No history * Hospitalization/Major Diagno stic Procedure: N o history * Family History: F ather: 62 yrs, diagnosed with CVD, DM. M other: 49 yrs. S on(s): alive. S iblings: alive. 1 sister(s) . 1 son(s) , 1 daughter(s) - healthy. . His father of coronary artery disease and diabetes. 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 His sister has had a hip replacement after fracture and of complications from that. His sister had cryptogenic hepatic cirrhosis. He has a son and a daughter, Pavan and Nia, who are healthy and well. * Social History: T obacco Use: T obacco Use/Smoking P atient is a f ormer smoker H ow long has it been since you last smoked??> 10 years A dditional Findings: Tobacco Non-User E x-cigarette smoker Monika ricardo has been to Anahi for 35 years. They have 2 healthy children. 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 He has no toxic exposures. * Medications: T akingAspirin 81 81 MG Tablet Delayed Release 1 tablet Orally Once a day Metoprolol Tartrate 75 MG Tablet Oral Clopidogrel Bisulfate 75 MG Tablet Oral Atorvastatin Calcium 40 MG Tablet TAKE 1 TABLET BY MOUTH AT BEDTIME Oral hydroCHLOROthiazide 25 MG Tablet Oral Lisinopril 10 MG Tablet Oral amLODIPine Besylate 10 MG Tablet Oral Diclofenac Sodium 1 % Gel APPLY SMALL AMOUNT TO AREA THREE TIMES DAILY NEEDED FOR PAIN External Celecoxib 200 MG Capsule Oral Medication List reviewed and reconciled with the patientTaking Aspirin 81 81 MG Tablet Delayed Release 1 tablet Orally Once a day Taking Metoprolol Tartrate 75 MG Tablet Oral Taking Clopidogrel Bisulfate 75 MG Tablet Oral Taking Atorvastatin Calcium 40 MG Tablet TAKE 1 TABLET BY MOUTH AT BEDTIME Oral Taking hydroCHLOROthiazide 25 MG Tablet Oral Taking Lisinopril 10 MG Tablet Oral Taking amLODIPine Besylate 10 MG Tablet Oral Taking Diclofenac Sodium 1 % Gel APPLY SMALL AMOUNT TO AREA THREE TIMES DAILY NEEDED FOR PAIN External Taking Celecoxib 200 MG Capsule Oral Medication List reviewed and reconciled with the patient * Allergies: N o Known Drug Allergyno[Allergies Verified] Objective: * Vitals: H t: 68.5, Wt:181, BMI:27.12, BP:135/65, HR:58, Temp:97.4, Wt-k.1. * P ast Orders: Lab:Complete Blood Count Aut o Diff * Collection Date 07/09/2024 01/10/2024 10/01/2023 Collection Time 06:28 AM 06:18 AM 06:12 AM Order Date 07/09/2024 01/10/2024 10/01/2023 White Blood Count 6.3 (Ref Range: 4.8-10.8 X10*3/uL) 7.2 (Ref Range: 4.8-10.8 X10*3/uL) 6.2 (Ref Range: 4.8-10.8 X10*3/uL) Red Blood Count 4.50 L (Ref Range: 4.60-5.80 X10*6/uL) 4.43 L (Ref Range: 4.60-5.80 X10*6/uL) 4.65 (Ref Range: 4.60-5.80 X10*6/uL) Hemoglobin 12.7 L (Ref Range: 14.0-18.0 g/dl) 12.8 L (Ref Range: 14.0-18.0 g/dl) 13.3 L (Ref Range: 14.0-18.0 g/dl) Hematocrit 38.3 L (Ref Range: 42.0-52.0 %) 37.9 L (Ref Range: 42.0-52.0 %) 39.4 L (Ref Range: 42.0-52.0 %) Mean Corpuscular Volume 85.1 (Ref Range: 80.0-98.0 fL) 85.6 (Ref Range: 80.0-98.0 fL) 84.7 (Ref Range: 80.0-98.0 fL) Mean Corpuscular Hemoglobin 28.2 (Ref Range: 27.0-33.0 pg) 28.9 (Ref Range: 27.0-33.0 pg) 28.6 (Ref Range: 27.0-33.0 pg) Mean Corpuscular HGB Conc 33.2 (Ref Range: 31.0-36.0 g/dl) 33.8 (Ref Range: 31.0-36.0 g/dl) 33.8 (Ref Range: 31.0-36.0 g/dl) Red Cell Distribution Width 13.2 (Ref Range: 11.0-16.0 %) 13.2 (Ref Range: 11.0-16.0 %) 13.1 (Ref Range: 11.0-16.0 %) Platelet Count 152 L (Ref Range: 160-400 X10*3/uL) 149 L (Ref Range: 160-400 X10*3/uL) 150 L (Ref Range: 160-400 X10*3/uL) Mean Platelet Volume 10.5 (Ref Range: 9.4-12.4 fL) 10.5 (Ref Range: 9.4-12.4 fL) 10.3 (Ref Range: 9.4-12.4 fL) Neutrophils Percent Auto 45.9 (Ref Range: 45-73 %) 49.6 (Ref Range: 45-73 %) 45.1 (Ref Range: 45-73 %) Imm Gran Pct Auto 0.2 (Ref Range: 0.0-0.4 %) 0.4 (Ref Range: 0.0-0.4 %) 0.2 (Ref Range: 0.0-0.4 %) Lymphocytes Percent Auto 36.1 (Ref Range: 20-40 %) 35.1 (Ref Range: 20-40 %) 39.7 (Ref Range: 20-40 %) Monocytes Percent Auto 10.5 (Ref Range: 2-11 %) 9.6 (Ref Range: 2-11 %) 9.1 (Ref Range: 2-11 %) Eosinophils Percent Auto 6.8 H (Ref Range: 0-4 %) 4.7 H (Ref Range: 0-4 %) 5.2 H (Ref Range: 0-4 %) Basophils Percent Auto 0.5 (Ref Range: 0-2 %) 0.6 (Ref Range: 0-2 %) 0.7 (Ref Range: 0-2 %) NRBC Pct Auto 0.0 (Ref Range: 0.0-0.2 /100WBC) 0.0 (Ref Range: 0.0-0.2 /100WBC) 0.0 (Ref Range: 0.0-0.2 /100WBC) Neutrophils Absolute Auto 2.9 (Ref Range: 2.0-8.3 x10*3/uL) 3.6 (Ref Range: 2.0-8.3 x10*3/uL) 2.8 (Ref Range: 2.0-8.3 x10*3/uL) Imm Gran Abs Auto 0.01 (Ref Range: 0.00-0.03 X10*3/uL) 0.03 (Ref Range: 0.00-0.03 X10*3/uL) 0.01 (Ref Range: 0.00-0.03 X10*3/uL) Lymphocytes Absolute Auto 2.3 (Ref Range: 1.2-4.9 X10*3/uL) 2.5 (Ref Range: 1.2-4.9 X10*3/uL) 2.4 (Ref Range: 1.2-4.9 X10*3/uL) Monocytes Absolute Auto 0.7 (Ref Range: 0.1-1.2 X10*3/uL) 0.7 (Ref Range: 0.1-1.2 X10*3/uL) 0.6 (Ref Range: 0.1-1.2 X10*3/uL) Eosinophils Absolute Auto 0.4 (Ref Range: 0.0-0.4 X10*3/uL) 0.3 (Ref Range: 0.0-0.4 X10*3/uL) 0.3 (Ref Range: 0.0-0.4 X10*3/uL) Basophils Absolute Auto 0.0 (Ref Range: 0.0-0.2 X10*3/uL) 0.0 (Ref Range: 0.0-0.2 X10*3/uL) 0.0 (Ref Range: 0.0-0.2 X10*3/uL) NRBC Abs Auto 0.000 (Ref Range: 0.0-0.012 X10*3/uL) 0.000 (Ref Range: 0.0-0.012 X10*3/uL) 0.000 (Ref Range: 0.0-0.012 X10*3/uL) * Lab:Comprehensive [place]. Chanoe l Fast * Collection Date 07/09/2024 01/10/2024 10/01/2023 Collection Time 06:28 AM 06:18 AM 06:12 AM Order Date 07/09/2024 01/10/2024 10/01/2023 Sodium 140 (Ref Range: 135-145 mmol/L) 140 (Ref Range: 135-145 mmol/L) 140 (Ref Range: 135-145 mmol/L) Bilirubin Total 0.6 (Ref Range: 0.0-1.0 mg/dL) 0.4 (Ref Range: 0.0-1.0 mg/dL) 0.4 (Ref Range: 0.0-1.0 mg/dL) Aspartate Amino Transferase 40 H (Ref Range: 5-37 U/L) 17 (Ref Range: 5-37 U/L) 18 (Ref Range: 5-37 U/L) Alanine Aminotransferase 44 H (Ref Range: 0-40 U/L) 16 (Ref Range: 0-40 U/L) 15 (Ref Range: 0-40 U/L) Total Protein 6.8 (Ref Range: 6.5-8.0 g/dL) 6.7 (Ref Range: 6.5-8.0 g/dL) 6.7 (Ref Range: 6.5-8.0 g/dL) Albumin Level 4.0 (Ref Range: 3.5-5.0 g/dL) 3.9 (Ref Range: 3.5-5.0 g/dL) 3.9 (Ref Range: 3.5-5.0 g/dL) Alkaline Phosphatase 92 (Ref Range: 39-117 U/L) 72 (Ref Range: 39-117 U/L) 77 (Ref Range: 39-117 U/L) Potassium 4.7 (Ref Range: 3.3-5.1 mmol/L) 4.7 (Ref Range: 3.3-5.1 mmol/L) 4.7 (Ref Range: 3.3-5.1 mmol/L) Chloride 109 H (Ref Range: 96-108 mmol/L) 107 (Ref Range: 96-108 mmol/L) 108 (Ref Range: 96-108 mmol/L) Carbon Dioxide 25 (Ref Range: 22-29 mmol/L) 26 (Ref Range: 22-29 mmol/L) 26 (Ref Range: 22-29 mmol/L) Anion Gap 11 L (Ref Range: 12-20) 12 (Ref Range: 12-20) 11 L (Ref Range: 12-20) Blood Urea Nitrogen 33 H (Ref Range: 9-16 mg/dL) 29 H (Ref Range: 9-16 mg/dL) 30 H (Ref Range: 9-16 mg/dL) Creatinine 1.63 H (Ref Range: 0.5-1.4 mg/dL) 1.35 (Ref Range: 0.5-1.4 mg/dL) 1.35 (Ref Range: 0.5-1.4 mg/dL) Estimated Glomerular Filt Rate 42 52 52 Glucose Fasting 121 H (Ref Range: 60-99 mg/dL) 108 H (Ref Range: 60-99 mg/dL) 109 H (Ref Range: 60-99 mg/dL) Calcium 9.5 (Ref Range: 8.4-10.2 mg/dL) 9.5 (Ref Range: 8.4-10.2 mg/dL) 9.0 (Ref Range: 8.4-10.2 mg/dL) * Lab:Lipid Panel * Collection Date 07/09/2024 01/10/2024 10/01/2023 Collection Time 06:28 AM 06:18 AM 06:12 AM Order Date 07/09/2024 01/10/2024 10/01/2023 Triglycerides 73 (Ref Range: <150 mg/dL) 61 (Ref Range: <150 mg/dL) 54 (Ref Range: <150 mg/dL) Cholesterol 130 (Ref Range: <200 mg/dL) 141 (Ref Range: <200 mg/dL) 139 (Ref Range: <200 mg/dL) LDL Cholesterol Calculated 69 (Ref Range: <100 mg/dL) 81 (Ref Range: <100 mg/dL) 80 (Ref Range: <100 mg/dL) HDL Cholesterol 47 (Ref Range: >40 mg/dL) 48 (Ref Range: >40 mg/dL) 49 (Ref Range: >40 mg/dL) * Lab:Prostate Specific Antige n * Collection Date 07/09/2024 10/01/2023 11/03/2022 Collection Time 06:28 AM 06:12 AM 09:13 AM Order Date 07/09/2024 10/01/2023 11/03/2022 Prostate Specific Antigen 0.94 (Ref Range: <0.05-4.0 ng/mL) 0.80 (Ref Range: <0.05-4.0 ng/mL) 1.70 (Ref Range: <0.05-4.0 ng/mL) * Imaging:US arterial duplex B I w/ ANTONY * Performed Date 04/22/2024 10/30/2023 09:00 AM 01:44 PM Order Date 04/22/2024 10/30/2023 * Examination: G eneral Examination: GENERAL APPEARANCE: p leasant, well nourished, well developed, in no acute distress, calm and relaxed, overweight, man. HEAD: a traumatic, normocephalic. EYES: e ascencion, perrla, anicteric, conjugate. EARS: N ormal anatomy with bilateral hearing loss. NOSE: s eptum intact. ORAL CAVITY: n ormal, unremarkable. NECK/THYROID: n o jugular venous distention, no carotid bruit, thyroid normal. LYMPH NODES: n o enlarged lymph nodes,spleen normal. SKIN: n o suspicious lesions, anicteric. HEART: n o clicks, gallops, murmurs, or rubs, regular rhythm, S1, S2 normal, no s3, or vascular bruits. LUNGS: , diminished breath sounds throughout, no wheezes, rales, rhonchi, good air movement. BREASTS: no masses palpable bilaterally. ABDOMEN: b owel sounds normal, no ascites, no organomegaly, no mass. RECTAL EXAM: n ot examined. MUSCULOSKELETAL: e xtremities unremarkable, no clubbing, cyanosis or edema, Decreased range of motion both shoulders neck and lumbar spine. PERIPHERAL PULSES: n ormal. NEUROLOGIC: a lert and oriented, cranial nerves 2-12 grossly intact, deep tendon reflexes 2+ symmetrical, motor strength normal upper and lower extremities, sensory exam intact. PSYCH: a lert, oriented. Assessment: * Assessment: 1. C oronary artery disease involving coronary bypass graft of teller heart without angina pectoris - I25.810 (Primary) N otes :His stress test was quite positive, so he went occurred. Nares artery catheterization and then to coronary artery bypass surgery at [facility]. He recovered well without incident. He is no longer in atrial fibrillation. His medications were reviewed with him. His echocardiogram showed good cardiac function. Aggressive risk reduction is in place. 2 . H TN (hypertension) - I10 N otes :His blood pressure today is within normal limits. I recommended sodium restriction, but no change in his regimen was necessary. He wants to control his blood pressure and reduce it with lifestyle modification. We discussed this issue at length. 3 . O verweight - E66.3 N otes :His body mass index is 27. He has lost a couple of pounds. We discussed his weight loss strategy today and his diet and nutrition. We made a plan to lose weight at a rate of one half of a pound per week. 4 . H yperuricemia - E79.0 N otes :Value will be repeated. He will hydrate. Has had no attacks of gout so far. 5 . H yperlipidemia, unspecified hyperlipidemia type - E78.5 N otes :His lipids are stable and controlled. He is compliant with medication and has no side effects. 6 . F ormer smoker - Z87.891 N otes :He is highly motivated not to smoke. We discussed strategies for prevention of relapse in times of stress and illness. 7 . S ensorineural hearing loss (SNHL) of left ear with unrestricted hearing of right ear - H90.42 N otes :He has been referred to ENT in the past and had hearing tests. If this symptom worsens. He will return. 8 . P eripheral arterial occlusive disease - I77.9 N otes :He has no claudication but decreased pulses in the left leg. This will be observed along with vascular surgery. 9 . R ight groin pain - R10.31 N otes :He will continue to use the medication given to him by rehabilitation. He will also use heat and rest. Plan: * Treatment: 2. O verweight L AB: PROFILE, FASTING (COMPREHENSIVE METABOLIC) L AB: Uric Acid 3. H yperuricemia L AB: PROFILE, FASTING (COMPREHENSIVE METABOLIC) L AB: Uric Acid * Procedure Codes: * Preventive Medicine: Counseling: C are goal follow-up plan: Counseling for abnormal BMI given Y es Above Normal BMI Follow-up D ietary management education, guidance, and counseling, Dietary needs education S moking/Tobacco Use Patient counseled on the dangers of tobacco use and urged to quit. 1 09/16/2023 * Follow Up: 2 Weeks, After Lester (Reason: OV, To review lab results and monitor kidney function) * Images: * Sign off status: Completed true * Provider: Tawanna Perez MD Date: 09/16/2023 Generated for Kishore covarrubias/Valentin/eTransmitting on: 09/13/2024 06:24 AM EST History and Physical Notes * Examination Category Sub-Category Detail Notes General Examination GENERAL APPEARANCE: pleasant , well nourished, well developed, in no acute distress, calm and relaxed, overweight, man HEAD: atraumatic, normocep halic EYES: eomi, perrla, anicte jeison, conjugate EARS: Normal anatomy with bilateral hearing loss NOSE: septum intact NECK/THYROID: no jugular venous di stention, no carotid bruit, thyroid normal HEART: no clicks, gallops, murmurs, or rubs, regular rhythm, S1, S2 normal, no s3, or vascular bruits LUNGS: , diminished breath sounds throughout, no wheezes, rales, rhonchi, good air movement ABDOMEN: bowel sounds normal, no ascites, no organomegaly, no mass NEUROLOGIC: alert and oriented, cranial nerves 2-12 grossly intact, deep tendon reflexes 2+ symmetrical, motor strength normal upper and lower extremities, sensory exam intact SKIN: no suspicious lesion s, anicteric PERIPHERAL PULSES: normal BREASTS: no masses palpable b ilaterally MUSCULOSKELETAL: extremities unremark able, no clubbing, cyanosis or edema, Decreased range of motion both shoulders neck and lumbar spine LYMPH NODES: no enlarged lymph no hattie,spleen normal RECTAL EXAM: not examined PSYCH: alert, oriented ORAL CAVITY: normal, unremarkable
--- OUTSIDE RECORDS SUMMARY | 2024-08-04 10:00 | XMS_ITS ---
Author Organization Daniele Perez III, MD Address [address] [place] [address] [place] [address] Care Team Providers Care Convict Guard Name Role Phone Dr. Daniele Perez III Primary Care Provider Allergies Allergen (clinical drug ingredient) Drug/Non Drug Allergy documented on EMR Reaction Allergy Type Onset Date Status No Known Drug Allergy Unknown Drug Allergy Active REASON FOR VISIT Right groin pain, Hyperlipidemia, Hearing loss, Hypertension, Peripheral arterial disease, Hyperuricemia, Right shoulder pain, Coronary artery disease Medications Medication SIG (Take, Route, Frequency, Duration) Notes Start Date End Date Status hydroCHLOROthiazide 25 MG Oral Active Celecoxib 200 MG Oral Act александр Diclofenac Sodium 1 % APPLY SMALL AMOUNT TO AREA THREE TIMES DAILY NEEDED FOR PAIN External Active amLODIPine Besylate 10 MG Oral Active Lisinopril 10 MG Oral Act александр Aspirin 81 81 MG 1 tablet Orally Once a day Active Atorvastatin Calcium 40 MG TAKE 1 TABLET BY MOUTH AT BEDTIME Oral Active Clopidogrel Bisulfate 75 MG Oral Active Metoprolol Tartrate 75 MG Oral Active Social History Tobacco Use: [...] Additional Findings: Tobacco Non-User Ex-cigaret te smoker Vital Signs Temperature 97.0 degrees Fahrenheit 08/04/20 24 Blood pressure systolic 145 mm Hg 08/04/20 24 Blood pressure diastolic 68 mm Hg 024 Heart Rate 65 /min 08/04/2024 Height 68.5 in 08/04/2024 Weight 191 lbs 08/04/2024 BMI 28.62 kg/m2 08/04/2024 Encounters Encounter Location Date Provider Diagnosis Daniele Perez III, MD [address] [place] [address] [place] [id number] 08/04/2024 Daniele Perez HTN (hypertension) I 10 ; Right groin pain R10.31 ; Former smoker Z87.891 ; Non-recurrent bilateral inguinal hernia without obstruction or gangrene K40.20 ; Sensorineural hearing loss (SNHL) of left ear with unrestricted hearing of right ear H90.42 ; Hyperlipidemia, unspecified hyperlipidemia type E78.5 ; Overweight (BMI 25.0-29.9) E66.3 ; Peripheral arterial occlusive disease I77.9 and Tendinosis of right shoulder M67.813 Assessments Encounter Date Diagnosis (ICD Code) Assessment Notes Treat ment Notes Treatment Clinical Notes 08/04/2024 HTN (hypertension) (ICD-10 - I10) His blood pressure today is within normal limits. I recommended sodium restriction, but no change in his regimen was necessary. He wants to control his blood pressure and reduce it with lifestyle modification. We discussed this issue at length. 08/04/2024 Right groin pain (ICD-10 - R10.31) This seems to be muscular in origin and not a hernia. Will be observed carefully. He will use heat and acetaminophen. 08/04/2024 Former smoker (ICD-1 0 - Z87.891) He is highly motivated not to smoke. We discussed strategies for prevention of relapse in times of stress and illness. 08/04/2024 Non-recurrent bilateral inguinal hernia without obstruction or gangrene (ICD-10 - K40.20) The hernias have been repaired and are not returning. 08/04/2024 Sensorineural hearin g loss (SNHL) of left ear with unrestricted hearing of right ear (ICD-10 - H90.42) He has been referred to ENT in the past and had hearing tests. If this symptom worsens. He will return. 08/04/2024 Hyperlipidemia, unspecified hyperlipidemia type (ICD-10 - E78.5) His lipids are stable and controlled. He is compliant with medication and has no side effects.His total cholesterol is currently 130. No changes in his regimen are needed. 08/04/2024 Overweight (BMI 25.0-29.9) (ICD-10 - E66.3) His body mass index is 28.6. We discussed lifestyle modifications are way to reduce cardiac risk factors. I recommended a diet low in sodium and calories combined with regular activity. 08/04/2024 Peripheral arterial occlusive disease (ICD-10 - I77.9) He has no claudication but decreased pulses in the left leg. This will be observed along with vascular surgery. 08/04/2024 Tendinosis of right shoulder (ICD-10 - M67.813) Plan Of Treatment Medication Medication Name Sig Start Date Stop Date Notes hydroCHLOROthiazide 25 MG Oral Celecoxib 200 MG Oral Diclofenac Sodium 1 % APPLY SMALL AMOUNT TO AREA THREE TIMES DAILY NEEDED FOR PAIN External amLODIPine Besylate 10 MG Oral Lisinopril 10 MG Oral Aspirin 81 81 MG 1 tablet Orally Once a day Atorvastatin Calcium 40 MG TAKE 1 TABLET BY MOUTH AT BEDTIME Oral Clopidogrel Bisulfate 75 MG Oral Metoprolol Tartrate 75 MG Oral Next Appt Details Follow Up: 2 Weeks, In two w eeks, Reason: ov BP check no tests, Check blood pressure and review medications Provider Name:Daniele Perez , 07/15/2025 02:30:00 PM, [address] [place] [address] [address], [place], [id number], Provider Name:Daniele Perez , 03/19/2026 02:00:00 PM, [address] [place] [address] [address], [place], [id number], Progress Notes * YOUNG DINERO CDOB:1955 (69 yo M)Acc No.[id number]:08/04/2024 Progress Notes Patient: YOUNG CRAIG Provider: Tawanna Perez MD :1955 A ge:69 Y S ex:Male Date:08/04/2024 Address:[address] [place] [address], [id number] Subjective: * Chief Complaints: * R ight groin painHyperlipidemiaHearing lossHypertensionPeripheral arterial diseaseHyperuricemiaRight shoulder painCoronary artery disease * HPI: C OVID-19 Screening: Questions H ave you had any new onset fever, chills, cough, congestion, sore throat, shortness of breath, muscle aches? N o * : The 69-year-old male patient reported a pain in his groin, which he described as feeling like someone had hit him. The pain was intermittent and seemed to be triggered by certain movements, such as shaking after urination or leaning back while showering. The patient also mentioned a recent episode of a sore throat and a runny nose, but these symptoms had since resolved. The patient had been monitoring his uric acid levels, which had slightly increased from 7.3 to 7.4. He had not experienced any symptoms of gout. The patient also reported that he had been taking his metoprolol medication inconsistently, sometimes only taking one pill a day instead of the prescribed two. Blood Sugar Level is 118. * ROS: G eneral/Constitutional: Admits p ain, R ight shoulder with weightbearing or use or elevation, otherwise only normal aches and pains. C hills d enies. F atigue a dmits. F ever d enies. E NT: Decreased hearing m ild. R espiratory: Cough d enies. C ardiovascular: Chest pain with exertion d enies. D yspnea on exertion?denies. S hortness of breath d enies. G astrointestinal: Constipation o ccasional. D ecreased appetite d enies. D iarrhea d enies. H eartburn d enies. N ausea d enies. R ectal bleeding d enies. V omiting d enies. H ematology: bruising d enies. p etechiae d enies. S wollen glands n one have been noted. G enitourinary: Frequent urination t wice a night. M usculoskeletal: Muscle aches R ight groin. P ainful joints d enies.?Sciatica d enies. W eakness d enies. S kin: Itching d enies. R baudilio d enies. S kin lesion(s)?denies. N eurologic: Difficulty speaking d enies. D izziness d enies.?Headache d enies. L ow back pain d enies. P sychiatric: Depressed mood d enies. * Medical History: * Surgical History: a ppendectomy vasectomy bilateral inguinal hernia repair 03/2015colonoscopy, negative, Dr. Daniele Alfaro, [facility]. 2019Angioplasty and atherectomy right superficial femoral artery [...] and diabetes. His mother of complications of [employer] surgery for benign disease. His sister has [...] healthy children. 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 He has [...] Verified] Objective: * Vitals: H t: 68.5, Wt:191, BMI:28.62, BP:145/68, HR:65, Temp:97.0, Wt-k.64. * P ast Orders: Lab:Complete Blood Count [...] X10*3/uL) 0.000 (Ref Range: 0.0-0.012 X10*3/uL) * Lab:Prostate Specific Antige n * Collection Date 07/09/2024 10/01/2023 11/03/2022 Collection Time 06:28 AM 06:12 AM 09:13 AM Order Date 07/09/2024 10/01/2023 11/03/2022 Prostate Specific Antigen 0.94 (Ref Range: <0.05-4.0 ng/mL) 0.80 (Ref Range: <0.05-4.0 ng/mL) 1.70 (Ref Range: <0.05-4.0 ng/mL) * Lab:Lipid Panel * Collection Date 07/09/2024 [...] mg/dL) 49 (Ref Range: >40 mg/dL) * Lab:Comprehensive Vincent. Pane l Fast * Collection Date 08/01/2024 07/09/2024 01/10/2024 Collection Time 06:28 AM 06:28 AM 06:18 AM Order Date 08/01/2024 07/09/2024 01/10/2024 Sodium 139 (Ref Range: 135-145 mmol/L) 140 (Ref Range: 135-145 mmol/L) 140 (Ref Range: 135-145 mmol/L) Bilirubin Total 0.5 (Ref Range: 0.0-1.0 mg/dL) 0.6 (Ref Range: 0.0-1.0 mg/dL) 0.4 (Ref Range: 0.0-1.0 mg/dL) Aspartate Amino Transferase 44 H (Ref Range: 5-37 U/L) 40 H (Ref Range: 5-37 U/L) 17 (Ref Range: 5-37 U/L) Alanine Aminotransferase 66 H (Ref Range: 0-40 U/L) 44 H (Ref Range: 0-40 U/L) 16 (Ref Range: 0-40 U/L) Total Protein 6.6 (Ref Range: 6.5-8.0 g/dL) 6.8 (Ref Range: 6.5-8.0 g/dL) 6.7 (Ref Range: 6.5-8.0 g/dL) Albumin Level 3.9 (Ref Range: 3.5-5.0 g/dL) 4.0 (Ref Range: 3.5-5.0 g/dL) 3.9 (Ref Range: 3.5-5.0 g/dL) Alkaline Phosphatase 91 (Ref Range: 39-117 U/L) 92 (Ref Range: 39-117 U/L) 72 (Ref Range: 39-117 U/L) Potassium 5.1 (Ref Range: 3.3-5.1 mmol/L) 4.7 (Ref Range: 3.3-5.1 mmol/L) 4.7 (Ref Range: 3.3-5.1 mmol/L) Chloride 108 (Ref Range: 96-108 mmol/L) 109 H (Ref Range: 96-108 mmol/L) 107 (Ref Range: 96-108 mmol/L) Carbon Dioxide 26 (Ref Range: 22-29 mmol/L) 25 (Ref Range: 22-29 mmol/L) 26 (Ref Range: 22-29 mmol/L) Anion Gap 10 L (Ref Range: 12-20) 11 L (Ref Range: 12-20) 12 (Ref Range: 12-20) Blood Urea Nitrogen 27 H (Ref Range: 9-16 mg/dL) 33 H (Ref Range: 9-16 mg/dL) 29 H (Ref Range: 9-16 mg/dL) Creatinine 1.25 (Ref Range: 0.5-1.4 mg/dL) 1.63 H (Ref Range: 0.5-1.4 mg/dL) 1.35 (Ref Range: 0.5-1.4 mg/dL) Estimated Glomerular Filt Rate 57 42 52 Glucose Fasting 118 H (Ref Range: 60-99 mg/dL) 121 H (Ref Range: 60-99 mg/dL) 108 H (Ref Range: 60-99 mg/dL) Calcium 8.7 (Ref Range: 8.4-10.2 mg/dL) 9.5 (Ref Range: 8.4-10.2 mg/dL) 9.5 (Ref Range: 8.4-10.2 mg/dL) * Lab:Uric Acid * Collection Date 08/01/2024 06/16/2021 Collection Time 06:28 AM 06:22 AM Order Date 08/01/2024 06/16/2021 Uric Acid 7.4 H (Ref Range: 3.4-7.0 mg/dL) 7.3 H (Ref Range: 3.4-7.0 mg/dL) * Examination: G eneral Examination: GENERAL APPEARANCE: p leasant, well nourished, well developed, in no acute distress, calm and relaxed, overweight, man. HEAD: a traumatic, normocephalic. EYES: e ascencion, perrla, anicteric, conjugate. EARS: N ormal anatomy with bilateral hearing loss.. NOSE: s eptum intact. ORAL CAVITY: n ormal, unremarkable. NECK/THYROID: n o jugular venous distention, no carotid bruit, thyroid normal. LYMPH NODES: n o enlarged lymph nodes,spleen normal. SKIN: n o suspicious lesions, anicteric. HEART: n o clicks, gallops, murmurs, or rubs, regular rhythm, S1, S2 normal, no s3, or vascular bruits. LUNGS: c lear to auscultation . BREASTS: no masses palpable bilaterally. ABDOMEN: b owel sounds normal, no ascites, no organomegaly, no mass.Inguinal hernia scars, no current hernia noted. Groin pain seems to be an attachment of a muscle to the pelvis. RECTAL EXAM: n ot examined. MUSCULOSKELETAL: e xtremities unremarkable, no clubbing, cyanosis or edema. PERIPHERAL PULSES: n ormal. NEUROLOGIC: a lert and oriented, cranial nerves 2-12 grossly intact, deep tendon reflexes 2+ symmetrical, motor strength normal upper and lower extremities, sensory exam intact. PSYCH: a lert, oriented. Assessment: * Assessment: 1. H TN (hypertension) - I10 (Primary) N otes :His blood pressure today is within normal limits. I recommended sodium restriction, but no change in his regimen was necessary. He wants to control his blood pressure and reduce it with lifestyle modification. We discussed this issue at length. 2 . R ight groin pain - R10.31 N otes :This seems to be muscular in origin and not a hernia. Will be observed carefully. He will use heat and acetaminophen. 3 . F ormer smoker - Z87.891 N otes :He is highly motivated not to smoke. We discussed strategies for prevention of relapse in times of stress and illness. 4 . N on-recurrent bilateral inguinal hernia without obstruction or gangrene - K40.20 N otes :The hernias have been repaired and are not returning. 5 . S ensorineural hearing loss (SNHL) of left ear with unrestricted hearing of right ear - H90.42 N otes :He has been referred to ENT in the past and had hearing tests. If this symptom worsens. He will return. 6 . H yperlipidemia, unspecified hyperlipidemia type - E78.5 N otes :His lipids are stable and controlled. He is compliant with medication and has no side effects.His total cholesterol is currently 130. No changes in his regimen are needed. 7 . O verweight (BMI 25.0-29.9) - E66.3 N otes :His body mass index is 28.6. We discussed lifestyle modifications are way to reduce cardiac risk factors. I recommended a diet low in sodium and calories combined with regular activity. 8 . P eripheral arterial occlusive disease - I77.9 N otes :He has no claudication but decreased pulses in the left leg. This will be observed along with vascular surgery. 9 . T endinosis of right shoulder - M67.813 Plan: * Treatment: * Procedure Codes: * Preventive Medicine: Counseling: C are goal follow-up plan: Counseling for abnormal BMI given Y es Above Normal BMI Follow-up D ietary management education, guidance, and counseling, Dietary needs education S moking/Tobacco Use Patient counseled on the dangers of tobacco use and urged to quit. 1 * Follow Up: 2 Weeks, In two weeks (Reason: ov BP check no tests, Check blood pressure and review medications) * Images: * Sign off status: Completed true * Provider: Tawanna Perez MD Date: Generated for Kishore covarrubias/Valentin/Brad on: 09/13/2024 06:24 AM EST History and Physical Notes * HPI (History of Present Illness) Category Sub-Category Detail Notes COVID-19 Screening Questions Have you had any new onset fever, chills, cough, congestion, sore throat, shortness of breath, muscle aches?: No Examination Category Sub-Category Detail Notes General Examination GENERAL APPEARANCE: pleasant , well nourished, well developed, in no acute distress, calm and relaxed, overweight, man HEAD: atraumatic, normocep halic EYES: eomi, perrla, anicte jeison, conjugate EARS: Normal anatomy with bilateral hearing loss. NOSE: septum intact NECK/THYROID: no jugular venous di stention, no carotid bruit, thyroid normal HEART: no clicks, gallops, murmurs, or rubs, regular rhythm, S1, S2 normal, no s3, or vascular bruits LUNGS: clear to auscultatio n ABDOMEN: bowel sounds normal, no ascites, no organomegaly, no mass.Inguinal hernia scars, no current hernia noted. Groin pain seems to be an attachment of a muscle to the pelvis NEUROLOGIC: alert and oriented, cranial nerves 2-12 grossly intact, deep tendon reflexes 2+ symmetrical, motor strength normal upper and lower extremities, sensory exam intact SKIN: no suspicious lesion s, anicteric PERIPHERAL PULSES: normal BREASTS: no masses palpable b ilaterally MUSCULOSKELETAL: extremities unremark able, no clubbing, cyanosis or edema LYMPH NODES: no enlarged lymph no hattie,spleen normal RECTAL EXAM: not examined PSYCH: alert, oriented ORAL CAVITY: normal, unremarkable
--- OUTSIDE RECORDS SUMMARY | 2024-08-19 10:45 | XMS_ITS ---
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 Daniele Perez III Primary Care Provider Allergies Allergen (clinical drug ingredient) Drug/Non Drug Allergy documented on EMR Reaction Allergy Type Onset Date Status No Known Drug Allergy Unknown Drug Allergy Active REASON FOR VISIT Right groin pain, Hypertension, Hearing loss Medications Medication SIG (Take, Route, Frequency, Duration) Notes Start Date End Date Status Lisinopril 10 MG Oral Act александр Metoprolol Succinate ER 50 MG 1 tablet O rally Once a day for 30 days 08/19/2024 Active Lisinopril 20 MG 1 tablet Orally Once a day for 30 days 08/19/2024 Active amLODIPine Besylate 10 MG Oral Active Atorvastatin Calcium 40 MG TAKE 1 TABLET BY MOUTH AT BEDTIME Oral Active hydroCHLOROthiazide 25 MG Oral Active Metoprolol Tartrate 75 MG Oral Active Aspirin 81 81 MG 1 tablet Orally Once a day Active Social History Tobacco Use: Social History [...] Non-User Ex-cigaret te smoker Vital Signs Temperature 97.4 degrees Fahrenheit 08/19/19 25 Blood pressure systolic 150 mm Hg 08/19/19 25 Blood pressure diastolic 60 mm Hg 025 Heart Rate 61 /min 08/19/2024 Height 68.5 in 08/19/2024 Weight 184 lbs 08/19/2024 BMI 27.57 kg/m2 08/19/2024 Encounters Encounter Location Date Provider Diagnosis Daniele Perez III, MD [address] [place] [address] [place] [address] 08/19/2024 Daniele Perez HTN (hypertension) I 10 ; Right lower quadrant abdominal pain R10.31 ; Hyperlipidemia, unspecified hyperlipidemia type E78.5 ; Former smoker Z87.891 ; Overweight (BMI 25.0-29.9) E66.3 ; Sensorineural hearing loss (SNHL) of left ear with unrestricted hearing of right ear H90.42 ; Peripheral arterial occlusive disease I77.9 ; Coronary artery disease involving coronary bypass graft of cantwell heart without angina pectoris I25.810 and Hyperuricemia E79.0 Assessments Encounter Date Diagnosis (ICD Code) Assessment Notes Treat ment Notes Treatment Clinical Notes 08/19/2024 HTN (hypertension) (ICD-10 - I10) His blood pressure has been borderline in the past. It is elevated today at 150/90 despite lying down and resting for a prolonged period of time. I have increased his lisinopril from 10 mg daily to 20 mg daily with a followup visit in 21 days. 08/19/2024 Right lower quadrant abdominal pain (ICD-10 - R10.31) He says the pain has improved but is still present. He has lost substantial weight in his uric acid level was elevated. Abdominal imaging has been ordered. 08/19/2024 Hyperlipidemia, unspecified hyperlipidemia type (ICD-10 - E78.5) His lipids are stable and controlled. He is compliant with medication and has no side effects.His total cholesterol is currently 130. No changes in his regimen are needed. 08/19/2024 Former smoker (ICD-10 - Z87.891) He is highly motivated not to smoke. We discussed strategies for prevention of relapse in times of stress and illness. 08/19/2024 Overweight (BMI 25.0-29.9) (ICD-10 - E66.3) He has lost 9 pounds since his last visit for unclear reasons. He says his appetite is fair. An investigation of the abdominal discomfort is underway. 08/19/2024 Sensorineural hearing loss (SNHL) of left ear with unrestricted hearing of right ear (ICD-10 - H90.42) He has been referred to ENT in the past and had hearing tests. If this symptom worsens. He will return. 08/19/2024 Peripheral arterial occlusive disease (ICD-10 - I77.9) He has no claudication but decreased pulses in the left leg. This will be observed along with vascular surgery. 08/19/2024 Coronary artery disease involving coronary bypass graft of cantwell heart without angina pectoris (ICD-10 - I25.810) His stress test was quite positive, so he went occurred. Nares artery catheterization and then to coronary artery bypass surgery at [facility]. He recovered well without incident. He is no longer in atrial fibrillation. His medications were reviewed with him. His echocardiogram showed good cardiac function. Aggressive risk reduction is in place. 08/19/2024 Hyperuricemia (ICD-10 - E79.0) His uric acid level has been 7.3, and then 7.4. He has no history of gout. I have suggested he see a dietitian but he has declined. I discussed with him the risks of hyperuricemia. I made him aware of the existence of allopurinol. I told him if he ever has an attack of gout we should begin him on treatment. He agreed with this but does not want to be treated now. Plan Of Treatment Medication Medication Name Sig Start Date Stop Date Notes Lisinopril 10 MG Oral Metoprolol Succinate ER 50 MG 1 tablet O rally Once a day for 30 days 08/19/2024 Lisinopril 20 MG 1 tablet Orally Once a day for 30 days 08/19/2024 amLODIPine Besylate 10 MG Oral Atorvastatin Calcium 40 MG TAKE 1 TABLET BY MOUTH AT BEDTIME Oral hydroCHLOROthiazide 25 MG Oral Metoprolol Tartrate 75 MG Oral Aspirin 81 81 MG 1 tablet Orally Once a day Next Appt Details Follow Up: 6 Weeks, four to six weeks, Reason: ov bp check, Routine check-up and blood pressure monitoring Provider Name:Daniele Perez , 07/15/2025 02:30:00 PM, [address] [place] [address] [place], [address], Provider Name:Daniele Perez , 03/19/2026 02:00:00 PM, [address] [place] [address] [place], [address], Progress Notes * YOUNG FLOYD CDOB:1955 (69 yo M)Acc No.[id number]:08/19/2024 Progress Notes Patient: YOUNG CRAIG Provider: Tawanna Perez MD :1955 A ge:69 Y S ex:Male Date:08/19/2024 Address:[address] [place] [address], Miguel [id number] Subjective: * Chief Complaints: * R ight groin painHypertensionHearing loss * HPI: C OVID-19 Screening: Questions H ave you had any new onset fever, chills, cough, congestion, sore throat, shortness of breath, muscle aches? N o * : The patient, a 69-year-old male, reported intermittent pain in the lower abdominal region, which he described as a sensation In his groin. The pain was not severe and was noticed particularly when he was standing up or stretching his right arm over his head. He also mentioned a recent recovery from a cold. The patient reported no new complaints. He also mentioned a slight tingling sensation in his chest, but no trouble breathing. The patient's blood pressure was found to be slightly elevated at 150/60. He also reported a recent weight loss, down from 191 lbs to 180 lbs. * ROS: G eneral/Constitutional: Admits p ain, 5 0% improved right groin pain. C hills d enies. F atigue a dmits. F ever d enies. A dmits W eight loss, A bout 10 pounds. E NT: Decreased hearing m ild. R espiratory: Cough d enies. C ardiovascular: Chest pain with exertion d enies. D yspnea on exertion?denies. S hortness of breath d enies. G astrointestinal: Constipation o ccasional. D ecreased appetite t hat is associated with weight loss. D iarrhea d enies. H eartburn o ccasional. N ausea d enies. R ectal bleeding d enies. V omiting d enies. H ematology: bruising d enies. p etechiae d enies. S wollen glands n one have been noted. G enitourinary: Frequent urination t wice a night. M usculoskeletal: Muscle aches d [...] hernia repair 03/2015colonoscopy, negative, Dr. Daniele Alfaro, [facility]. 2019Angioplasty and atherectomy right superficial femoral artery oronary artery bypass grafting x3 11/2012Triple Bi-pass Surgery 11/17/2022No history * Hospitalization/Major Diagno stic Procedure: N o history * Family History: F ather: 62 yrs, diagnosed with DM, CVD. M other: 49 yrs. S on(s): alive. S iblings: alive. 1 sister(s) . 1 son(s) , 1 daughter(s) - healthy. . His father of coronary artery disease and diabetes. His mother of complications of [employer] surgery for benign disease. His sister has had a hip replacement after fracture and of complications from that. His sister had cryptogenic hepatic cirrhosis. He has a son and a daughter, Jos, who are healthy and well. * Social History: T obacco Use: T obacco Use/Smoking P atient is a f ormer smoker H ow long has it been since you last smoked??> 10 years A dditional Findings: Tobacco Non-User E x-cigarette smoker Monika ricardo has been to Anahi for 35 years. They have 2 healthy children. 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 He has no toxic exposures. * Medications: T akingAspirin 81 81 MG Tablet Delayed Release 1 tablet Orally Once a day Metoprolol Tartrate 75 MG Tablet Oral Atorvastatin Calcium 40 MG Tablet TAKE 1 TABLET BY MOUTH AT BEDTIME Oral hydroCHLOROthiazide 25 MG Tablet Oral Lisinopril 10 MG Tablet Oral amLODIPine Besylate 10 MG Tablet Oral Taking Aspirin 81 81 MG Tablet Delayed Release 1 tablet Orally Once a day Taking Metoprolol Tartrate 75 MG Tablet Oral Taking Atorvastatin Calcium 40 MG Tablet TAKE 1 TABLET BY MOUTH AT BEDTIME Oral Taking hydroCHLOROthiazide 25 MG Tablet Oral Taking Lisinopril 10 MG Tablet Oral Taking amLODIPine Besylate 10 MG Tablet Oral DiscontinuedClopidogrel Bisulfate 75 MG Tablet Oral Diclofenac Sodium 1 % Gel APPLY SMALL AMOUNT TO AREA THREE TIMES DAILY NEEDED FOR PAIN External Celecoxib 200 MG Capsule Oral Medication List reviewed and reconciled with the patientDiscontinued Clopidogrel Bisulfate 75 MG Tablet Oral Discontinued Diclofenac Sodium 1 % Gel APPLY SMALL AMOUNT TO AREA THREE TIMES DAILY NEEDED FOR PAIN External Discontinued Celecoxib 200 MG Capsule Oral Medication List reviewed and reconciled with the patient * Allergies: N o Known Drug Allergyno[Allergies Verified] Objective: * Vitals: H t: 68.5, Wt:184, BMI:27.57, BP:150/60, HR:61, Temp:97.4, Wt-k.46. * P ast Orders: Lab:Comprehensive [facility]. Chanoe l Fast * Collection Date 08/01/2024 07/09/2024 [...] 7.3 H (Ref Range: 3.4-7.0 mg/dL) * Lab:Complete Blood Count Aut o Diff * [...] X10*3/uL) 0.000 (Ref Range: 0.0-0.012 X10*3/uL) * Lab:Lipid Panel * Collection Date 07/09/2024 [...] ng/mL) 1.70 (Ref Range: <0.05-4.0 ng/mL) * Examination: G eneral Examination: GENERAL APPEARANCE: p leasant, well nourished, well developed, in no acute distress, calm and relaxed, overweight, man. HEAD: a traumatic, normocephalic. EYES: e ascencion, perrla, anicteric, conjugate. EARS: n ormal. NOSE: s eptum intact. ORAL CAVITY: n [...] sounds normal, no ascites, no organomegaly, no mass, , No overt hernias. RECTAL EXAM: n ot examined. MUSCULOSKELETAL: e xtremities unremarkable, no clubbing, cyanosis or edema. PERIPHERAL PULSES: n ormal. NEUROLOGIC: a lert and oriented, cranial nerves 2-12 grossly intact, deep tendon reflexes 2+ symmetrical, motor strength normal upper and lower extremities, sensory exam intact. PSYCH: a lert, oriented. Assessment: * Assessment: 1. R ight lower quadrant abdominal pain - R10.31 (Primary) N otes :He says the pain has improved but is still present. He has lost substantial weight in his uric acid level was elevated. Abdominal imaging has been ordered. 2 . H TN (hypertension) - I10 N otes :His blood pressure has been borderline in the past. It is elevated today at 150/90 despite lying down and resting for a prolonged period of time. I have increased his lisinopril from 10 mg daily to 20 mg daily with a followup visit in 21 days. 3 . H yperlipidemia, unspecified hyperlipidemia type - E78.5 N otes :His lipids are stable and controlled. He is compliant with medication and has no side effects.His total cholesterol is currently 130. No changes in his regimen are needed. 4 . F ormer smoker - Z87.891 N otes :He is highly motivated not to smoke. We discussed strategies for prevention of relapse in times of stress and illness. 5 . O verweight (BMI 25.0-29.9) - E66.3 N otes :He has lost 9 pounds since his last visit for unclear reasons. He says his appetite is fair.? An investigation of the abdominal discomfort is underway. 6 . S ensorineural hearing loss (SNHL) of left ear with unrestricted hearing of right ear - H90.42 N otes :He has been referred to ENT in the past and had hearing tests. If this symptom worsens. He will return. 7 . P eripheral arterial occlusive disease - I77.9 N otes :He has no claudication but decreased pulses in the left leg. This will be observed along with vascular surgery. 8 . C oronary artery disease involving coronary bypass graft of cantwell heart without angina pectoris - I25.810 N otes :His stress test was quite positive, so he went occurred. Nares artery catheterization and then to coronary artery bypass surgery at [facility]. He recovered well without incident. He is no longer in atrial fibrillation. His medications were reviewed with him. His echocardiogram showed good cardiac function. Aggressive risk reduction is in place. 9 . H yperuricemia - E79.0 N otes :His uric acid level has been 7.3, and then 7.4. He has no history of gout. I have suggested he see a dietitian but he has declined. I discussed with him the risks of hyperuricemia.? I made him aware of the existence of allopurinol. I told him if he ever has an attack of gout we should begin him on treatment. He agreed with this but does not want to be treated now. Plan: * Treatment: 2. H TN (hypertension) Continue Aspirin 81 Tablet Delayed Release, 81 MG, 1 tablet, Orally, Once a day; C ontinue Metoprolol Tartrate Tablet, 75 MG, Oral; C ontinue Atorvastatin Calcium Tablet, 40 MG, TAKE 1 TABLET BY MOUTH AT BEDTIME, Oral; C ontinue hydroCHLOROthiazide Tablet, 25 MG, Oral; C ontinue amLODIPine Besylate Tablet, 10 MG, Oral; S tart Metoprolol Succinate ER Tablet Extended Release 24 Hour, 50 MG, 1 tablet, Orally, Once a day, 30 days, 30, Refills 11; S tart Lisinopril Tablet, 20 MG, 1 tablet, Orally, Once a day, 30 days, 30, Refills 11. * Procedure Codes: * Preventive Medicine: Counseling: C are goal follow-up plan: Counseling for abnormal BMI given Y es Above Normal BMI Follow-up D ietary needs education, Exercise promotion: strength training S moking/Tobacco Use Patient counseled on the dangers of tobacco use and urged to quit. 0 08/19/2024 * Follow Up: 6 Weeks, four to six weeks (Reason: ov bp check, Routine check-up and blood pressure monitoring) * Images: * Sign off status: Completed true * Provider: Tawanna Perez MD Date: 0 08/19/2024 Generated for Kishore covarrubias/Valentin/Mary Louitting on: 1 09/13/2024 06:24 AM EST History and Physical [...] EYES: eomi, perrla, anicte jeison, conjugate EARS: normal NOSE: septum intact NECK/THYROID: no jugular venous di stention, no carotid bruit, thyroid normal HEART: no clicks, gallops, murmurs, or rubs, regular rhythm, S1, S2 normal, no s3, or vascular bruits LUNGS: clear to auscultatio n ABDOMEN: bowel sounds normal, no ascites, no organomegaly, no mass, , No overt hernias NEUROLOGIC: alert and oriented, cranial nerves 2-12 [...]
--- OUTSIDE RECORDS SUMMARY | 2024-09-30 10:00 | XMS_ITS ---
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 Daniele Perez III Primary Care Provider [phone] Allergies Allergen (clinical drug ingredient) Drug/Non Drug Allergy documented on EMR Reaction Allergy Type Onset Date Status No Known Drug Allergy Unknown Drug Allergy Active REASON FOR VISIT Hyperlipidemia, Hearing loss, Hypertension, Peripheral arterial disease, Hyperuricemia, Coronary artery disease Medications Medication SIG (Take, Route, Frequency, Duration) Notes Start Date End Date Status hydroCHLOROthiazide 25 MG 1 tablet Orall y Once a day Active amLODIPine Besylate 10 MG 1 tablet Orall y Once a day Active Lisinopril 20 MG 1 tablet Orally Once a day 08/19/2024 Active Metoprolol Tartrate 75 MG 1 tablet with food Orally Twice a day Active Atorvastatin Calcium 80 MG 1 tablet Oral ly in the evening Active Aspirin 81 81 MG 1 tablet [...] Non-User Ex-cigaret te smoker Vital Signs Temperature 98.1 degrees Fahrenheit 09/30/19 25 Blood pressure systolic 140 mm Hg 09/30/19 25 Blood pressure diastolic 58 mm Hg 025 Heart Rate 64 /min 09/30/2024 Height 68.5 in 09/30/2024 Weight 185 lbs 09/30/2024 BMI 27.72 kg/m2 09/30/2024 Encounters Encounter Location Date Provider Diagnosis Daniele Perez III, MD [address] [place] [address] [place] [address] 09/30/2024 Daniele Perez HTN (hypertension) I 10 ; Coronary artery disease involving coronary bypass graft of [place] heart without angina pectoris I25.810 ; Hyperlipidemia, unspecified hyperlipidemia type E78.5 ; Overweight (BMI 25.0-29.9) E66.3 ; Former smoker Z87.891 ; Sensorineural hearing loss (SNHL) of left ear with unrestricted hearing of right ear H90.42 and Peripheral arterial occlusive disease I77.9 Assessments Encounter Date Diagnosis (ICD Code) Assessment Notes Treat ment Notes Treatment Clinical Notes 09/30/2024 HTN (hypertension) (ICD-10 - I10) His systolic bloood pressure is 140 with a new dose of lisinopril. He will be brought back to the office in the near future after aggressive sodium restriction and weight loss. His medication will be titrated. 09/30/2024 Coronary artery disease involving coronary bypass graft of [place] heart without angina pectoris (ICD-10 - I25.810) His stress test was quite positive, so he went occurred. Nares artery catheterization and then to coronary artery bypass surgery at [facility]. He recovered well without incident. He is no longer in atrial fibrillation. His medications were reviewed with him. His echocardiogram showed good cardiac function. Aggressive risk reduction is in place. 09/30/2024 Hyperlipidemia, unspecified hyperlipidemia type (ICD-10 - E78.5) His lipids are stable and controlled. He is compliant with medication and has no side effects.His total cholesterol is currently 130. No changes in his regimen are needed. 09/30/2024 Overweight (BMI 25.0-29.9) (ICD-10 - E66.3) He has lost 9 pounds since his last visit for unclear reasons. He says his appetite is fair. An investigation of the abdominal discomfort is underway. 09/30/2024 Former smoker (ICD-10 - Z87.891) He is highly motivated not to smoke. We discussed strategies for prevention of relapse in times of stress and illness. 09/30/2024 Sensorineural hearing loss (SNHL) of left ear with unrestricted hearing of right ear (ICD-10 - H90.42) He has been referred to ENT in the past and had hearing tests. If this symptom worsens. He will return. 09/30/2024 Peripheral arterial occlusive disease (ICD-10 - I77.9) He has no claudication but decreased pulses in the left leg. This will be observed along with vascular surgery. Plan Of Treatment Medication Medication Name Sig Start Date Stop Date Notes hydroCHLOROthiazide 25 MG 1 tablet Orally Once a day amLODIPine Besylate 10 MG 1 tablet Orally Once a day Lisinopril 20 MG 1 tablet Orally Once a day 08/19/2024 Metoprolol Tartrate 75 MG 1 tablet with food Orally Twice a day Atorvastatin Calcium 80 MG 1 tablet Orally in the evening Aspirin 81 81 MG 1 tablet Orally Once a day Pending Test Test Name Order Date PROFILE, FASTING (COMPREHENSIVE METABOLI C) 09/30/2024 CBC WITH AUTO DIFF 09/30/2024 Lipid Panel 09/30/2024 Next Appt Details Follow Up: 3 Months, Reason: OV Provider Name:Daniele Perez , 07/15/2025 02:30:00 PM, [address] [place] [address] [address] [place], [place], [phone], Provider Name:Daniele Perez , 03/19/2026 02:00:00 PM, [address] [place] [address] [place], [place], [phone], Progress Notes * LUIS CARLOS YOUNG CDOB:1955 (69 yo M)Acc No.[id number]:09/30/2024 Progress Notes Patient: YOUNG CRAIG Provider: Tawanna Perez MD :1955 A ge:69 Y S ex:Male Date:09/30/2024 Address:[address] [place] [address], [id number] Subjective: * Chief Complaints: * H yperlipidemiaHearing lossHypertensionPeripheral arterial diseaseHyperuricemiaCoronary artery disease * HPI: C OVID-19 Screening: Questions H ave you had any new onset fever, chills, cough, congestion, sore throat, shortness of breath, muscle aches? N o * : The patient, Young, is a 69-year-old male who has been feeling pretty good recently. He has been active, going skiing at least once a week. He has recently been to vascular surgery. He has been taking medication for his blood pressure and cholesterol, and his blood work results were good. However, he is a bit overweight. He also mentioned a little pain that he had been experiencing, but it has mostly gone away. He believes it was a muscle pain due to an incident of cutting a branch back in the fall. * ROS: G eneral/Constitutional: pain M ild claudication. C hills d enies. F atigue a [...] hernia repair 03/2015colonoscopy, negative, Dr. Daniele Alfaro, [facility]. 2019Angioplasty and atherectomy right superficial femoral artery [...] and diabetes. His mother of complications of HVAC DESIGNER surgery for benign disease. His sister has [...] 2 healthy children. 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 He has no toxic exposures. * Medications: T akingAspirin 81 81 MG Tablet Delayed Release 1 tablet Orally Once a day Atorvastatin Calcium 80 MG Tablet 1 tablet Orally in the evening hydroCHLOROthiazide 25 MG Tablet 1 tablet Orally Once a day amLODIPine Besylate 10 MG Tablet 1 tablet Orally Once a day Lisinopril 20 MG Tablet 1 tablet Orally Once a day Metoprolol Tartrate 75 MG Tablet 1 tablet with food Orally Twice a day Taking Aspirin 81 81 MG Tablet Delayed Release 1 tablet Orally Once a day Taking Atorvastatin Calcium 80 MG Tablet 1 tablet Orally in the evening Taking hydroCHLOROthiazide 25 MG Tablet 1 tablet Orally Once a day Taking amLODIPine Besylate 10 MG Tablet 1 tablet Orally Once a day Taking Lisinopril 20 MG Tablet 1 tablet Orally Once a day Taking Metoprolol Tartrate 75 MG Tablet 1 tablet with food Orally Twice a day DiscontinuedMetoprolol Succinate ER 50 MG Tablet Extended Release 24 Hour 1 tablet Orally Once a day Lisinopril 10 MG Tablet Oral Medication List reviewed and reconciled with the patientDiscontinued Metoprolol Succinate ER 50 MG Tablet Extended Release 24 Hour 1 tablet Orally Once a day Discontinued Lisinopril 10 MG Tablet Oral Medication List reviewed and reconciled with the patient * Allergies: N o Known Drug Allergyno[Allergies Verified] Objective: * Vitals: H t: 68.5, Wt:185, BMI:27.72, BP:140/58, HR:64, Temp:98.1, Ht-cm: 173.99, Wt-k.91. * P ast Orders: Lab:[facility] * Collection Date 08/01/2024 07/09/2024 [...] normal, no ascites, no organomegaly, no mass, overweight, Bilateral inguinal hernia scars. RECTAL EXAM: n ot examined. MUSCULOSKELETAL: e xtremities unremarkable, no clubbing, cyanosis or edema. PERIPHERAL PULSES: n ormal. NEUROLOGIC: a lert and oriented, cranial nerves 2-12 grossly intact, deep tendon reflexes 2+ symmetrical, motor strength normal upper and lower extremities, sensory exam intact. PSYCH: a lert, oriented. Assessment: * Assessment: 1. C oronary artery disease involving coronary bypass graft of [place] heart without angina pectoris - I25.810 (Primary) N otes :His stress test was quite positive, so he went occurred. Nares artery catheterization and then to coronary artery bypass surgery at [facility]. He recovered well without incident. He is no longer in atrial fibrillation. His medications were reviewed with him. His echocardiogram showed good cardiac function. Aggressive risk reduction is in place. 2 . H TN (hypertension) - I10 N otes :His systolic bloood pressure is 140 with a new dose of lisinopril. He will be brought back to the office in the near future after aggressive sodium restriction and weight loss. His medication will be titrated. 3 . H yperlipidemia, unspecified hyperlipidemia type - E78.5 N otes :His lipids are stable and controlled. He is compliant with medication and has no side effects.His total cholesterol is currently 130. No changes in his regimen are needed. 4 . O verweight (BMI 25.0-29.9) - E66.3 N otes :He has lost 9 pounds since his last visit for unclear reasons. He says his appetite is fair. An investigation of the abdominal discomfort is underway. 5 . F ormer smoker - Z87.891 N otes :He is highly motivated not to smoke. We discussed strategies for prevention of relapse in times of stress and illness. 6 . S ensorineural hearing loss (SNHL) [...] will be observed along with vascular surgery. Plan: * Treatment: 2. H yperlipidemia, unspecified hyperlipidemia type L AB: PROFILE, FASTING (COMPREHENSIVE METABOLIC) L AB: CBC WITH AUTO DIFF L AB: Lipid Panel 3. O verweight (BMI 25.0-29.9) L AB: PROFILE, FASTING (COMPREHENSIVE METABOLIC) L AB: CBC WITH AUTO DIFF L AB: Lipid Panel * Procedure Codes: * Preventive Medicine: Counseling: C are goal follow-up plan: Counseling for abnormal BMI given Y es Above Normal BMI Follow-up D ietary management education, guidance, and counseling S moking/Tobacco Use Patient counseled on the dangers of tobacco use and urged to quit. 0 10/28/2024 * Follow Up: 3 Months (Reason: OV) * Images: * Sign off status: Completed true * Provider: Tawanna Perez MD Date: 0 09/30/2024 Generated for Christellei macri/Valentin/eTgabriellesmitting on: 09/13/2024 06:23 AM EST History and Physical Notes * [...] normal, no ascites, no organomegaly, no mass, overweight, Bilateral inguinal hernia scars NEUROLOGIC: alert and oriented, cranial nerves 2-12 [...]
--- OUTSIDE RECORDS SUMMARY | 2025-01-02 04:00 | XMS_ITS ---
Author Organization Daniele Perez III, MD Address [address] [place] [address] [place] [address] Care Team Providers Care Executive Receptionist Name Role Phone Dr. Daniele Perez III Primary Care Provider [phone] Allergies Allergen (clinical drug ingredient) Drug/Non Drug Allergy documented on EMR Reaction Allergy Type Onset Date Status No Known Drug Allergy Unknown Drug Allergy Active REASON FOR VISIT Hyperlipidemia, Hearing loss, Hypertension, Peripheral arterial disease, Coronary artery disease Medications Medication SIG (Take, Route, Frequency, Duration) Notes Start Date End Date Status Atorvastatin Calcium 80 MG 1 tablet Oral ly in the evening Active Aspirin 81 81 MG 1 tablet Orally Once a day Active Lisinopril 20 MG 1 tablet Orally Once a day 08/19/2024 Active Metoprolol Tartrate 75 MG 1 tablet with food Orally Twice a day Active hydroCHLOROthiazide 25 MG 1 tablet Orall y Once a day Active amLODIPine Besylate 10 MG 1 tablet Orall y Once a day Active Social History Tobacco [...] Problem Status W/U Status Risk Notes Problem [id number] Prediabetes (R73.03) Active confirmed He remains overweight with a body mass index of 27. His hemoglobin A1c is 6.0 and his fasting glucose is 114. We discussed the elements of a weight reduction diabetic diet today. He is aware of the significance of prediabetes. Vital Signs Temperature 97.2 degrees Fahrenheit 01/03/20 25 Blood pressure systolic 138 mm Hg 01/03/20 25 Blood pressure diastolic 58 mm Hg 025 Heart Rate 59 /min 01/02/2025 Height 68.5 in 01/02/2025 Weight 180 lbs 01/02/2025 BMI 26.97 kg/m2 01/02/2025 Encounters Encounter Location Date Provider Diagnosis Daniele Perez III, MD [address] [place] [address] [place] [address] 01/02/2025 Daniele Perez HTN (hypertension) I 10 ; Prediabetes R73.03 ; Former smoker Z87.891 ; Hyperlipidemia, unspecified hyperlipidemia type E78.5 ; Sensorineural hearing loss (SNHL) of left ear with unrestricted hearing of right ear H90.42 ; Erectile dysfunction, unspecified erectile dysfunction type N52.9 ; Peripheral arterial occlusive disease I77.9 ; Overweight (BMI 25.0-29.9) E66.3 ; Coronary artery disease involving coronary bypass graft of jackson heart without angina pectoris I25.810 ; Low back pain, unspecified M54.50 and Degenerative disc disease, lumbar M51.36 Assessments Encounter Date Diagnosis (ICD Code) Assessment Notes Treat ment Notes Treatment Clinical Notes 01/02/2025 HTN (hypertension) (ICD-10 - I10) He tolerates the lisinopril well. His blood pressures in the normal range. 01/02/2025 Prediabetes (ICD-10 - R73.03) His fasting glucose has been 120 and then 116. He was concerned that he had prediabetes and we discussed this concept at length. I recommended aggressive follow-up as well as weight loss and a diet low in concentrated sweets. 01/02/2025 Former smoker (ICD-10 - Z87.891) He is highly motivated not to smoke. We discussed strategies for prevention of relapse in times of stress and illness. 01/02/2025 Hyperlipidemia, unspecified hyperlipidemia type (ICD-10 - E78.5) His lipids are stable and controlled. He is compliant with medication and has no side effects.His total cholesterol is currently 130. No changes in his regimen are needed. 01/02/2025 Sensorineural hearing loss (SNHL) of left ear with unrestricted hearing of right ear (ICD-10 - H90.42) He has been referred to ENT in the past and had hearing tests. If this symptom worsens. He will return. 01/02/2025 Erectile dysfunction, unspecified erectile dysfunction type (ICD-10 - N52.9) This problem has been addressed with medications and is resolved. 01/02/2025 Peripheral arterial occlusive disease (ICD-10 - I77.9) He has no claudication but decreased pulses in the left leg. This will be observed along with vascular surgery. 01/02/2025 Overweight (BMI 25.0-29.9) (ICD-10 - E66.3) He has lost 9 pounds since his last visit for unclear reasons. He says his appetite is fair. An investigation of the abdominal discomfort is underway. 01/02/2025 Coronary artery disease involving coronary bypass graft of jackson heart without angina pectoris (ICD-10 - I25.810) His stress test was quite positive, so he went occurred. Nares artery catheterization and then to coronary artery bypass surgery at [facility]. He recovered well without incident. He is no longer in atrial fibrillation. His medications were reviewed with him. His echocardiogram showed good cardiac function. Aggressive risk reduction is in place. 01/02/2025 Low back pain, unspecified (ICD-10 - M54.50) He complains of pain in the back. It radiates into his hips. X-rays of the spine and pelvis and hip joints were ordered. 01/02/2025 Degenerative disc disease, lumbar (ICD-10 - M51.36) He will continue with the massages and physical therapy and use ibuprofen. Plan Of Treatment Medication Medication Name Sig Start Date Stop Date Notes Atorvastatin Calcium 80 MG 1 tablet Orally in the evening Aspirin 81 81 MG 1 tablet Orally Once a day Lisinopril 20 MG 1 tablet Orally Once a day 08/19/2024 Metoprolol Tartrate 75 MG 1 tablet with food Orally Twice a day hydroCHLOROthiazide 25 MG 1 tablet Orally Once a day amLODIPine Besylate 10 MG 1 tablet Orally Once a day Pending Test Test Name Order Date PROFILE, FASTING (COMPREHENSIVE METABOLI C) 01/02/2025 CBC w DIFF 01/02/2025 Uric Acid 01/02/2025 Lipid Panel 01/02/2025 Hemoglobin A1c 01/02/2025 Next Appt Details Follow Up: As Scheduled, Cynthia son: Annual Exam Provider Name:Daniele Perez , 07/15/2025 02:30:00 PM, [address] [place] [address] [address], [place], [address], Provider Name:Daniele Perez , 03/19/2026 02:00:00 PM, [address] [place] [address] [address], [place], [address], Progress Notes * YOUNG FLOYD CDOB:1955 (69 yo M)Acc No.[id number]:01/02/2025 Progress Notes Patient: YOUNG CRAIG Provider: Tawanna Perez MD :1955 A ge:69 Y S ex:Male Date:01/02/2025 Address:[address] [place] [address], [id number] Subjective: * Chief Complaints: * H yperlipidemiaHearing lossHypertensionPeripheral arterial diseaseCoronary artery disease * HPI: C OVID-19 Screening: Monika ricardo reports that he has had no angina since his visit. His back pain is described as good and he is able to conduct all of the activities of daily living. His hearing loss is unchanged. His hernias have not relapsed. Blood work was available and was reviewed with him. Questions H ave you had any new onset fever, chills, cough, congestion, sore throat, shortness of breath, muscle aches? N o * ROS: G eneral/Constitutional: pain o nly normal aches and pains. C hills d enies.?Fatigue a dmits. F ever d enies. E [...] have been noted. G enitourinary: Frequent urination o nce a [...] hernia repair 03/2015colonoscopy, negative, Dr. Daniele Alfaro, [facility]. 2019Angioplasty and atherectomy right superficial femoral [...] and diabetes. His mother of complications of APPRAISER surgery for benign disease. His sister has [...] healthy children. 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 He has [...] tablet with food Orally Twice a day Medication List reviewed and reconciled with the [...] tablet with food Orally Twice a day Medication List reviewed and reconciled with the patient * Allergies: N o Known Drug Allergyno[Allergies Verified] Objective: * Vitals: H t: 68.5, Wt:180, BMI:26.97, BP:138/58, HR:59, Temp:97.2, Ht-cm: 173.99, Wt-k.65. * P ast Orders: Lab:Complete Blood Count Aut o Diff * Collection Date 12/31/2024 07/09/2024 01/10/2024 Collection Time 06:16 AM 06:28 AM 06:18 AM Order Date 12/31/2024 07/09/2024 01/10/2024 White Blood Count 6.5 (Ref Range: 4.8-10.8 X10*3/uL) 6.3 (Ref Range: 4.8-10.8 X10*3/uL) 7.2 (Ref Range: 4.8-10.8 X10*3/uL) Red Blood Count 4.10 L (Ref Range: 4.60-5.80 X10*6/uL) 4.50 L (Ref Range: 4.60-5.80 X10*6/uL) 4.43 L (Ref Range: 4.60-5.80 X10*6/uL) Hemoglobin 11.5 L (Ref Range: 14.0-18.0 g/dl) 12.7 L (Ref Range: 14.0-18.0 g/dl) 12.8 L (Ref Range: 14.0-18.0 g/dl) Hematocrit 35.2 L (Ref Range: 42.0-52.0 %) 38.3 L (Ref Range: 42.0-52.0 %) 37.9 L (Ref Range: 42.0-52.0 %) Mean Corpuscular Volume 85.9 (Ref Range: 80.0-98.0 fL) 85.1 (Ref Range: 80.0-98.0 fL) 85.6 (Ref Range: 80.0-98.0 fL) Mean Corpuscular Hemoglobin 28.0 (Ref Range: 27.0-33.0 pg) 28.2 (Ref Range: 27.0-33.0 pg) 28.9 (Ref Range: 27.0-33.0 pg) Mean Corpuscular HGB Conc 32.7 (Ref Range: 31.0-36.0 g/dl) 33.2 (Ref Range: 31.0-36.0 g/dl) 33.8 (Ref Range: 31.0-36.0 g/dl) Red Cell Distribution Width 13.6 (Ref Range: 11.0-16.0 %) 13.2 (Ref Range: 11.0-16.0 %) 13.2 (Ref Range: 11.0-16.0 %) Platelet Count 141 L (Ref Range: 160-400 X10*3/uL) 152 L (Ref Range: 160-400 X10*3/uL) 149 L (Ref Range: 160-400 X10*3/uL) Mean Platelet Volume 11.0 (Ref Range: 9.4-12.4 fL) 10.5 (Ref Range: 9.4-12.4 fL) 10.5 (Ref Range: 9.4-12.4 fL) Neutrophils Percent Auto 46.3 (Ref Range: 45-73 %) 45.9 (Ref Range: 45-73 %) 49.6 (Ref Range: 45-73 %) Imm Gran Pct Auto 0.2 (Ref Range: 0.0-0.4 %) 0.2 (Ref Range: 0.0-0.4 %) 0.4 (Ref Range: 0.0-0.4 %) Lymphocytes Percent Auto 38.7 (Ref Range: 20-40 %) 36.1 (Ref Range: 20-40 %) 35.1 (Ref Range: 20-40 %) Monocytes Percent Auto 9.4 (Ref Range: 2-11 %) 10.5 (Ref Range: 2-11 %) 9.6 (Ref Range: 2-11 %) Eosinophils Percent Auto 4.8 H (Ref Range: 0-4 %) 6.8 H (Ref Range: 0-4 %) 4.7 H (Ref Range: 0-4 %) Basophils Percent Auto 0.6 (Ref Range: 0-2 %) 0.5 (Ref Range: 0-2 %) 0.6 (Ref Range: 0-2 %) NRBC Pct Auto 0.0 (Ref Range: 0.0-0.2 /100WBC) 0.0 (Ref Range: 0.0-0.2 /100WBC) 0.0 (Ref Range: 0.0-0.2 /100WBC) Neutrophils Absolute Auto 3.0 (Ref Range: 2.0-8.3 x10*3/uL) 2.9 (Ref Range: 2.0-8.3 x10*3/uL) 3.6 (Ref Range: 2.0-8.3 x10*3/uL) Imm Gran Abs Auto 0.01 (Ref Range: 0.00-0.03 X10*3/uL) 0.01 (Ref Range: 0.00-0.03 X10*3/uL) 0.03 (Ref Range: 0.00-0.03 X10*3/uL) Lymphocytes Absolute Auto 2.5 (Ref Range: 1.2-4.9 X10*3/uL) 2.3 (Ref Range: 1.2-4.9 X10*3/uL) 2.5 (Ref Range: 1.2-4.9 X10*3/uL) Monocytes Absolute Auto 0.6 (Ref Range: 0.1-1.2 X10*3/uL) 0.7 (Ref Range: 0.1-1.2 X10*3/uL) 0.7 (Ref Range: 0.1-1.2 X10*3/uL) Eosinophils Absolute Auto 0.3 (Ref Range: 0.0-0.4 X10*3/uL) 0.4 (Ref Range: 0.0-0.4 X10*3/uL) 0.3 (Ref Range: 0.0-0.4 X10*3/uL) Basophils Absolute Auto 0.0 (Ref Range: 0.0-0.2 X10*3/uL) 0.0 (Ref Range: 0.0-0.2 X10*3/uL) 0.0 (Ref Range: 0.0-0.2 X10*3/uL) NRBC Abs Auto 0.000 (Ref Range: 0.0-0.012 X10*3/uL) 0.000 (Ref Range: 0.0-0.012 X10*3/uL) 0.000 (Ref Range: 0.0-0.012 X10*3/uL) * Lab:[facility] [place]. Chanoe l Fast * Collection Date 12/31/2024 08/01/2024 07/09/2024 Collection Time 06:16 AM 06:28 AM 06:28 AM Order Date 12/31/2024 08/01/2024 07/09/2024 Sodium 140 (Ref Range: 135-145 mmol/L) 139 (Ref Range: 135-145 mmol/L) 140 (Ref Range: 135-145 mmol/L) Bilirubin Total 0.5 (Ref Range: 0.0-1.0 mg/dL) 0.5 (Ref Range: 0.0-1.0 mg/dL) 0.6 (Ref Range: 0.0-1.0 mg/dL) Aspartate Amino Transferase 39 H (Ref Range: 5-37 U/L) 44 H (Ref Range: 5-37 U/L) 40 H (Ref Range: 5-37 U/L) Alanine Aminotransferase 51 H (Ref Range: 0-40 U/L) 66 H (Ref Range: 0-40 U/L) 44 H (Ref Range: 0-40 U/L) Total Protein 6.9 (Ref Range: 6.5-8.0 g/dL) 6.6 (Ref Range: 6.5-8.0 g/dL) 6.8 (Ref Range: 6.5-8.0 g/dL) Albumin Level 4.1 (Ref Range: 3.5-5.0 g/dL) 3.9 (Ref Range: 3.5-5.0 g/dL) 4.0 (Ref Range: 3.5-5.0 g/dL) Alkaline Phosphatase 87 (Ref Range: 39-117 U/L) 91 (Ref Range: 39-117 U/L) 92 (Ref Range: 39-117 U/L) Potassium 4.8 (Ref Range: 3.3-5.1 mmol/L) 5.1 (Ref Range: 3.3-5.1 mmol/L) 4.7 (Ref Range: 3.3-5.1 mmol/L) Chloride 108 (Ref Range: 96-108 mmol/L) 108 (Ref Range: 96-108 mmol/L) 109 H (Ref Range: 96-108 mmol/L) Carbon Dioxide 26 (Ref Range: 22-29 mmol/L) 26 (Ref Range: 22-29 mmol/L) 25 (Ref Range: 22-29 mmol/L) Anion Gap 11 L (Ref Range: 12-20) 10 L (Ref Range: 12-20) 11 L (Ref Range: 12-20) Blood Urea Nitrogen 33 H (Ref Range: 9-16 mg/dL) 27 H (Ref Range: 9-16 mg/dL) 33 H (Ref Range: 9-16 mg/dL) Creatinine 1.51 H (Ref Range: 0.5-1.4 mg/dL) 1.25 (Ref Range: 0.5-1.4 mg/dL) 1.63 H (Ref Range: 0.5-1.4 mg/dL) Estimated Glomerular Filt Rate 46 57 42 Glucose Fasting 116 H (Ref Range: 60-99 mg/dL) 118 H (Ref Range: 60-99 mg/dL) 121 H (Ref Range: 60-99 mg/dL) Calcium 9.2 (Ref Range: 8.4-10.2 mg/dL) 8.7 (Ref Range: 8.4-10.2 mg/dL) 9.5 (Ref Range: 8.4-10.2 mg/dL) * Lab:Lipid Panel * Collection Date 12/31/2024 07/09/2024 01/10/2024 Collection Time 06:16 AM 06:28 AM 06:18 AM Order Date 12/31/2024 07/09/2024 01/10/2024 Triglycerides 77 (Ref Range: <150 mg/dL) 73 (Ref Range: <150 mg/dL) 61 (Ref Range: <150 mg/dL) Cholesterol 126 (Ref Range: <200 mg/dL) 130 (Ref Range: <200 mg/dL) 141 (Ref Range: <200 mg/dL) LDL Cholesterol Calculated 66 (Ref Range: <100 mg/dL) 69 (Ref Range: <100 mg/dL) 81 (Ref Range: <100 mg/dL) HDL Cholesterol 45 (Ref Range: >40 mg/dL) 47 (Ref Range: >40 mg/dL) 48 (Ref Range: >40 mg/dL) * Examination: G eneral Examination: GENERAL [...] normal, no ascites, no organomegaly, no mass, overweight. RECTAL EXAM: n ot examined. MUSCULOSKELETAL: e xtremities unremarkable, no clubbing, cyanosis or edema. PERIPHERAL PULSES: n ormal. NEUROLOGIC: a lert and oriented, cranial nerves 2-12 grossly intact, deep tendon reflexes 2+ symmetrical, motor strength normal upper and lower extremities, sensory exam intact. PSYCH: a lert, oriented. Assessment: * Assessment: 1. H TN (hypertension) - I10 (Primary) N otes :He tolerates the lisinopril well. His blood pressures in the normal range. 2 . P rediabetes - R73.03 N otes :His fasting glucose has been 120 and then 116. He was concerned that he had prediabetes and we discussed this concept at length. I recommended aggressive follow-up as well as weight loss and a diet low in concentrated sweets. 3 . F ormer smoker - Z87.891 N otes :He is highly motivated not to smoke. We discussed strategies for prevention of relapse in times of stress and illness. 4 . H yperlipidemia, unspecified hyperlipidemia type - E78.5 N otes :His lipids are stable and controlled. He is compliant with medication and has no side effects.His total cholesterol is currently 130. No changes in his regimen are needed. 5 . S ensorineural hearing loss (SNHL) of left ear with unrestricted hearing of right ear - H90.42 N otes :He has been referred to ENT in the past and had hearing tests. If this symptom worsens. He will return. 6 . E rectile dysfunction, unspecified erectile dysfunction type - N52.9 ? N otes :This problem has been addressed with medications and is resolved. 7 . P eripheral arterial occlusive disease - I77.9 N otes :He has no claudication but decreased pulses in the left leg. This will be observed along with vascular surgery. 8 . O verweight (BMI 25.0-29.9) - E66.3 N otes :He has lost 9 pounds since his last visit for unclear reasons. He says his appetite is fair. An investigation of the abdominal discomfort is underway. 9 . C oronary artery disease involving coronary bypass graft of jackson heart without angina pectoris - I25.810 N otes :His stress test was quite positive, so he went occurred. Nares artery catheterization and then to coronary artery bypass surgery at [facility]. He recovered well without incident. He is no longer in atrial fibrillation. His medications were reviewed with him. His echocardiogram showed good cardiac function. Aggressive risk reduction is in place. 1 0. L ow back pain, unspecified - M54.50 N otes :He complains of pain in the back. It radiates into his hips. X-rays of the spine and pelvis and hip joints were ordered. 1 1. D egenerative disc disease, lumbar - M51.36 N otes :He will continue with the massages and physical therapy and use ibuprofen. Plan: * Treatment: * Procedure Codes: * Preventive Medicine: Counseling: C are goal follow-up plan: Counseling for abnormal BMI given Y es Above Normal BMI Follow-up D ietary management education, guidance, and counseling S moking/Tobacco Use Patient counseled on the dangers of tobacco use and urged to quit. 0 01/02/2025 * Follow Up: A s Scheduled (Reason: Annual Exam) * Images: * Sign off status: Completed true * Provider: Tawanna Perez MD Date: 0 01/02/2025 Generated for Christellei marci/Valentin/eTransmitting on: 1 09/13/2024 06:23 AM EST History and Physical [...] normal, no ascites, no organomegaly, no mass, overweight NEUROLOGIC: alert and oriented, cranial nerves 2-12 [...]
--- OUTSIDE RECORDS SUMMARY | 2025-02-13 11:25 | XMS_ITS ---
Author Organization Daniele Perez III, MD Address [address] [place] [address] [place] [address] Care Team Providers Care [employer] Name Role Phone Dr. Daniele Perez III Primary Care Provider [phone] REASON FOR VISIT has balance ? will write off Social History Sex Assigned At : Social History Observation Description Sex Assigned At Male Encounters Encounter Location Date Provider Diagnosis Daniele Perez III, MD [address] [place] [address] [place] [address] 02/13/2025 Daniele Perez Plan Of Treatment Next Appt Details Provider Name:Daniele Perez , 07/15/2025 02:30:00 PM, [address] [place] [address] [place], [address], Provider Name:Daniele Perez , 03/19/2026 02:00:00 PM, [address] [place] [address] [place], [address], Progress Notes * YOUNG DINERO CDOB:1955 (69 yo M)Acc No.[id number]:02/13/2025 Patient: YOUNG CRAIG Miguel :1955 A ge:69 Y S ex:Male Address:[address] [place] [address] [place], [address] * true * Date: Generated for Printi ng/Faxing/eTransmitting on: 1 09/13/2024 06:23 AM EST
--- OUTSIDE RECORDS SUMMARY | 2025-02-16 09:52 | XMS_ITS ---
Author Organization Daniele Perez III, MD Address [address] [place] [address] [place] [address] Care Team Providers Care Salt Refiner Name Role Phone Dr. Daniele Perez III Primary Care Provider REASON FOR VISIT update about [employer] medicare advantage Social History Sex Assigned At : Social History Observation Description Sex Assigned At Male Encounters Encounter Location Date Provider Diagnosis Daniele Perez III, MD [address] [place] [address] [place] [address] 02/16/2025 Daniele Perez Plan Of Treatment Next Appt Details Provider Name:Daniele Perez , 07/15/2025 02:30:00 PM, [address] [place] [address] [place], [address], Provider Name:Daniele Perez , 03/19/2026 02:00:00 PM, [address] [place] [address] [place], [address], Progress Notes * YOUNG DINERO CDOB:1955 (69 yo M)Acc No.[id number]:02/16/2025 Patient: YOUNG CRAIG Miguel :1955 A ge:69 Y S ex:Male Address:[address] [place] [address] [place], [address] * true * Date: Generated for Printi ng/Faxing/eTransmitting on: 1 09/13/2024 06:23 AM EST
--- OUTSIDE RECORDS SUMMARY | 2025-03-17 09:00 | XMS_ITS ---
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 Daniele Perez III Primary Care Provider Allergies Allergen (clinical drug ingredient) Drug/Non Drug Allergy documented on EMR Reaction Allergy Type Onset Date Status No Known Drug Allergy Unknown Drug Allergy Active No Known Food Allergy Unknown Drug Allergy Active REASON FOR VISIT annual exam Medications Medication SIG (Take, Route, Frequency, Duration) Notes Start Date End Date Status hydroCHLOROthiazide 25 MG 1 tablet Orall y Once a day Active Atorvastatin Calcium 80 MG 1 tablet Oral ly in the evening Active Lisinopril 20 MG 1 tablet Orally Once a day 08/19/2024 Active amLODIPine Besylate 10 MG 1 tablet Orall y Once a day Active Aspirin 81 81 MG 1 tablet Orally Once a day Active Metoprolol Tartrate 75 MG 1 tablet with food Orally Twice a day Active Ketoconazole 2 % 1 application Externally twice a day for 30 days 03/17/2025 03/12/2026 Active Social History Tobacco Use: Social History Observation Description Date Details (start date - stop date) Former Smoker NA - NA Sex Assigned At : Social History Observation Description Sex Assigned At Male Tobacco Control (Standard) Question Answer Notes Tobacco use: Former smoker How long has it been since you last smoked? Grea ter than 10 years Additional Findings: Tobacco non-user Ex-cigaret te smoker AUDIT-C (Standard) Question Answer Notes Did you have a drink containing alcohol in the p ast year? No Points 0 Interpretation Negative Vital Signs Temperature 97.9 degrees Fahrenheit 03/17/20 25 Blood pressure systolic 136 mm Hg 03/17/20 25 Blood pressure diastolic 80 mm Hg 025 Heart Rate 54 /min 03/17/2025 Respiratory Rate 16 /min 03/17/2025 Height 68.5 in 03/17/2025 Weight 183 lbs 03/17/2025 BMI 27.42 kg/m2 03/17/2025 Oximetry 96 % 03/17/2025 Encounters Encounter Location Date Provider Diagnosis Daniele Perez III, MD [address] [place] [address] [place] [address] 03/17/2025 Daniele Perez HTN (hypertension) I 10 ; Overweight (BMI 25.0-29.9) E66.3 ; Prediabetes R73.03 ; Former smoker Z87.891 ; Hyperlipidemia, unspecified hyperlipidemia type E78.5 ; Erectile dysfunction, unspecified erectile dysfunction type N52.9 ; Non-recurrent bilateral inguinal hernia without obstruction or gangrene K40.20 and Sensorineural hearing loss (SNHL) of left ear with unrestricted hearing of right ear H90.42 Assessments Encounter Date Diagnosis (ICD Code) Assessment Notes Treat ment Notes Treatment Clinical Notes 03/17/2025 HTN (hypertension) (ICD-10 - I10) He tolerates the lisinopril well. His blood pressures in the normal range. 03/17/2025 Overweight (BMI 25.0-29.9) (ICD-10 - E66.3) His body mass index is 27 we have discussed his diet and nutrition. We made a plan to lose weight at a rate of one half of a pound per week through diet restricted in calories combined with regular physical activity 03/17/2025 Prediabetes (ICD-10 - R73.03) He remains overweight with a body mass index of 27. His hemoglobin A1c is 6.0 and his fasting glucose is 114. We discussed the elements of a weight reduction diabetic diet today. He is aware of the significance of prediabetes. 03/17/2025 Former smoker (ICD-1 0 - Z87.891) He is highly motivated not to smoke. We discussed strategies for prevention of relapse in times of stress and illness. 03/17/2025 Hyperlipidemia, unspecified hyperlipidemia type (ICD-10 - E78.5) His lipids are stable and controlled. He is compliant with medication and has no side effects.His total cholesterol is currently 130. No changes in his regimen are needed. 03/17/2025 Erectile dysfunction , unspecified erectile dysfunction type (ICD-10 - N52.9) This problem has been addressed with medications and is resolved. 03/17/2025 Non-recurrent bilateral inguinal hernia without obstruction or gangrene (ICD-10 - K40.20) The hernias have been repaired and are not returning. 03/17/2025 Sensorineural hearin g loss (SNHL) of left ear with unrestricted hearing of right ear (ICD-10 - H90.42) He has been referred to ENT in the past and had hearing tests. If this symptom worsens. He will return. Plan Of Treatment Medication Medication Name Sig Start Date Stop Date Notes hydroCHLOROthiazide 25 MG 1 tablet Orally Once a day Atorvastatin Calcium 80 MG 1 tablet Orally in the evening Lisinopril 20 MG 1 tablet Orally Once a day 08/19/2024 amLODIPine Besylate 10 MG 1 tablet Orally Once a day Aspirin 81 81 MG 1 tablet Orally Once a day Metoprolol Tartrate 75 MG 1 tablet with food Orally Twice a day Ketoconazole 2 % 1 application Shrimper ally twice a day for 30 days 03/17/2025 03/12/2026 Pending Test Test Name Order Date PROFILE, FASTING (COMPREHENSIVE METABOLI C) 03/17/2025 GGT 03/17/2025 CBC w DIFF 03/17/2025 Uric Acid 03/17/2025 Lipid Panel 03/17/2025 Hemoglobin A1c 03/17/2025 Next Appt Details Follow Up: 3 Months, Reason: OV Provider Name:Daniele Perez , 07/15/2025 02:30:00 PM, [address] [place] [address] [address], [place], [address], Provider Name:Daniele Perez , 03/19/2026 02:00:00 PM, [address] [place] [address] [address], [place], [address], Progress Notes * YOUNG FLOYD CDOB:1955 (69 yo M)Acc No.[id number]:03/17/2025 Progress Notes Patient: YOUNG CRAIG Provider: Tawanna Perez MD :1955 A ge:69 Y S ex:Male Date:03/17/2025 Address:[address] [place] [address], [id number] Subjective: * Chief Complaints: * A nnual exam * HPI: D epression Screening: He returns at the age of 69 (annual physical examination.He is followed here for hyperlipidemia, inguinal hernias, hearing loss, overweight, hypertension, back pain, coronary artery disease, right anterior shoulder pain gout and coronary artery disease. Since his last visit he has been healthy and well.Comprehensive blood work was available and was reviewed with him in detail. PHQ-9 L ittle interest or pleasure in doing things?Not at all F eeling down, depressed, or hopeless N ot at all T rouble falling or staying asleep, or sleeping too much N ot at all F eeling tired or having little energy N ot at all P oor appetite or overeating N ot at all F eeling bad about yourself or that you are a failure, or have let yourself or your family down N ot at all T rouble concentrating on things, such as reading the newspaper or watching television N ot at all M oving or speaking so slowly that other people could have noticed; or the opposite, being so fidgety or restless that you have been moving around a lot more than usual N ot at all T houghts that you would be better off or of hurting yourself in some way N ot at all T otal Score 0 C OVID-19 Screening: Questions H ave you had any new onset fever, chills, cough, congestion, sore throat, shortness of breath, muscle aches? N o S ERVIN Questions: SDOH Questions I n the past year have you been worried about losing your housing? N o I n the past year have you or any family members you live with been unable to get any of the following when it was really needed? Check all that apply: N one F all Risk Screening: Fall History H ave you had any falls with injury in the past year? N o H ave you had two or more falls in the past year? N o F all Risk Assessment: N o falls in the past year * ROS: G eneral/Constitutional: pain o nly normal aches and pains. C hills d enies.?Fatigue a dmits. F ever d enies. E NT: Decreased hearing d enies, in the left ear. ? R espiratory: Cough d enies. C ardiovascular: [...] have been noted. G enitourinary: Frequent urination d enies. M usculoskeletal: Muscle aches d enies. P [...] hernia repair 03/2015colonoscopy, negative, Dr. Daniele Alfaro, [facility]. 2019Angioplasty and atherectomy right superficial femoral [...] and diabetes. His mother of complications of [employer]OCI[employer] surgery for benign disease. His sister has had a hip replacement after fracture and of complications from that. His sister had cryptogenic hepatic cirrhosis. He has a son and a daughter, Jos, who are healthy and well. * Social History: T obacco Use: T obacco Control (Standard) T obacco use: F ormer smoker H ow long has it been since you last smoked??Greater than 10 years A dditional Findings: Tobacco non-user E x-cigarette smoker D rugs/Alcohol: D rugs H ave you used drugs other than those for medical reasons in the past 12 months? N o D rug/Alcohol: A SANCHEZ-C (Standard) D id you have a drink containing alcohol in the past year? N o P oints 0 I nterpretation N egative H e has been to Anahi for 35 years. They have 2 healthy children. 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 [...] patient * Allergies: N o Known Drug AllergyNo Known Food Allergyno[Allergies Verified] Objective: * Vitals: H t: 68.5, Wt:183, BMI:27.42, BP:136/80, HR:54, RR:16, Temp:97.9, Oxygen sat %:96, Ht-cm: 173.99, Wt-k.01. * P ast Orders: Lab:Complete Blood Count Aut o Diff * Collection Date 03/13/2025 12/31/2024 07/09/2024 Collection Time 06:31 AM 06:16 AM 06:28 AM Order Date 03/13/2025 12/31/2024 07/09/2024 White Blood Count 6.6 (Ref Range: 4.8-10.8 X10*3/uL) 6.5 (Ref Range: 4.8-10.8 X10*3/uL) 6.3 (Ref Range: 4.8-10.8 X10*3/uL) Red Blood Count 4.44 L (Ref Range: 4.60-5.80 X10*6/uL) 4.10 L (Ref Range: 4.60-5.80 X10*6/uL) 4.50 L (Ref Range: 4.60-5.80 X10*6/uL) Hemoglobin 12.5 L (Ref Range: 14.0-18.0 g/dl) 11.5 L (Ref Range: 14.0-18.0 g/dl) 12.7 L (Ref Range: 14.0-18.0 g/dl) Hematocrit 37.8 L (Ref Range: 42.0-52.0 %) 35.2 L (Ref Range: 42.0-52.0 %) 38.3 L (Ref Range: 42.0-52.0 %) Mean Corpuscular Volume 85.1 (Ref Range: 80.0-98.0 fL) 85.9 (Ref Range: 80.0-98.0 fL) 85.1 (Ref Range: 80.0-98.0 fL) Mean Corpuscular Hemoglobin 28.2 (Ref Range: 27.0-33.0 pg) 28.0 (Ref Range: 27.0-33.0 pg) 28.2 (Ref Range: 27.0-33.0 pg) Mean Corpuscular HGB Conc 33.1 (Ref Range: 31.0-36.0 g/dl) 32.7 (Ref Range: 31.0-36.0 g/dl) 33.2 (Ref Range: 31.0-36.0 g/dl) Red Cell Distribution Width 13.2 (Ref Range: 11.0-16.0 %) 13.6 (Ref Range: 11.0-16.0 %) 13.2 (Ref Range: 11.0-16.0 %) Platelet Count 158 L (Ref Range: 160-400 X10*3/uL) 141 L (Ref Range: 160-400 X10*3/uL) 152 L (Ref Range: 160-400 X10*3/uL) Mean Platelet Volume 10.9 (Ref Range: 9.4-12.4 fL) 11.0 (Ref Range: 9.4-12.4 fL) 10.5 (Ref Range: 9.4-12.4 fL) Neutrophils Percent Auto 52.7 (Ref Range: 45-73 %) 46.3 (Ref Range: 45-73 %) 45.9 (Ref Range: 45-73 %) Imm Gran Pct Auto 0.3 (Ref Range: 0.0-0.4 %) 0.2 (Ref Range: 0.0-0.4 %) 0.2 (Ref Range: 0.0-0.4 %) Lymphocytes Percent Auto 31.0 (Ref Range: 20-40 %) 38.7 (Ref Range: 20-40 %) 36.1 (Ref Range: 20-40 %) Monocytes Percent Auto 11.0 (Ref Range: 2-11 %) 9.4 (Ref Range: 2-11 %) 10.5 (Ref Range: 2-11 %) Eosinophils Percent Auto 4.4 H (Ref Range: 0-4 %) 4.8 H (Ref Range: 0-4 %) 6.8 H (Ref Range: 0-4 %) Basophils Percent Auto 0.6 (Ref Range: 0-2 %) 0.6 (Ref Range: 0-2 %) 0.5 (Ref Range: 0-2 %) NRBC Pct Auto 0.0 (Ref Range: 0.0-0.2 /100WBC) 0.0 (Ref Range: 0.0-0.2 /100WBC) 0.0 (Ref Range: 0.0-0.2 /100WBC) Neutrophils Absolute Auto 3.5 (Ref Range: 2.0-8.3 x10*3/uL) 3.0 (Ref Range: 2.0-8.3 x10*3/uL) 2.9 (Ref Range: 2.0-8.3 x10*3/uL) Imm Gran Abs Auto 0.02 (Ref Range: 0.00-0.03 X10*3/uL) 0.01 (Ref Range: 0.00-0.03 X10*3/uL) 0.01 (Ref Range: 0.00-0.03 X10*3/uL) Lymphocytes Absolute Auto 2.0 (Ref Range: 1.2-4.9 X10*3/uL) 2.5 (Ref Range: 1.2-4.9 X10*3/uL) 2.3 (Ref Range: 1.2-4.9 X10*3/uL) Monocytes Absolute Auto 0.7 (Ref Range: 0.1-1.2 X10*3/uL) 0.6 (Ref Range: 0.1-1.2 X10*3/uL) 0.7 (Ref Range: 0.1-1.2 X10*3/uL) Eosinophils Absolute Auto 0.3 (Ref Range: 0.0-0.4 X10*3/uL) 0.3 (Ref Range: 0.0-0.4 X10*3/uL) 0.4 (Ref Range: 0.0-0.4 X10*3/uL) Basophils Absolute Auto 0.0 (Ref Range: 0.0-0.2 X10*3/uL) 0.0 (Ref Range: 0.0-0.2 X10*3/uL) 0.0 (Ref Range: 0.0-0.2 X10*3/uL) NRBC Abs Auto 0.000 (Ref Range: 0.0-0.012 X10*3/uL) 0.000 (Ref Range: 0.0-0.012 X10*3/uL) 0.000 (Ref Range: 0.0-0.012 X10*3/uL) ???Lab:Hemoglobin A1c (Order Date - 03/13/2025) (Collection Date & Time - 03/13/2025 06:31 AM)?ValueReference Range?Hemoglobin A1c %6.0<6.0 - %?Estimated Average [id number]- mg/dL * Lab:Lipid Panel * Collection Date 03/13/2025 12/31/2024 07/09/2024 Collection Time 06:31 AM 06:16 AM 06:28 AM Order Date 03/13/2025 12/31/2024 07/09/2024 Triglycerides 56 (Ref Range: <150 mg/dL) 77 (Ref Range: <150 mg/dL) 73 (Ref Range: <150 mg/dL) Cholesterol 121 (Ref Range: <200 mg/dL) 126 (Ref Range: <200 mg/dL) 130 (Ref Range: <200 mg/dL) LDL Cholesterol Calculated 67 (Ref Range: <100 mg/dL) 66 (Ref Range: <100 mg/dL) 69 (Ref Range: <100 mg/dL) HDL Cholesterol 43 (Ref Range: >40 mg/dL) 45 (Ref Range: >40 mg/dL) 47 (Ref Range: >40 mg/dL) * Lab:Uric Acid * Collection Date 03/13/2025 08/01/2024 06/16/2021 Collection Time 06:31 AM 06:28 AM 06:22 AM Order Date 03/13/2025 08/01/2024 06/16/2021 Uric Acid 9.2 H (Ref Range: 3.4-7.0 mg/dL) 7.4 H (Ref Range: 3.4-7.0 mg/dL) 7.3 H (Ref Range: 3.4-7.0 mg/dL) * Lab:Comprehensive [place]. Pane l Fast * Collection Date 03/13/2025 12/31/2024 08/01/2024 Collection Time 06:31 AM 06:16 AM 06:28 AM Order Date 03/13/2025 12/31/2024 08/01/2024 Sodium 140 (Ref Range: 135-145 mmol/L) 140 (Ref Range: 135-145 mmol/L) 139 (Ref Range: 135-145 mmol/L) Bilirubin Total 0.6 (Ref Range: 0.0-1.0 mg/dL) 0.5 (Ref Range: 0.0-1.0 mg/dL) 0.5 (Ref Range: 0.0-1.0 mg/dL) Aspartate Amino Transferase 38 H (Ref Range: 5-37 U/L) 39 H (Ref Range: 5-37 U/L) 44 H (Ref Range: 5-37 U/L) Alanine Aminotransferase 51 H (Ref Range: 0-40 U/L) 51 H (Ref Range: 0-40 U/L) 66 H (Ref Range: 0-40 U/L) Total Protein 6.9 (Ref Range: 6.5-8.0 g/dL) 6.9 (Ref Range: 6.5-8.0 g/dL) 6.6 (Ref Range: 6.5-8.0 g/dL) Albumin Level 4.1 (Ref Range: 3.5-5.0 g/dL) 4.1 (Ref Range: 3.5-5.0 g/dL) 3.9 (Ref Range: 3.5-5.0 g/dL) Alkaline Phosphatase 95 (Ref Range: 39-117 U/L) 87 (Ref Range: 39-117 U/L) 91 (Ref Range: 39-117 U/L) Potassium 4.8 (Ref Range: 3.3-5.1 mmol/L) 4.8 (Ref Range: 3.3-5.1 mmol/L) 5.1 (Ref Range: 3.3-5.1 mmol/L) Chloride 108 (Ref Range: 96-108 mmol/L) 108 (Ref Range: 96-108 mmol/L) 108 (Ref Range: 96-108 mmol/L) Carbon Dioxide 27 (Ref Range: 22-29 mmol/L) 26 (Ref Range: 22-29 mmol/L) 26 (Ref Range: 22-29 mmol/L) Anion Gap 10 L (Ref Range: 12-20) 11 L (Ref Range: 12-20) 10 L (Ref Range: 12-20) Blood Urea Nitrogen 30 H (Ref Range: 9-16 mg/dL) 33 H (Ref Range: 9-16 mg/dL) 27 H (Ref Range: 9-16 mg/dL) Creatinine 1.51 H (Ref Range: 0.5-1.4 mg/dL) 1.51 H (Ref Range: 0.5-1.4 mg/dL) 1.25 (Ref Range: 0.5-1.4 mg/dL) Estimated Glomerular Filt Rate 46 46 57 Glucose Fasting 114 H (Ref Range: 60-99 mg/dL) 116 H (Ref Range: 60-99 mg/dL) 118 H (Ref Range: 60-99 mg/dL) Calcium 9.0 (Ref Range: 8.4-10.2 mg/dL) 9.2 (Ref Range: 8.4-10.2 mg/dL) 8.7 (Ref Range: 8.4-10.2 mg/dL) * Examination: G eneral Examination: GENERAL APPEARANCE: p leasant, well nourished, well developed, in no acute distress, calm and relaxed: overweight: man. HEAD: a traumatic, normocephalic. EYES: e ascencion, perrla, anicteric, conjugate. EARS: N ormal anatomy hearing loss left ear. NOSE: s eptum intact. ORAL CAVITY: n [...] sounds normal, no ascites, no organomegaly, no mass: overweight. RECTAL EXAM: : no masses palpable: stool guaiac negative: prostate normal. MUSCULOSKELETAL: e xtremities unremarkable, no clubbing, cyanosis [...] pressures in the normal range. 2 . O verweight (BMI 25.0-29.9) - E66.3 N otes :His body mass index is 27 we have discussed his diet and nutrition. We made a plan to lose weight at a rate of one half of a pound per week through diet restricted in calories combined with regular physical activity 3 . P rediabetes - R73.03 N otes :He remains overweight with a body mass index of 27. His hemoglobin A1c is 6.0 and his fasting glucose is 114. We discussed the elements of a weight reduction diabetic diet today. He is aware of the significance of prediabetes. 4 . F ormer smoker - Z87.891 N otes :He is highly motivated not to smoke. We discussed strategies for prevention of relapse in times of stress and illness. 5 . H yperlipidemia, unspecified hyperlipidemia type - E78.5 N otes :His lipids are stable and controlled. He is compliant with medication and has no side effects.His total cholesterol is currently 130. No changes in his regimen are needed. 6 . E rectile dysfunction, unspecified erectile dysfunction type - N52.9 & #160; N otes :This problem has been addressed with medications and is resolved. 7 . N on-recurrent bilateral inguinal hernia without obstruction or gangrene - K40.20 N otes :The hernias have been repaired and are not returning. 8 . S ensorineural hearing loss (SNHL) of left ear with unrestricted hearing of right ear - H90.42 N otes :He has been referred to ENT in the past and had hearing tests. If this symptom worsens. He will return. Plan: * Treatment: 2. O verweight (BMI 25.0-29.9) L AB: PROFILE, FASTING (COMPREHENSIVE METABOLIC) L AB: GGT L AB: CBC w DIFF L AB: Uric Acid L AB: Lipid Panel L AB: Hemoglobin A1c 3. P rediabetes L AB: PROFILE, FASTING (COMPREHENSIVE METABOLIC) L AB: GGT L AB: CBC w DIFF L AB: Uric Acid L AB: Lipid Panel L AB: Hemoglobin A1c * Procedure Codes: 9 4760 MEASURE BLOOD OXYGEN LEVEL * Preventive Medicine: Counseling: C are goal follow-up plan: Counseling for abnormal BMI given Y es Above Normal BMI Follow-up D ietary management education, guidance, and counseling S moking/Tobacco Use Patient counseled on the dangers of tobacco use and urged to quit. 0 03/17/2025 * Follow Up: 3 Months (Reason: OV) * Images: * Sign off status: Completed true * Provider: Tawanna Perez MD Date: 0 03/17/2025 Generated for Kishore covarrubias/Valentin/Mary Louitting on: 1 09/13/2024 06:24 AM EST History and Physical Notes * HPI (History of Present Illness) Category Sub-Category Detail Notes Depression Screening PHQ-9 Little inte rest or pleasure in doing things: Not at all Feeling down, depressed, or hopeless: No t at all Trouble falling or staying asleep, or sl eeping too much: Not at all Feeling tired or having little energy: N ot at all Poor appetite or overeating: Not at all Feeling bad about yourself o r that you are a failure, or have let yourself or your family down: Not at all Trouble concentrating on thi ngs, such as reading the newspaper or watching television: Not at all Moving or speaking so slowly that other people could have noticed; or the opposite, being so fidgety or restless that you have been moving around a lot more than usual: Not at all Thoughts that you would be b janes off or of hurting yourself in some way: Not at all Total Score: 0 Fall Risk Screening Fall History Have you had any falls with injury in the past year?: No Have you had two or more falls in the year?: No Fall Risk Assessment:: No falls in the year COVID-19 Screening Questions Have you had any new onset fever, chills, cough, congestion, sore throat, shortness of breath, muscle aches?: No SDOH Questions SDOH Questions In the past year have you been worried about losing your housing?: No In the past year have you or any family members you live with been unable to get any of the following when it was really needed? Check all that apply:: None Examination Category Sub-Category Detail Notes General Examination GENERAL APPEARANCE: pleasant , well nourished, well developed, in no acute distress, calm and relaxed: overweight: man HEAD: atraumatic, normocep halic EYES: eomi, perrla, anicte jeison, conjugate EARS: Normal anatomy heari ng loss left ear NOSE: septum intact NECK/THYROID: no jugular venous di stention, no carotid bruit, thyroid normal HEART: no clicks, gallops, murmurs, or rubs, regular rhythm, S1, S2 normal, no s3, or vascular bruits LUNGS: clear to auscultatio n ABDOMEN: bowel sounds normal, no ascites, no organomegaly, no mass: overweight NEUROLOGIC: alert and oriented, cranial nerves 2-12 grossly intact, deep tendon reflexes 2+ symmetrical, motor strength normal upper and lower extremities, sensory exam intact SKIN: no suspicious lesion s, anicteric PERIPHERAL PULSES: normal BREASTS: no masses palpable b ilaterally MUSCULOSKELETAL: extremities unremark able, no clubbing, cyanosis or edema LYMPH NODES: no enlarged lymph no hattie,spleen normal RECTAL EXAM: : no masses palpable : stool guaiac negative: prostate normal PSYCH: alert, oriented ORAL CAVITY: normal, unremarkable
--- OUTSIDE RECORDS SUMMARY | 2025-07-13 06:24 | XMS_ITS | Patient Health Record ---
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 Role Phone NONE, NONE Primary Care Provider Daniele Carter [phone] Reason For Referral No Information Medications Medication SIG (Take, Route, Frequency, Duration) Notes Start Date End Date Status Aspir-81 81 MG Tablet Delayed Release 1 tablet Orally Once a day; Duration: 30 day(s) Active Immunizations Vaccine Route Administration Date Status Comme nts Influenza Unknown 08/13/2018 Refused Social History Tobacco Use: Social History Observation Description Date Details (start date - stop date) Never Smoker NA - NA Social History Drugs/Alcohol: Social Info Question Answer Notes Alcohol Screen Did you have a drink containing alcohol in the past year? Yes How often did you have a drink containing alcohol in the past year? Monthly or less (1 point) How many drinks did you have on a typical day when you were drinking in the past year? 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[employer] Section Notes: Nonsmoker; occ alcohol Problems Problem Type SNOMED Code ICD Code Onset Dates Problem Status W/U Status Risk Notes Problem Screening for malignant neoplasm of colon (092611215) Encounter for screening for malignant neoplasm of colon (Z12.11) Active confirmed Problem Preprocedural examination (787344537021830) Preprocedural examination (Z01.818) Active confirmed Plan Of Treatment Pending Test Test Name Order Date GI BIOPSY 11/08/2018 Future Test Test Name Order Date COLONOSCOPY 08/13/2018 Insurance Providers Payer Name Payer Address Payer Phone Subscriber Number Group Number Insured Name Patient Relationship to Insured Coverage Start Date Coverage End Date [facility] [address] [facility] [place] [phone] [id number] YOUNG FLOYD Self - patient is the insured Medical (General) History Medical History History ICD Code Denies VT,DM,CVA,Lung disease,renal dise ase Colonoscopy 12/2007 hyperplastic polyps, diverticulosis, internal hemorrhoids Surgical History Surgery Date(Month/Year) Cholecystectomy Vasectomy
--- OUTSIDE RECORDS SUMMARY | 2025-07-13 06:24 | XMS_ITS | Data Portability ---
Author Organization [facility], [facility] Address [address] [place] [address] Assessment Encounter Date Assessment Date Assessment LastModified [...] intact. X-rays ordered, obtained and reviewed at [facility] 2 views of the lumbar spine revealed diffuse degenerative change, no evidence of spondylosis or retrolisthesis noted. Impression: Question spinal stenosis Plan: At this time given patient's symptoms question whether this may be the etiology of his difficulty. Patient will be referred to [facility] for further evaluation in this regard. If it is felt to be more hip oriented patient will come back for possible injections although I am unable to elicit much in terms of hip symptoms today. Follow-up ptalia [facility] speech recognition professor of fine art software was used to create portions of [...] ?spina l stenos is 2023 024 michael [facility], [address] [place] [address], [address], 4 07:58:57 physic al therap ist referr al - End range stretc liliana Rotato r cuff and perisc apular streng thenin g Home exerci se progra m 2023 024 [facility] ([facility]), [address], [place], [address], 4 06:39:24 Procedures None record ed. Surgeries None record ed. Imaging XR, lumbar spine, 2 view 2023 024 michael [facility], [address], [address], [place], [address], 4 07:58:58 XR, hip + pelvis , bilate ral, 3 or 4 view 2023 024 cstamand Not available 4 07:50:52 MRI, should er, w/o contra st 2023 024 [email or web address] [facility] ([facility]), [address], [place], [address], 4 13:17:37 XR, should er, 2 or more view - rm 220 RT shldr 2023 024 cstamand Not available 13:17:37 Medication Orders Diclo Gel 1 % topica l kit 2023 [id number], [address] [place], [place], [id number], 17:16:59 Patient TargetsNo targets recorded. Patient Instructions Encounter Date Encounter Id Patient Instructions Last Modified By Organization Details Last Modified Time 10/30/2023 [id number] iliotibial band syndrome: exercises [email or web address] Not available 10/30/2023 17:15:38 Reason for Referral Physical Therapist Referral for Impingement syndrome of right shoulder region End range stretchingRotator cuff and periscapular strengthening Home exercise program Referring Physician: Pasha Miranda, Orthopedic Surgery, [id number] Encounter Date: 12/04/2023 Pain Management Referral for Low back pain eval ?spinal stenosis PSSP- eval ?spinal stenosis Referring Physician: Julio Vásquez, Orthopedic Surgery, Encounter Date: 04/24/2024 Results Created Date Observation Date Name Description Value Unit Range Abnormal Flag Note LastModifiedBy Organization Detail LastModifiedTime 11/06/19 24 11/05/2023 MRI, boby evaristo, w/o contr ast [facility] Access ion Number : [id number] Patikylah t Name: Bar Wilbert Velaabbie pierce Record Number : [id number] Date of : 1954 Date of Exam: 2023 Referr ing Physic carson: Jimmy Ayon [address] [place] [address] Exam: MR Should er (C-) CPT 73070 - Right Room Descri ption: [place] [facility] Pion 3T Should er MRI right [...] Electr onical ly Signed By: Kati bhatt [facility] ([facility]) [address], [place], [address], 11/07/2023 07:23:16 04/24/20 24 04/24/2024 XR, mirna r spine , 2 view [email or web address]:/ [email or web address] ?Encry pted=s hAaTro YD8dLq bEUv6g %2BXZw aYqtaq 0bqfl% 2Fg9IQ a4ajBk vP9nXo QUaueC m3YtLR FvZlgJ JJ8mAn HZtai3 1u7613 AC0Kqa nuBV6G jKiQtr MwF INTERFACE [facility] [address], [place], [address], 04/24/2024 14:49:13 04/24/20 24 04/24/2024 XR, lumba r spine , 2 view [email or web address]:/ [email or web address] ?Encry pted=s hAaTro YD8dLq bEUv6g %2BXZw aYqtaq 0bqfl% 2Fg9IQ a4ajBk vP9nXo QUaueC m3YtLR FvZlgJ JJ8mAn HZtai3 9g4078 AC0Kqa nuBV6G jKiQtr F INTERFACE [facility] [address], [place], [address], 04/24/2024 14:49:15 Result Notes Documentation Provider Name and Address Organization Details Recorded Time Mri, Shoulder, W/o Contrast : [facility] Accession Number: [id number] Patient Name: Wilbert Dinero Date of : 1955 Date of Exam: 11-05-2023 Referring Physician: Jimmy Ayon [address] [place] [address] Exam: MR Shoulder (C-) CPT 39014 - Right Room Description: [facility] 3T Shoulder MRI right Clinical History: Pain Findings: Mild acromioclavicular osteoarthritis. Mild thickening of the coracoacromial ligament. Narrowed medial and lateral outlets. Small subacromial/subdeltoid bursitis. Mild supraspinatus and infraspinatus tendinopathy. Superimposed small, low-grade partial intrasubstance versus bursal surface tear within lateral outlet fibers at the confluence of the supraspinatus and infraspinatus tendons. The teres minor tendon is intact . The subscapularis tendon is intact . The long head of the biceps tendon is intact . Mild glenohumeral osteoarthritis with small osteophytes. Impression: Supraspinatus and infraspinatus tendinopathy with superimposed small, low-grade partial tear Mild acromioclavicular osteoarthritis. Small subacromial/subdeltoid bursitis. Mild glenohumeral osteoarthritis with small osteophytes. Electronically Signed By: MD [address], [place], [address], [facility] 11/07/2023 07:23:16 Xr, Lumbar Spine, 2 View : [email or web address] crypted=qpSrZsjLK5pShtXIi2s %4CVHurVoekn7etla%3Ph3KCu9r lRdhX7jHjGRbzxPc8WfMHDjHuvN FX5tUuFJsod72p0305BV9OmpyhZ M7HnAxYatTzT Not Available [facility] 04/24/2024 14:49:14 Xr, Lumbar Spine, 2 View : [email or web address] crypted=piMdAbxGP7hDasTVg7p %6JRJywOaicb4exzo%1Xb7KGd1t lWieG0oLbIOtvwUk7RlNASjSqbA VX5lQmAEgsa29l4174CQ8EpsmaU Y7GdXyOsuLtN Not Available [facility] 04/24/2024 14:49:16 Problems Name Problem SNOMED Code Status Onset Date Resolution Date Notes Provider Name and Address Organization Details Recorded Time Pain of right shoulder joint 9415736867805 9100 Active 2023 JD rader [facility] 4 13:44:05 Derangement of right shoulder joint 4420168275291 9105 Active 2023 JD rader [facility] 4 14:02:15 Problem Notes None recorded. Medical Equipment None Reported. [...] 10/26/2023 175.26 cm 5 /min 25.1 kg/m2 30859.7 g JD BOWERS [facility] 10/26/2023 13:42:39 Date Recorded Body height Body mass index (BMI) Body weight Provider Name and Address Organization Details Last Updated DateTime 10/30/2023 175.26 cm 25.1 kg/m2 19621.7 g AILEEN WELSH [facility] 10/30/2023 16:36:51 Date Recorded Body height Provider Name an d Address Organization Details Last Updated DateTime 12/04/2023 175.26 cm WILMA LEUNG [facility] 12/04/2023 15:48:19 Date Recorded Body height Body mass index (BMI) Body weight Provider Name and Address Organization Details Last Updated DateTime 04/24/2024 175.26 cm 25.8 kg/m2 44022.66 g ROBLES VILLANUEVA [facility] 04/24/2024 14:15:48 Social History None recorded. Functional Status None recorded. Mental Status None recorded. Family History Nothing Reported. Medical History Condition Response Allergies/Hayfever N Coronary Artery Disease N Anxiety/Depression N Emphysema N Thyroid Problems N COPD N Pacemaker N Anemia N Kidney/Bladder Problems N Vascular Disease N Gastrointestinal Disease N Heart Attack ([place]) N Diabetes N Autoimmune disease N Bleeding [...] Diagnosis SNOMED-CT Code Diagnosis ICD10 Code Diagnosis IMO Codes Diagnosis Note [id number] MD Marlen Mcdowell [address] [place] [address] 10/26/2023 13:30:29 11/15/2023 13:17:37 Pain of right shoulder joint 7157144597 3380903 M25.511 Derangemen t of right shoulder joint 2777279761 4865298 M24.456 [id number] YAMIL Lopez [address] [place] [address] 10/30/2023 16:31:02 11/19/2023 07:50:52 Pain of hip region 50282444 M25.559 Trochanter ic bursitis of left hip 8393359433 87458 M70.62 Trochanter ic bursitis of right hip 0775985313 10964 M70.61 [id number] YAMIL Morales [address] [place] [address] 12/04/2023 15:33:41 12/25/2023 12:30:26 Impingement syndrome of right shoulder region 2286927062 79099 M75.41 [id number] YAMIL Stewart [address] [place] [address] 04/24/2024 14:06:40 05/06/2024 07:58:57 Low back pain 136648574 M54.50 Health Concerns Section Related Observation LastModified by Organization Detai ls LastModified Time None Recorded Concern Status LastModified by Organization Details LastModified Time None Recorded Advance Directives Directive None Recorded Payers Insurance Date Sequence Insurance Name Policy Number Policy Kerr Covered Member ID Kerr Member ID Guarantor Name 05/06/[address] [place] [address] [id number] Wilbert Rivera Karolinaromán [id number] Wilbert Dinero Notes Date Note Type Note Provider Name and Address Organization Details Recorded Time 10/26/2023 text/html She presents today for evaluation of his right shoulder. 5-year-old right-hand dominant gentleman who reports an acute injury to his right shoulder. History providedPSH and ROS has been reviewed, updated, and signed by me and is located in the patient's chart.On physical examination well-appearing older gentleman acute distress alert and oriented 3. Pleasant affect. Cervix spine range of motion [...] were ordered, obtained and reviewed today at [facility], 4 views obtained right shoulder Jimmy Ayon MD [address], [place], [address], [facility] 10/26/2023 14:31:35 10/30/2023 text/html I am seeing [...] raise.X-rays were ordered, obtained and reviewed at [facility]: AP and lateral of the Bilateral hip demonstrates a well maintained joint space in zone 1, 2, and 3. No cam lesion, pincer lesion, crossover sign. No evidence of AVN or acute fracture.ASSESSMENTSy mptomatic trochanteric bursitis Bilateral hip.TALI reviewed the findings with the patient, discussed [...] sooner if needed. Pavan Avalos PA-C [address], [place], [address], [facility] 10/30/2023 20:06:56 12/04/2023 text/html I am seeing the patient today under the supervision of Dr Moore who was available but who did not [...] No new injury. Pasha Miranda PA-C [address], [place], [address], [facility] 12/05/2023 06:44:47
--- OUTSIDE RECORDS SUMMARY | 2025-07-13 06:25 | XMS_ITS | Patient Health Record ---
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 Daniele Perez III Primary Care Provider [phone] Allergies Allergen (clinical drug ingredient) Drug/Non Drug Allergy documented on EMR Reaction Allergy Type Onset Date Status No Known Drug Allergy Unknown Drug Allergy Active No Known Food Allergy Unknown Drug Allergy Active Results Component Value Reference Range Notes Comprehensive Bandana. Panel Fa st Reviewed date:08/02/2024 08:33:26 AM Interpretation: Performing Lab:[facility], [address] [place] [address] Notes/Report: Sodium 139 135-145 mmol/L Potassium 5.1 [...] Acid Reviewed date:08/02/2024 08:33:26 AM Interpretation: Performing Lab:[facility], [address] [place] [phone] Notes/Report: Uric Acid 7.4 3.4-7.0 mg/dL Complete Blood Count Auto Di ff Reviewed date:12/31/2024 12:55:51 PM Interpretation: Performing Lab:[facility], [address] [place] [phone] Notes/Report: White Blood Count 6.5 4.8-10.8 X10*3/uL Red Blood Count 4.10 4.60-5.80 X10*6/uL Hemoglobin 11.5 14.0-18.0 g/dl Hematocrit 35.2 42.0-52.0 % Mean Corpuscular Volume 85.9 80.0-98.0 fL Mean Corpuscular Hemoglobin 28.0 27.0-33.0 pg Mean Corpuscular HGB Conc 32.7 31.0-36.0 g/dl Red Cell Distribution Width 13.6 11.0-16.0 % Platelet Count 141 160-400 X10*3/uL Mean Platelet Volume 11.0 9.4-12.4 fL Neutrophils Percent Auto 46.3 45-73 % Imm Gran Pct Auto 0.2 0.0-0.4 % Lymphocytes Percent Auto 38.7 20-40 % Monocytes Percent Auto 9.4 2-11 % Eosinophils Percent Auto 4.8 0-4 % Basophils Percent Auto 0.6 0-2 % NRBC Pct Auto 0.0 0.0-0.2 /100WBC Neutrophils Absolute Auto 3.0 2.0-8.3 x10*3/u L Imm Gran Abs Auto 0.01 0.00-0.03 X10*3/uL Lymphocytes Absolute Auto 2.5 1.2-4.9 X10*3/u L Monocytes Absolute Auto 0.6 0.1-1.2 X10*3/uL Eosinophils Absolute Auto 0.3 0.0-0.4 X10*3/u L Basophils Absolute Auto 0.0 0.0-0.2 X10*3/uL NRBC Abs Auto 0.000 0.0-0.012 X10*3/uL Comprehensive [place]. Panel Fa st Reviewed date:12/31/2024 12:55:51 PM Interpretation: Performing Lab:[facility], [address] [place] [phone] Notes/Report: Sodium 140 135-145 mmol/L Potassium 4.8 3.3-5.1 mmol/L Chloride 108 96-108 mmol/L Carbon Dioxide 26 22-29 mmol/L Anion Gap 11 12-20 Blood Urea Nitrogen 33 9-16 mg/dL Creatinine 1.51 0.5-1.4 mg/dL Estimated Glomerular Filt Rate 46 Chronic Kidney Disease: Estimated GFR < 60 mL/min/1.73m2 Severe Kidney Disease: Estimated GFR < 15 mL/min/1.73m2 Glucose Fasting 116 60-99 mg/dL A fasting glucose from 100-125 mg/dl is considered impaired (pre-diabetes). Calcium 9.2 8.4-10.2 mg/dL Bilirubin Total 0.5 0.0-1.0 mg/dL Aspartate Amino Transferase 39 5-37 U/L Alanine Aminotransferase 51 0-40 U/L Total Protein 6.9 6.5-8.0 g/dL Albumin Level 4.1 3.5-5.0 g/dL Alkaline Phosphatase 87 39-117 U/L Lipid Panel Reviewed date:12/31/2024 12:55:51 PM Interpretation: Performing Lab:[facility], [address] [place] [phone] Notes/Report: Triglycerides 77 <150 mg/dL Desirable Triglyceride: less than 150 mg/dL Borderline High Triglyceride 150-199 mg/dL High Triglyceride: 200-499 mg/dL Very High Triglyceride: greater than or equal to 5OO mg/dL Cholesterol 126 <200 mg/dL Desirable Cholesterol: less than 200 mg/dL Borderline High Cholesterol: 200-239 mg/dL High Cholesterol: greater than 239 mg/dL LDL Cholesterol Calculated 66 <100 mg/dL Desirable LDL: less than 100 mg/dL Near Optimal/Above Optimal LDL: 110-129 mg/dL Borderline High LDL: 130-159 mg/dL High LDL: 160-189 mg/dL Very High LDL: greater than or equal to 190 mg/dL HDL Cholesterol 45 >40 mg/dL Desirable HDL: greater than 40 mg/dL Note: This HDL assay may give artificially low results in patients with liver disease. Complete Blood Count Auto Di ff Reviewed date:03/15/2025 07:41:32 PM Interpretation: Performing Lab:[facility], [address] [place] [phone] Notes/Report: White Blood Count 6.6 4.8-10.8 X10*3/uL Red Blood Count 4.44 4.60-5.80 X10*6/uL Hemoglobin 12.5 14.0-18.0 g/dl Hematocrit 37.8 42.0-52.0 % Mean Corpuscular Volume 85.1 80.0-98.0 fL Mean Corpuscular Hemoglobin 28.2 27.0-33.0 pg Mean Corpuscular HGB Conc 33.1 31.0-36.0 g/dl Red Cell Distribution Width 13.2 11.0-16.0 % Platelet Count 158 160-400 X10*3/uL Mean Platelet Volume 10.9 9.4-12.4 fL Neutrophils Percent Auto 52.7 45-73 % Imm Gran Pct Auto 0.3 0.0-0.4 % Lymphocytes Percent Auto 31.0 20-40 % Monocytes Percent Auto 11.0 2-11 % Eosinophils Percent Auto 4.4 0-4 % Basophils Percent Auto 0.6 0-2 % NRBC Pct Auto 0.0 0.0-0.2 /100WBC Neutrophils Absolute Auto 3.5 2.0-8.3 x10*3/u L Imm Gran Abs Auto 0.02 0.00-0.03 X10*3/uL Lymphocytes Absolute Auto 2.0 1.2-4.9 X10*3/u L Monocytes Absolute Auto 0.7 0.1-1.2 X10*3/uL Eosinophils Absolute Auto 0.3 0.0-0.4 X10*3/u L Basophils Absolute Auto 0.0 0.0-0.2 X10*3/uL NRBC Abs Auto 0.000 0.0-0.012 X10*3/uL Comprehensive [place]. Panel Fa st Reviewed date:03/15/2025 07:41:32 PM Interpretation: Performing Lab:[facility], [address] [place] [phone] Notes/Report: Sodium 140 135-145 mmol/L Potassium 4.8 3.3-5.1 mmol/L Chloride 108 96-108 mmol/L Carbon Dioxide 27 22-29 mmol/L Anion Gap 10 12-20 Blood Urea Nitrogen 30 9-16 mg/dL Creatinine 1.51 0.5-1.4 mg/dL Estimated Glomerular Filt Rate 46 Chronic Kidney Disease: Estimated GFR < 60 mL/min/1.73m2 Severe Kidney Disease: Estimated GFR < 15 mL/min/1.73m2 Glucose Fasting 114 60-99 mg/dL A fasting glucose from 100-125 mg/dl is considered impaired (pre-diabetes). Calcium 9.0 8.4-10.2 mg/dL Bilirubin Total 0.6 0.0-1.0 mg/dL Aspartate Amino Transferase 38 5-37 U/L Alanine Aminotransferase 51 0-40 U/L Total Protein 6.9 6.5-8.0 g/dL Albumin Level 4.1 3.5-5.0 g/dL Alkaline Phosphatase 95 39-117 U/L Uric Acid Reviewed date:03/15/2025 07:41:32 PM Interpretation: Performing Lab:[facility], [address] [place] [phone] Notes/Report: Uric Acid 9.2 3.4-7.0 mg/dL Lipid Panel Reviewed date:03/15/2025 07:41:32 PM Interpretation: Performing Lab:[facility], [address] [place] [phone] Notes/Report: Triglycerides 56 <150 mg/dL Desirable Triglyceride: less than 150 mg/dL Borderline High Triglyceride 150-199 mg/dL High Triglyceride: 200-499 mg/dL Very High Triglyceride: greater than or equal to 5OO mg/dL Cholesterol 121 <200 mg/dL Desirable Cholesterol: less than 200 mg/dL Borderline High Cholesterol: 200-239 mg/dL High Cholesterol: greater than 239 mg/dL LDL Cholesterol Calculated 67 <100 mg/dL Desirable LDL: less than 100 mg/dL Near Optimal/Above Optimal LDL: 110-129 mg/dL Borderline High LDL: 130-159 mg/dL High LDL: 160-189 mg/dL Very High LDL: greater than or equal to 190 mg/dL HDL Cholesterol 43 >40 mg/dL Desirable HDL: greater than 40 mg/dL Note: This HDL assay may give artificially low results in patients with liver disease. Hemoglobin A1c Reviewed date:03/15/2025 07:41:32 PM Interpretation: Performing Lab:[facility], [address] [place] [address], [place] [address] Notes/Report: Hemoglobin A1c % 6.0 <6.0 % Hemoglobin A1C Reference Range Adults: 4.8 - 6.0 % Non diabetic: < 6.0 % Goal: < 7.0 % Additional Action Suggested: > 8.0 % Note: Hemoglobin A1c results are invalid for patients with abnormal amounts of HbF. Blood transfusions may impact the HbA1c concentration in the patient sample. Estimated Average Glucose 126 eAG = Estimated average glucose which is %A1C expressed as average glucose, using the formula of the [id number] Average Glucose study (ADAG), Diabetes Care, Vol.31,#8, 2007 Reason For Referral No Information Medications Medication SIG (Take, Route, Frequency, Duration) Notes Start Date End Date Status Metoprolol Tartrate 75 MG 1 tablet with food Orally Twice a day Active hydroCHLOROthiazide 25 MG 1 tablet Orall y Once a day Active Atorvastatin Calcium 80 MG 1 tablet Oral ly in the evening Active Lisinopril 20 MG 1 tablet Orally Once a day 08/19/2024 Active Ketoconazole 2 % 1 application Externally twice a day for 30 days 03/17/2025 03/12/2026 Active amLODIPine Besylate 10 MG 1 tablet Orall y Once a day Active Aspirin 81 81 MG 1 tablet Orally Once a day Active Immunizations Vaccine Route Administration Date Status Comme nts Influenza-iiv4 p-free high dose Unknown 05/20/2023 Admi nistered Tdap Unknown 03/26/2021 Administered Fluzone High-Dose (HD-IIV3) Unknown 04/25/2024 Administ ered RSV Adjuvant Unknown 06/03/2023 Administered COVID PFIZER Unknown 10/13/2020 Administered COVID PFIZER Unknown 05/18/2021 Administered COVID PFIZER Unknown 11/03/2020 Administered Comirnaty Pfizer COVID-19 12+ Unknown 05/20/2023 Admini stered Comirnaty Pfizer COVID-19 12+ Unknown 04/25/2024 Admini stered Social History Tobacco Use: Social History Observation [...] Problem Status W/U Status Risk Notes Problem 9236086 Former smoker (Z87.891) Active confirmed He is highly motivated not to smoke. We discussed strategies for prevention of relapse in times of stress and illness. Problem 540887974 Overweight (BMI 25.0-29.9) (E66.3) Active confirmed His body mass index is 27 we have discussed his diet and nutrition. We made a plan to lose weight at a rate of one half of a pound per week through diet restricted in calories combined with regular physical activity Problem 359908839 Overweight (E66.3) Active confirmed His body mass index is 27. He has lost a couple of pounds. We discussed his weight loss strategy today and his diet and nutrition. We made a plan to lose weight at a rate of one half of a pound per week. Problem Hypertension (06028484) HTN (hypertension) (I10) Active confirmed He tolerates th e lisinopril well. His blood pressures in the normal range. Problem 842360336 Erectile dysfunction, unspecified erectile dysfunction type (N52.9) Active confirmed This problem abrams s been addressed with medications and is resolved. Problem Hyperlipidaemia (17825819) Hyperlipidemia, unspecified hyperlipidemia type (E78.5) Active confirmed His lipids are stable and controlled. He is compliant with medication and has no side effects.His total cholesterol is currently 130. No changes in his regimen are needed. Problem 388065121 Prediabetes (R73.03) Active confirmed He remains overweight with a body mass index of 27. His hemoglobin A1c is 6.0 and his fasting glucose is 114. We discussed the elements of a weight reduction diabetic diet today. He is aware of the significance of prediabetes. Problem 12406416 Right anterior shoulder pain (M25.511) Active confirmed He has been referred to the orthopedic clinic for definitive diagnosis and treatment. Problem 333803457 Peripheral arterial occlusive disease (I77.9) Active confirmed He has no claudication but decreased pulses in the left leg. This will be observed along with vascular surgery. Problem 10104248 Degenerative disc disease, lumbar (M51.36) Active confirmed He will cont inue with the massages and physical therapy and use ibuprofen. Problem 19508899 Non-recurrent bilateral inguinal hernia without obstruction or gangrene (K40.20) Active confirmed The hernias hav e been repaired and are not returning. Problem 26776169 Hyperuricemia (E79.0) Active confirmed His uric acid [...] not want to be treated now. Problem 553051785 Sensorineural hearing loss (SNHL) of left ear with unrestricted hearing of right ear (H90.42) Active confirmed He has been referred to ENT in the past and had hearing tests. If this symptom worsens. He will return. Problem 268253347 Coronary artery disease involving coronary bypass graft of [place] heart without angina pectoris (I25.810) Active confirmed His stress test was quite positive, so he went occurred. Nares artery catheterization and then to coronary artery bypass surgery at [facility]. He recovered well without incident. He is no longer in atrial fibrillation. His medications were reviewed with him. His echocardiogram showed good cardiac function. Aggressive risk reduction is in place. Problem Low back pain (733562121) Low back pain, unspecified (M54.50) Active confirmed He complains of pain in the back. It radiates into his hips. X-rays of the spine and pelvis and hip joints were ordered. Problem Tendinosis of right shoulder (904127280375579 00) Tendinosis of right shoulder (M67.813) Active confirmed Vital Signs Heart Rate 54 /min 03/17/2025 Temperature 97.9 degrees Fahrenheit 03/17/2025 Respiratory Rate 16 /min 03/17/2025 Oximetry 96 % 03/17/2025 Blood pressure diastolic 80 mm Hg 03/17/2025 Height 68.5 in 03/17/2025 Blood pressure systolic 136 mm Hg 03/17/2025 Weight 183 lbs 03/17/2025 BMI 27.42 kg/m2 03/17/2025 Encounters Encounter Location Date Provider Diagnosis Daniele Perez III, MD [address] [place] [address] [place] [address] 07/16/2024 Daniele Perez HTN (hypertension) I 10 ; Coronary artery disease involving coronary bypass graft of [place] heart without angina pectoris I25.810 ; Overweight E66.3 ; Hyperuricemia E79.0 ; Hyperlipidemia, unspecified hyperlipidemia type E78.5 ; Former smoker Z87.891 ; Sensorineural hearing loss (SNHL) of left ear with unrestricted hearing of right ear H90.42 ; Peripheral arterial occlusive disease I77.9 and Right groin pain R10.31 Daniele Perez III, MD [address] [place] [address] [place] [address] 08/04/2024 Daniele Perez HTN (hypertension) I 10 [...] right shoulder M67.813 Daniele Perez III, MD [address] [place] [address] [place] [address] 08/19/2024 Daniele Perez HTN (hypertension) I 10 ; Right lower quadrant abdominal pain R10.31 ; Hyperlipidemia, unspecified hyperlipidemia type E78.5 ; Former smoker Z87.891 ; Overweight (BMI 25.0-29.9) E66.3 ; Sensorineural hearing loss (SNHL) of left ear with unrestricted hearing of right ear H90.42 ; Peripheral arterial occlusive disease I77.9 ; Coronary artery disease involving coronary bypass graft of [place] heart without angina pectoris I25.810 and Hyperuricemia E79.0 Daniele Perez III, MD [address] [place] [address] [place] [address] 09/30/2024 Daniele Perez HTN (hypertension) I 10 ; Coronary artery disease involving coronary bypass graft of [place] heart without angina pectoris I25.810 ; Hyperlipidemia, unspecified hyperlipidemia type E78.5 ; Overweight (BMI 25.0-29.9) E66.3 ; Former smoker Z87.891 ; Sensorineural hearing loss (SNHL) of left ear with unrestricted hearing of right ear H90.42 and Peripheral arterial occlusive disease I77.9 Daniele Perez III, MD [address] [place] [address] [place] [address] 01/02/2025 Daniele Perez HTN (hypertension) I 10 ; Prediabetes R73.03 ; Former smoker Z87.891 ; Hyperlipidemia, unspecified hyperlipidemia type E78.5 ; Sensorineural hearing loss (SNHL) of left ear with unrestricted hearing of right ear H90.42 ; Erectile dysfunction, unspecified erectile dysfunction type N52.9 ; Peripheral arterial occlusive disease I77.9 ; Overweight (BMI 25.0-29.9) E66.3 ; Coronary artery disease involving coronary bypass graft of [place] heart without angina pectoris I25.810 ; Low back pain, unspecified M54.50 and Degenerative disc disease, lumbar M51.36 Daniele Perez III, MD [address] [place] [address] [place] [address] 03/17/2025 Daniele Perez HTN (hypertension) I 10 ; Overweight (BMI 25.0-29.9) E66.3 ; Prediabetes R73.03 ; Former smoker Z87.891 ; Hyperlipidemia, unspecified hyperlipidemia type E78.5 ; Erectile dysfunction, unspecified erectile dysfunction type N52.9 ; Non-recurrent bilateral inguinal hernia without obstruction or gangrene K40.20 and Sensorineural hearing loss (SNHL) of left ear with unrestricted hearing of right ear H90.42 Daniele Perez III, MD [address] [place] [address] [place] [phone] 02/13/2025 Daniele Perez III, MD [address] [place] [address] [place] [address] 02/16/2025 Daniele Perez Assessments Encounter Date Diagnosis (ICD [...] artery disease involving coronary bypass graft of [place] heart without angina pectoris (ICD-10 - I25.810) His stress test was quite positive, so he went occurred. Nares artery catheterization and then to coronary artery bypass surgery at [facility]. He recovered well without incident. He [...] artery disease involving coronary bypass graft of [place] heart without angina pectoris (ICD-10 - I25.810) His stress test was quite positive, so he went occurred. Nares artery catheterization and then to coronary artery bypass surgery at [facility]. He recovered well without incident. He is no longer in atrial fibrillation. His medications were reviewed with him. His echocardiogram showed good cardiac function. Aggressive risk reduction is in place. 01/02/2025 HTN (hypertension) (ICD-10 - I10) He tolerates the lisinopril well. His blood pressures in the normal range. 01/02/2025 Prediabetes (ICD-10 - R73.03) His fasting glucose has been 120 and then 116. He was concerned that he had prediabetes and we discussed this concept at length. I recommended aggressive follow-up as well as weight loss and a diet low in concentrated sweets. 03/17/2025 Overweight (BMI 25.0-29.9) (ICD-10 - E66.3) His body mass index is 27 we have discussed his diet and nutrition. We made a plan to lose weight at a rate of one half of a pound per week through diet restricted in calories combined with regular physical activity 03/17/2025 HTN (hypertension) (ICD-10 - I10) He tolerates the lisinopril well. His blood pressures in the normal range. 07/16/2024 Overweight (ICD-10 - E66.3) His body [...] changes in his regimen are needed. 01/02/2025 Former smoker (ICD-10 - Z87.891) He is highly motivated not to smoke. We discussed strategies for prevention of relapse in times of stress and illness. 03/17/2025 Prediabetes (ICD-10 - R73.03) He remains overweight with a body mass index of 27. His hemoglobin A1c is 6.0 and his fasting glucose is 114. We discussed the elements of a weight reduction diabetic diet today. He is aware of the significance of prediabetes. 07/16/2024 Hyperuricemia (ICD-10 - E79.0) Value will [...] of the abdominal discomfort is underway. 01/02/2025 Hyperlipidemia, unspecified hyperlipidemia type (ICD-10 - E78.5) His lipids are stable and controlled. He is compliant with medication and has no side effects.His total cholesterol is currently 130. No changes in his regimen are needed. 03/17/2025 Former smoker (ICD-10 - Z87.891) He is highly motivated not to smoke. We discussed strategies for prevention of relapse in times of stress and illness. 07/16/2024 Hyperlipidemia, unspecified hyperlipidemia type (ICD-10 - [...] in times of stress and illness. 01/02/2025 Sensorineural hearing loss (SNHL) of left ear with unrestricted hearing of right ear (ICD-10 - H90.42) He has been referred to ENT in the past and had hearing tests. If this symptom worsens. He will return. 03/17/2025 Hyperlipidemia, unspecified hyperlipidemia type (ICD-10 - E78.5) His lipids are stable and controlled. He is compliant with medication and has no side effects.His total cholesterol is currently 130. No changes in his regimen are needed. 07/16/2024 Former smoker (ICD-10 - Z87.891) He [...] addressed with medications and is resolved. 03/17/2025 Erectile dysfunction, unspecified erectile dysfunction type (ICD-10 - N52.9) This problem has been addressed with medications and is resolved. 07/16/2024 Sensorineural hearing loss (SNHL) of left [...] be observed along with vascular surgery. 01/02/2025 Peripheral arterial occlusive disease (ICD-10 - I77.9) He has no claudication but decreased pulses in the left leg. This will be observed along with vascular surgery. 03/17/2025 Non-recurrent bilateral inguinal hernia without obstruction or gangrene (ICD-10 - K40.20) The hernias have been repaired and are not returning. 07/16/2024 Peripheral arterial occlusive disease (ICD-10 - I77.9) He has no claudication but decreased pulses in the left leg. This will be observed along with vascular surgery. 08/04/2024 Peripheral arterial occlusive disease (ICD-10 - I77.9) He has no claudication but decreased pulses in the left leg. This will be observed along with vascular surgery. 08/19/2024 Coronary artery disease involving coronary bypass graft of [place] heart without angina pectoris (ICD-10 - I25.810) His stress test was quite positive, so he went occurred. Nares artery catheterization and then to coronary artery bypass surgery at [facility]. He recovered well without incident. He is no longer in atrial fibrillation. His medications were reviewed with him. His echocardiogram showed good cardiac function. Aggressive risk reduction is in place. 01/02/2025 Overweight (BMI 25.0-29.9) (ICD-10 - E66.3) He has lost 9 pounds since his last visit for unclear reasons. He says his appetite is fair. An investigation of the abdominal discomfort is underway. 03/17/2025 Sensorineural hearing loss (SNHL) of left ear with unrestricted hearing of right ear (ICD-10 - H90.42) He has been referred to ENT in the past and had hearing tests. If this symptom worsens. He will return. 07/16/2024 Right groin pain (ICD-10 - R10.31) [...] does not want to be treated now. 01/02/2025 Coronary artery disease involving coronary bypass graft of [place] heart without angina pectoris (ICD-10 - I25.810) His stress test was quite positive, so he went occurred. Nares artery catheterization and then to coronary artery bypass surgery at [facility]. He recovered well without incident. He [...] therapy and use ibuprofen. Plan Of Treatment Pending Test Test Name Order Date PROFILE, FASTING (COMPREHENSIVE METABOLI C) 03/09/2023 PROFILE, FASTING (COMPREHENSIVE METABOLI C) 03/12/2024 PROFILE, FASTING (COMPREHENSIVE METABOLI C) 03/11/2019 PROFILE, FASTING (COMPREHENSIVE METABOLI C) 09/30/2024 PROFILE, FASTING (COMPREHENSIVE METABOLI C) 01/12/2023 PROFILE, FASTING (COMPREHENSIVE METABOLI C) 10/09/2022 PROFILE, FASTING (COMPREHENSIVE METABOLI C) 10/05/2023 PROFILE, FASTING (COMPREHENSIVE METABOLI C) 07/14/2022 PROFILE, FASTING (COMPREHENSIVE METABOLI C) 03/17/2025 PROFILE, FASTING (COMPREHENSIVE METABOLI C) 01/02/2025 PROFILE, FASTING (COMPREHENSIVE METABOLI C) 06/01/2023 PROFILE, FASTING (COMPREHENSIVE METABOLI C) 07/16/2024 PROFILE, FASTING (COMPREHENSIVE METABOLI C) 04/02/2019 LIPID PANEL 04/02/2019 LIPID PANEL 03/09/2023 LIPID PANEL 03/11/2019 LIPID PANEL 01/12/2023 LIPID PANEL 10/09/2022 LIPID PANEL 07/14/2022 GGT 03/17/2025 PSA, TOTAL 06/01/2023 PSA, TOTAL 04/02/2019 PSA, TOTAL 03/12/2024 PSA, TOTAL 03/09/2023 PSA, TOTAL 03/11/2019 PSA, TOTAL 01/12/2023 PSA, TOTAL 10/09/2022 PSA, TOTAL SCREEN 07/14/2022 CBC w DIFF 10/09/2022 CBC w DIFF 01/02/2025 CBC w DIFF 03/17/2025 CBC w DIFF 07/14/2022 CBC w DIFF 06/01/2023 CBC w DIFF 04/02/2019 CBC w DIFF 03/12/2024 CBC w DIFF 03/09/2023 CBC w DIFF 03/11/2019 CBC w DIFF 01/12/2023 Stress Test 10/09/2022 CBC WITH AUTO DIFF 09/30/2024 CBC WITH AUTO DIFF 10/05/2023 Uric Acid 07/16/2024 Uric Acid 01/02/2025 Uric Acid 03/17/2025 Lipid Panel 10/05/2023 Lipid Panel 01/02/2025 Lipid Panel 06/01/2023 Lipid Panel 03/17/2025 Lipid Panel 09/30/2024 Lipid Panel 03/12/2024 Hemoglobin A1c 01/02/2025 Hemoglobin A1c 03/17/2025 Next Appt Details Provider Name:Daniele Frost Ana , 07/15/2025 02:30:00 PM, [address] [facility] [address] [place], [place], [address], Provider Name:Daniele Mannne , 03/19/2026 02:00:00 PM, [address] [facility] [address], [place], [address], Insurance Providers Payer Name Payer Address Payer Phone Subscriber Number Group Number Insured Name Patient Relationship to Insured Coverage Start Date Coverage End Date [employer] [address] [address] [place] [address] [phone] [id number] YOUNG DINERO Self - patient is the insured Medical (General) History Medical History History ICD Code Hyperlipidemia E78.5 appendectomy vasectomy ED repaired bilateral inguinal hernias overweight hearing loss, left ear former smoker peripheral arterial disease essential hypertension Peripheral arterial disease, right super ficial femoral artery Surgical History Surgery Date(Month/Year) No history Triple Bi-pass Surgery 11/17/2022 Coronary artery bypass grafting x3 11/23 13 Angioplasty and atherectomy right superf icial femoral artery 11/2020 colonoscopy, negative, Dr. Daniele Alfaro, [facility]. 2019 bilateral inguinal hernia repair 03/2015 vasectomy appendectomy Hospitalization History Reason Date(Month/Year) No history
[2025-07-13 06:34] LABS: MANUAL DIFF FLAG NO
[2025-07-13 07:16] LABS: Hematocrit 39.5 % (42.0-52.0); Hemoglobin 12.9 g/dl (14.0-18.0); Imm Gran Abs Auto 0.02 X10*3/uL (0.00-0.03); Imm Gran Pct Auto 0.3 % (0.0-0.4); Lymphocytes Absolute Auto 2.4 X10*3/uL (1.2-4.9); Mean Corpuscular HGB Conc 32.7 g/dl (31.0-36.0); Mean Corpuscular Hemoglobin 28.4 pg (27.0-33.0); Mean Corpuscular Volume 87.0 fL (80.0-98.0); NRBC Abs Auto 0.000 X10*3/uL (0.0-0.012); NRBC Pct Auto 0.0 /100WBC (0.0-0.2); Platelet Count 147 X10*3/uL (160-400); Red Blood Count 4.54 X10*6/uL (4.60-5.80); White Blood Count 6.6 X10*3/uL (4.8-10.8)
[2025-07-13 07:31] LABS: Alanine Aminotransferase 46 U/L (0-40); Albumin Level 4.1 g/dL (3.5-5.0); Alkaline Phosphatase 86 U/L (39-117); Anion Gap 12 (12-20); Aspartate Amino Transferase 39 U/L (5-37); Blood Urea Nitrogen 29 mg/dL (9-16); Calcium 9.1 mg/dL (8.4-10.2); Carbon Dioxide 25 mmol/L (22-29); Chloride 109 mmol/L (96-108); Cholesterol 137 mg/dL (<200); Estimated Glomerular Filt Rate 47; Gamma Glutamyl Transpeptidase 64 U/L (11-51); HDL Cholesterol 49 mg/dL (>40); Potassium 4.9 mmol/L (3.3-5.1); Sodium 141 mmol/L (135-145); Total Protein 6.7 g/dL (6.5-8.0); Triglycerides 65 mg/dL (<150); Uric Acid 7.6 mg/dL (3.4-7.0)
== END 2025-07-13 06:20 | disposition home or self-care (01) ==
LOC: HO.LAB 06:19
PROVIDERS: PCP Internal Medicine Medical Oncology; Visit Provider Internal Medicine Medical Oncology
DX: I10 Essential (primary) hypertension (principal); N52.9 Male erectile dysfunction, unspecified; E78.5 Hyperlipidemia, unspecified; E66.3 Overweight; M10.9 Gout, unspecified; R73.03 Prediabetes
CPT/HCPCS: 36415; 80053; 80061; 82977; 83036; 84550; 85025